=== PATIENT | male | born 1995 | race Caucasian/White ===

== ENCOUNTER 2024-04-19 20:59 | Emergency (ER) | payer MEDICAID, SELFPAY ==
--- NOTE | ~2024-04-19 | CT_ITS ---
CT abdomen pelvis wo con Ordering provider: Marcio Purvis MD History: 28 years Male with . right flank pain blood in urine . Comparison: None. Technique: CT abdomen and pelvis without IV and without oral contrast. Automated exposure control and iterative reconstruction technique were employed. The dose-length product was 508.40 mGy-cm. Findings: VISUALIZED LOWER CHEST: Normal. UPPER ABDOMINAL ORGANS: Liver: Slight hepatomegaly. Gallbladder: Not demonstrated suggestive of surgical removed. Spleen: Normal. Stomach/duodenum: Normal. Pancreas: Normal. Adrenals: Normal. Kidneys: Normal. PELVIC ORGANS: The bladder is normal. BOWEL AND MESENTERY: Colon: No evidence of diverticulitis. Fecal material is seen in the right side of the colon. The desc ending colon is seen medially with small bowel is seen lateral to the colon. The appendix is not demo nstrated. Small Bowel: Normal. No obstruction. Peritoneum/mesentery: No free air or free fluid. No mesenteric lymphadenopathy. RETROPERITONEUM: Normal aorta. No retroperitoneal lymphadenopathy. MUSCULOSKELETAL: Superficial soft tissues: The superficial soft tissues are normal. Bones: Normal spine. IMPRESSION: 1. No evidence of appendicitis, diverticulitis or intestinal obstruction. 2. Hepatomegaly. 3. Constipation. Reviewed, dictated and finalized at location A.
[2024-04-19 20:59] VITALS: BP 130/87; PULSE 98; RESP 20; TEMP 36.8; O2SAT 98
--- NOTE | 2024-04-19 21:24 | PC.NURSE ---
DR SANCHEZ AT THE BEDSIDE. BLOOD WORK AND URINE TAKEN DOWN TO LAB
--- NOTE | 2024-04-19 21:33 | PC.NURSE ---
PATIENT TRANSPORTED TO CT
[2024-04-19 21:34] LABS: Basophils Absolute Auto 0.04 K/mm3 (0.00-0.10); Basophils Percent Auto 0.6 % (0.0-1.0); Eosinophils Absolute Auto 0.12 K/mm3 (0.02-0.50); Eosinophils Percent Auto 1.7 % (1.0-6.0); Hematocrit 43.7 % (40.0-54.0); Hemoglobin 14.6 g/dL (14.0-18.0); Immature Granulocyte Absolute 0.03 K/mm3 (0.00-0.00); Immature Granulocyte Percent A 0.4 % (0.0-0.0); Lymphocytes Percent Auto 33.4 % (18.0-42.0); Mean Corpuscular HGB Conc 33.4 g/dL (32-36); Mean Corpuscular Hemoglobin 28.5 pg (27.0-31.0); Mean Corpuscular Volume 85.4 fL (78.0-102.0); Mean Platelet Volume 9.6 fl (8.7-11.0); Monocytes Absolute Auto 0.51 K/mm3 (0.10-0.90); Monocytes Percent Auto 7.4 % (2.0-11.0); Neutrophils Absolute Auto 3.88 K/mm3 (1.70-7.20); Neutrophils Percent Auto 56.5 % (50.0-70.0); Platelet Count Result 268 K/mm3 (150-420); Red Blood Count 5.12 M/mm3 (4.70-6.10); Red Cell Distribution Width 13.9 % (11.6-14.4); White Blood Count 6.9 K/mm3 (4.8-10.8)
[2024-04-19] MEDS: SODIUM CHLORIDE 0.9% IV 1,000 ML 999 ML IV CONT (21:36)
[2024-04-19] MEDS: MORPHINE SULFATE (*CRX) 4 MG/ML INJ IV PUSH (21:36)
[2024-04-19] MEDS: ONDANSETRON INJ 4 MG/2 ML VIAL IV PUSH (21:36)
--- OUTSIDE RECORDS SUMMARY | 2024-04-19 21:41 | XMS_ITS | Encounter Summary ---
Author Organization [facility] Address [address] [place] [address] Care Team Providers Care Professor Of Languages Name Role Phone Unavailable Primary Care Provider Unavailabl e Prior Encounters Date Type Department Care Team Description 02/26/2019 Converted CPS Chart Documents [facility] [id number], [facility] [address] [place] [address] <No scans attached> 02/26/2019 Converted 13x Documents [facility] [id number], [facility] [address] [place] [address] <No scans attached> Plan of Treatment Not on file Procedures Procedure Name Priority Date/Time Associated Diagnosis Comments MISSED APPOINTMENT Routine 05/12/2020 1: 00 AM MDT CANCELLED APPOINTMENT Routine 04/28/2020 1:00 AM MDT COMPREHENSIVE ORAL EVALUATION - NEW OR ESTABLISHED PATIENT Routine 04/16/2020 1:00 AM MST PANORAMIC RADIOGRAPHIC IMAGE Routine 04/16/2020 1:00 AM MST INTRAORAL - COMPREHENSIVE SERIES OF RADIOGRAPHIC IMAGES Routine 04/16/2020 1:00 AM MST INTRAORAL PHOTO Routine 04/16/2020 1:00 AM MST INTRAORAL PHOTO Routine 04/16/2020 1:00 AM MST INTRAORAL PHOTO Routine 04/16/2020 1:00 AM MST INTRAORAL PHOTO Routine 04/16/2020 1:00 AM MST 13 MOD COMPOSITE FILLING Routine 021 1:00 AM MST 4 MOD COMPOSITE FILLING Routine 04/17/19 21 1:00 AM MST Visit Diagnoses Not on file
--- OUTSIDE RECORDS SUMMARY | 2024-04-19 21:41 | XMS_ITS | Encounter Summary ---
Author Organization [facility] Address [address] [place] [address] Phone Care Team Providers Care Owner Manager Name Role Phone No Pcp Per Patient Primary Care Provider Unavail able Encounter Details Date Type Department Care Team (Late st Contact Info) Description 11/12/2018 Procedure Pass [facility] at [address] [address] Social History Tobacco Use Types Packs/Day Years Used Date Smoking Tobacco: Never Smokeless Tobacco: Never Alcohol Use Standard Drinks/Week Comments Yes 0 (1 standard drink = 0.6 oz pure alcohol) 1-2 drinks (mix cocktail) every two weeks Sex and Gender Information Value Date Recorded Sex Assigned at Not on file Legal Sex Male 9:55 AM PST Gender Identity Male 09/26/2022 8:29 PM PDT Sexual Orientation Not on file documented as of this encounter Functional Status * Because of a physical, mental, or emotional condition, do you have serious difficulty doing errandsalone such as visiting the doctor? Answer Date of Assessment Author Status No 11/22/2016 9:52 AM PDT Activ e documented as of this encounter Mental Status * Because of a physical, mental, or emotional condition, do you have serious difficulty concentrating, remembering, or making decisions? (5 years old or older) Answer Entry Date Author Status No 11/22/2016 9:52 AM PDT Activ e documented in this encounter Plan of Treatment Not on file documented as of this encounter Visit Diagnoses Not on filedocumented in this encounter Care Teams Owner Manager Relationship Specialty Start Date End Date No Pcp Per Patient NO PCP PER PATIENT PCP - General 04/14/19 documented as of this encounter
--- OUTSIDE RECORDS SUMMARY | 2024-04-19 21:41 | XMS_ITS | Data Portability ---
Author Organization [place] - [facility] , Main Office Address [address] [place] [address] Care Team Providers Care Broadcast Maintenance Technician Name Role Phone SHERIF MEHTA Primary Care Provider [phone] Assessment Encounter Date Assessment Date Assessment LastModified by Organization Details LastModified Time 04/05/2022 04/05/2022 Cedric is a very pleasant 26-year-old male here today to establish urologic care. He has a complex past medical history significant for hypospadias that was repaired at 6 months, urethroplasty repaired with buccal graft [place] [address] Munoz, myocardial infarction status post CABG, inherent clotting disorder, and urinary retention last year. He also has a history of hypogonadism for which he is on testosterone replacement therapy with IM testosterone and anastrozole for gynecomastia/breas t tenderness. He was living in [place] last year when he went into urinary retention. Their attempts at placing Benavides catheter were unsuccessful and he ultimately required urologic intervention. He was seen at the [facility] that time and it was recommended that he undergo surgery for a recurrent stricture. He was then evaluated by Dr. Calle at [facility]. There he underwent cystoscopy and a retrograde urethrogram was also performed. He reports that they were able to maneuver the cystoscope into his bladder but that he had what sounds like a functional obstruction proximally. Was unclear whether or not this was a stricture versus a functional dysfunction from a tortuous ureter or pelvic floor dysfunction. At that time he was referred for pelvic floor physical therapy but due to insurance reasons this was not performed. His retrograde urethrogram demonstrated dilated proximal urethra that was tortuous but I do not have access to the actual images. 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 He is taking IM testosterone and anastrozole for his hypogonadism. He is interested in switching to Testopel. We did discuss the increased risk of bleeding and clotting should we attempt to perform Testopel. Ultimately I think that something like Jatenzo may be safer for him. He will consider his options and let us know. We full PAR-Q was held regarding the different options for TRT. At this time, I would like for him to see pelvic floor physical therapy as I do agree some component of this may surely be functional. I would also recommend that he follow-up with Dr. Calle at for further management of his urethral stricture history so as to avoid any unnecessary repetitive procedures. Should this not be possible then I would recommend repeat cystoscopy as well as a voiding cystourethrogram. Currently however he is emptying well with no recurrent episodes of retention since last year. For now would like for him to get new testosterone labs in 2 to 3 months and we will proceed from there. He most recently had testosterone and hematocrit checked in February and these were within normal limits. [id number] Not available 04/05/2022 17:28:33 06/17/2022 06/17/2022 06/17/22: Cedric returns today for follow-up regarding his history of urethral stricture, hypogonadism, and nephrolithiasis. Since I last saw him he was able to schedule a visit with his previous urologist at the [facility] for further review regarding his lower urinary tract symptoms. In the meantime he has yet to see pelvic floor physical therapy due to some insurance difficulties and I did resend a referral today. He has undergone testosterone evaluation and I was able to review these results which demonstrated testosterone in the 600s and estradiol within normal limits. He is scheduled to see the reconstructive urologist at [facility] in July. Otherwise he does also report some small stones that he passed recently. He has a known history of small 2 to 3 mm kidney stones that are nonobstructing. At this time I would recommend a 24-hour urinalysis to further evaluate the etiology of his stone disease. He is amenable to this and will follow-up with me in August with a Litholink after he is seen the reconstructive urologist. In the meantime he will continue with testosterone. 04/05/22: Cedric is a very pleasant 26-year-old male here today to establish urologic care. He has a complex past medical history significant for hypospadias that was repaired at 6 months, urethroplasty repaired with buccal graft in [address] Munoz, myocardial infarction status post CABG, inherent clotting disorder, and urinary retention last year. He also has a history of hypogonadism for which he is on testosterone replacement therapy with IM testosterone and anastrozole for gynecomastia/breas t tenderness. He was living in [place] last year when he went into urinary retention. Their attempts at placing Benavides catheter were unsuccessful and he ultimately required urologic intervention. He was seen at the [facility] that time and it was recommended that he undergo surgery for a recurrent stricture. He was then evaluated by Dr. Calle at [facility]. There he underwent cystoscopy and a retrograde urethrogram was also performed. He reports that they were able to maneuver the cystoscope into his bladder but that he had what sounds like a functional obstruction proximally. Was unclear whether or not this was a stricture versus a functional dysfunction from a tortuous ureter or pelvic floor dysfunction. At that time he was referred for pelvic floor physical therapy but due to insurance reasons this was not performed. His retrograde urethrogram demonstrated dilated proximal urethra that was tortuous but I do not have access to the actual images. 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 He is taking IM testosterone and anastrozole for his hypogonadism. He is interested in switching to Testopel. We did discuss the increased risk of bleeding and clotting should we attempt to perform Testopel. Ultimately I think that something like Jatenzo may be safer for him. He will consider his options and let us know. We full PAR-Q was held regarding the different options for TRT. At this time, I would like for him to see pelvic floor physical therapy as I do agree some component of this may surely be functional. I would also recommend that he follow-up with Dr. Calle at for further management of his urethral stricture history so as to avoid any unnecessary repetitive procedures. Should this not be possible then I would recommend repeat cystoscopy as well as a voiding cystourethrogram. Currently however he is emptying well with no recurrent episodes of retention since last year. For now would like for him to get new testosterone labs in 2 to 3 months and we will proceed from there. He most recently had testosterone and hematocrit checked in February and these were within normal limits. [email or web address] Not available 07/08/2022 15:59:45 11/30/2022 11/30/2022 11/30/22: He returns today for follow-up evaluation. He reports he has had difficulty getting into [facility] for follow-up with his urologist there regarding his urethral stricture disease and is interested in transitioning care here. As such we will plan for cystoscopy in the coming weeks to evaluate for recurrence of his stricture disease. Otherwise he has been doing well with his current dose of testosterone and is not having any polycythemia. We will plan to continue him on his current dose. He has however been to the ED several times since I last saw him with flank pain and concern for kidney stones. Was able to review an old 24-hour urinalysis from 2019 that demonstrated low levels of urine and elevated uric acid levels in his urine. His last stone analysis showed a 100% uric acid calculi. He has not had any recent imaging in the last few months despite several trips to the ED due to concerns about radiation exposure. I would recommend a renal ultrasound at this point. I would also like for him to complete a new 24-hour urinalysis and we will plan to start him on potassium citrate. Full PAR-Q was held regarding this. He is amenable to this and will follow-up with me in the coming weeks for cystoscopy. 06/17/22: Cedric returns today for follow-up regarding his history of urethral stricture, hypogonadism, and nephrolithiasis. Since I last saw him he was able to schedule a visit with his previous urologist at the [facility] for further review regarding his lower urinary tract symptoms. In the meantime he has yet to see pelvic floor physical therapy due to some insurance difficulties and I did resend a referral today. He has undergone testosterone evaluation and I was able to review these results which demonstrated testosterone in the 600s and estradiol within normal limits. He is scheduled to see the reconstructive urologist at [facility] in July. Otherwise he does also report some small stones that he passed recently. He has a known history of small 2 to 3 mm kidney stones that are nonobstructing. At this time I would recommend a 24-hour urinalysis to further evaluate the etiology of his stone disease. He is amenable to this and will follow-up with me in August with a Litholink after he is seen the reconstructive urologist. In the meantime he will continue with testosterone. 04/05/22: Cedric is a very pleasant 26-year-old male here today to establish urologic care. He has a complex past medical history significant for hypospadias that was repaired at 6 months, urethroplasty repaired with buccal graft [place] [address] Munoz, myocardial infarction status post CABG, inherent clotting disorder, and urinary retention last year. He also has a history of hypogonadism for which he is on testosterone replacement therapy with IM testosterone and anastrozole for gynecomastia/breas t tenderness. He was living in [place] last year when he went into urinary retention. Their attempts at placing Benavides catheter were unsuccessful and he ultimately required urologic intervention. He was seen at the [facility] that time and it was recommended that he undergo surgery for a recurrent stricture. He was then evaluated by Dr. Calle at [facility]. There he underwent cystoscopy and a retrograde urethrogram was also performed. He reports that they were able to maneuver the cystoscope into his bladder but that he had what sounds like a functional obstruction proximally. Was unclear whether or not this was a stricture versus a functional dysfunction from a tortuous ureter or pelvic floor dysfunction. At that time he was referred for pelvic floor physical therapy but due to insurance reasons this was not performed. His retrograde urethrogram demonstrated dilated proximal urethra that was tortuous but I do not have access to the actual images. 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 He is taking IM testosterone and anastrozole for his hypogonadism. He is interested in switching to Testopel. We did discuss the increased risk of bleeding and clotting should we attempt to perform Testopel. Ultimately I think that something like Jatenzo may be safer for him. He will consider his options and let us know. We full PAR-Q was held regarding the different options for TRT. At this time, I would like for him to see pelvic floor physical therapy as I do agree some component of this may surely be functional. I would also recommend that he follow-up with Dr. Calle at for further management of his urethral stricture history so as to avoid any unnecessary repetitive procedures. Should this not be possible then I would recommend repeat cystoscopy as well as a voiding cystourethrogram. Currently however he is emptying well with no recurrent episodes of retention since last year. For now would like for him to get new testosterone labs in 2 to 3 months and we will proceed from there. He most recently had testosterone and hematocrit checked in February and these were within normal limits. [email or web address] Not available 11/30/2022 14:31:20 12/09/2022 12/09/2022 12/09/22: He returns today for follow-up evaluation. Cystoscopy demonstrated an area of significant tortuosity in the bulbar urethra which made it very difficult to advance the cystoscope. Eventually I was able to navigate past this and the more proximal urethra appeared widely patent. Overall the area of tortuosity is short, less than 1 cm. However he does feel like he is having to strain more more to void. Cystoscopy did not demonstrate significant trabeculations but he did have trace trabeculation. Ultimately I suspect that he would be best served by a urethroplasty. Given how short the segment is a nontransecting urethroplasty would likely suffice. He would like to proceed with urethroplasty. However he is overall fairly content with his symptoms and it does empty his bladder well. As such he will monitor his symptoms for now and let us know when they become bothersome enough. In the meantime I would recommend a UroCuff evaluation in the coming weeks to ensure that he is not voiding with high pressures. In the meantime a full PAR-Q was held regarding urethroplasty including the need for postoperative catheter for 14 days. 11/30/22: He returns today for follow-up evaluation. He reports he has had difficulty getting into [facility] for follow-up with his urologist there regarding his urethral stricture disease and is interested in transitioning care here. As such we will plan for cystoscopy in the coming weeks to evaluate for recurrence of his stricture disease. Otherwise he has been doing well with his current dose of testosterone and is not having any polycythemia. We will plan to continue him on his current dose. He has however been to the ED several times since I last saw him with flank pain and concern for kidney stones. Was able to review an old 24-hour urinalysis from 2019 that demonstrated low levels of urine and elevated uric acid levels in his urine. His last stone analysis showed a 100% uric acid calculi. He has not had any recent imaging in the last few months despite several trips to the ED due to concerns about radiation exposure. I would recommend a renal ultrasound at this point. I would also like for him to complete a new 24-hour urinalysis and we will plan to start him on potassium citrate. Full PAR-Q was held regarding this. He is amenable to this and will follow-up with me in the coming weeks for cystoscopy. 06/17/22: Cedric returns today for follow-up regarding his history of urethral stricture, hypogonadism, and nephrolithiasis. Since I last saw him he was able to schedule a visit with his previous urologist at the [facility] for further review regarding his lower urinary tract symptoms. In the meantime he has yet to see pelvic floor physical therapy due to some insurance difficulties and I did resend a referral today. He has undergone testosterone evaluation and I was able to review these results which demonstrated testosterone in the 600s and estradiol within normal limits. He is scheduled to see the reconstructive urologist at [facility] in July. Otherwise he does also report some small stones that he passed recently. He has a known history of small 2 to 3 mm kidney stones that are nonobstructing. At this time I would recommend a 24-hour urinalysis to further evaluate the etiology of his stone disease. He is amenable to this and will follow-up with me in August with a Litholink after he is seen the reconstructive urologist. In the meantime he will continue with testosterone. 04/05/22: Cedric is a very pleasant 26-year-old male here today to establish urologic care. He has a complex past medical history significant for hypospadias that was repaired at 6 months, urethroplasty repaired with buccal graft [place] [address] Munoz, myocardial infarction status post CABG, inherent clotting disorder, and urinary retention last year. He also has a history of hypogonadism for which he is on testosterone replacement therapy with IM testosterone and anastrozole for gynecomastia/breas t tenderness. He was living in [place] last year when he went into urinary retention. Their attempts at placing Benavides catheter were unsuccessful and he ultimately required urologic intervention. He was seen at the [facility] that time and it was recommended that he undergo surgery for a recurrent stricture. He was then evaluated by Dr. Calle at [facility]. There he underwent cystoscopy and a retrograde urethrogram was also performed. He reports that they were able to maneuver the cystoscope into his bladder but that he had what sounds like a functional obstruction proximally. Was unclear whether or not this was a stricture versus a functional dysfunction from a tortuous ureter or pelvic floor dysfunction. At that time he was referred for pelvic floor physical therapy but due to insurance reasons this was not performed. His retrograde urethrogram demonstrated dilated proximal urethra that was tortuous but I do not have access to the actual images. 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 He is taking IM testosterone and anastrozole for his hypogonadism. He is interested in switching to Testopel. We did discuss the increased risk of bleeding and clotting should we attempt to perform Testopel. Ultimately I think that something like Jatenzo may be safer for him. He will consider his options and let us know. We full PAR-Q was held regarding the different options for TRT. At this time, I would like for him to see pelvic floor physical therapy as I do agree some component of this may surely be functional. I would also recommend that he follow-up with Dr. Calle at for further management of his urethral stricture history so as to avoid any unnecessary repetitive procedures. Should this not be possible then I would recommend repeat cystoscopy as well as a voiding cystourethrogram. Currently however he is emptying well with no recurrent episodes of retention since last year. For now would like for him to get new testosterone labs in 2 to 3 months and we will proceed from there. He most recently had testosterone and hematocrit checked in February and these were within normal limits. [email or web address] Not available 12/09/2022 19:27:22 04/19/2023 04/19/2023 04/19/23: He returns today for follow up. He reports post operative pain for which he did visit the emergency department. Currently he is doing well. He does have a very superficial dehiscence of his wound without signs of infection. His catheter was removed today. He has resumed anticoagulation and not had any significant bleeding or bruising. He otherwise continues to do well from a hypogonadism standpoint and we will plan for him to continue with his current dose with repeat labs later this year. He has not yet completed a 24 hour urinalysis for further management of his recurrent stones and this was ordered again today. Otherwise I would like for him to follow up with us in 3 months with urocuff. Should his stream slow down prior to that or should he feel he needs to strain to void then he will let us know. 12/09/22: He returns today for follow-up evaluation. Cystoscopy demonstrated an area of significant tortuosity in the bulbar urethra which made it very difficult to advance the cystoscope. Eventually I was able to navigate past this and the more proximal urethra appeared widely patent. Overall the area of tortuosity is short, less than 1 cm. However he does feel like he is having to strain more more to void. Cystoscopy did not demonstrate significant trabeculations but he did have trace trabeculation. Ultimately I suspect that he would be best served by a urethroplasty. Given how short the segment is a nontransecting urethroplasty would likely suffice. He would like to proceed with urethroplasty. However he is overall fairly content with his symptoms and it does empty his bladder well. As such he will monitor his symptoms for now and let us know when they become bothersome enough. In the meantime I would recommend a UroCuff evaluation in the coming weeks to ensure that he is not voiding with high pressures. In the meantime a full PAR-Q was held regarding urethroplasty including the need for postoperative catheter for 14 days. 11/30/22: He returns today for follow-up evaluation. He reports he has had difficulty getting into [facility] for follow-up with his urologist there regarding his urethral stricture disease and is interested in transitioning care here. As such we will plan for cystoscopy in the coming weeks to evaluate for recurrence of his stricture disease. Otherwise he has been doing well with his current dose of testosterone and is not having any polycythemia. We will plan to continue him on his current dose. He has however been to the ED several times since I last saw him with flank pain and concern for kidney stones. Was able to review an old 24-hour urinalysis from 2019 that demonstrated low levels of urine and elevated uric acid levels in his urine. His last stone analysis showed a 100% uric acid calculi. He has not had any recent imaging in the last few months despite several trips to the ED due to concerns about radiation exposure. I would recommend a renal ultrasound at this point. I would also like for him to complete a new 24-hour urinalysis and we will plan to start him on potassium citrate. Full PAR-Q was held regarding this. He is amenable to this and will follow-up with me in the coming weeks for cystoscopy. 06/17/22: Cedric returns today for follow-up regarding his history of urethral stricture, hypogonadism, and nephrolithiasis. Since I last saw him he was able to schedule a visit with his previous urologist at the [facility] for further review regarding his lower urinary tract symptoms. In the meantime he has yet to see pelvic floor physical therapy due to some insurance difficulties and I did resend a referral today. He has undergone testosterone evaluation and I was able to review these results which demonstrated testosterone in the 600s and estradiol within normal limits. He is scheduled to see the reconstructive urologist at [facility] in July. Otherwise he does also report some small stones that he passed recently. He has a known history of small 2 to 3 mm kidney stones that are nonobstructing. At this time I would recommend a 24-hour urinalysis to further evaluate the etiology of his stone disease. He is amenable to this and will follow-up with me in August with a Litholink after he is seen the reconstructive urologist. In the meantime he will continue with testosterone. 04/05/22: Cedric is a very pleasant 26-year-old male here today to establish urologic care. He has a complex past medical history significant for hypospadias that was repaired at 6 months, urethroplasty repaired with buccal graft [place] [address] Munoz, myocardial infarction status post CABG, inherent clotting disorder, and urinary retention last year. He also has a history of hypogonadism for which he is on testosterone replacement therapy with IM testosterone and anastrozole for gynecomastia/breas t tenderness. He was living in [place] last year when he went into urinary retention. Their attempts at placing Benavides catheter were unsuccessful and he ultimately required urologic intervention. He was seen at the [facility] that time and it was recommended that he undergo surgery for a recurrent stricture. He was then evaluated by Dr. Calle at [facility]. There he underwent cystoscopy and a retrograde urethrogram was also performed. He reports that they were able to maneuver the cystoscope into his bladder but that he had what sounds like a functional obstruction proximally. Was unclear whether or not this was a stricture versus a functional dysfunction from a tortuous ureter or pelvic floor dysfunction. At that time he was referred for pelvic floor physical therapy but due to insurance reasons this was not performed. His retrograde urethrogram demonstrated dilated proximal urethra that was tortuous but I do not have access to the actual images. 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 He is taking IM testosterone and anastrozole for his hypogonadism. He is interested in switching to Testopel. We did discuss the increased risk of bleeding and clotting should we attempt to perform Testopel. Ultimately I think that something like Jatenzo may be safer for him. He will consider his options and let us know. We full PAR-Q was held regarding the different options for TRT. At this time, I would like for him to see pelvic floor physical therapy as I do agree some component of this may surely be functional. I would also recommend that he follow-up with Dr. Calle at for further management of his urethral stricture history so as to avoid any unnecessary repetitive procedures. Should this not be possible then I would recommend repeat cystoscopy as well as a voiding cystourethrogram. Currently however he is emptying well with no recurrent episodes of retention since last year. For now would like for him to get new testosterone labs in 2 to 3 months and we will proceed from there. He most recently had testosterone and hematocrit checked in February and these were within normal limits. [email or web address] Not available 04/20/2023 19:00:06 Plan of Treatment Reminders Order Date Submit Date Provider Last Modified By Organization Details Last Modified Time Details Appointments None recorded. Lab unlisted lab - litholink 24HR urine panel 2023 024 MARICHUY [facility], [address], [place], [address], 4 05:01:11 kidney stone, 24-hour urine panel 2022 023 MARICHUY [facility], [address] , [facility] [address], [address], 4 05:01:34 testosteron e, total, serum 2022 023 [email or web address] [facility], [address], [place], [address], 3 12:33:53 estradiol, serum 2022 023 [email or web address] [facility], [address] [facility], [place], [address], 3 12:33:54 hematocrit, blood 2022 023 [email or web address] [facility], [address] [facility], [place], [address], 3 12:33:54 urinalysis, dipstick, auto 2022 023 [email or web address] [facility], [facility], [address], [address], [place], [address], 3 17:28:36 Referral pelvic floor therapy referral - history of pelvic pain, voiding dysfunction 2022 023 [email or web address] [facility], [address] [facility], [address], [place], [address], 4 13:11:27 pelvic floor therapy referral - eval voiding dysfunction /pelvic discomfort 2022 023 [email or web address] [facility], [address], [address], [place], [address], 4 12:26:40 urologist referral - hx buccal repair, seen by Dr. Calle in 2021 023 [email or web address] Alexandria Calle MD, [address], [place], [address], 3 18:00:16 Procedures None recorded. Surgeries None recorded. Imaging US, kidney - eval kidney stone. Please contact patient to schedule. 2022 023 [email or web address] [facility], [address] [place], [address], 4 18:19:49 US, bladder [address] [employer] [facility], [address] [facility] [address], [address], [place], [address], 3 14:29:11 US, bladder [address] [employer] [facility], [address], [address], [place], [address], 3 17:28:36 Medication Orders None recorded. Patient TargetsNo targets recorded. Patient InstructionsNo instructions recorded. Reason for Referral Urologist Referral for Ureth ral stricture hx buccal repair, seen by Dr. Calle in 2021 Referring Physician: [facility], Encounter Date: 04/05/2022 Pelvic Floor Therapy Referra l for Chronic prostatitis - chronic pelvic pain syndrome evaluate and treat pelvic pain history of pelvic pain, voiding dysfunction Referring Physician: [facility], Encounter Date: 06/17/2022 Pelvic Floor Therapy Referra l for Chronic prostatitis - chronic pelvic pain syndrome eval voiding dysfunction/pelvic discomfort eval voiding dysfunction/pelvic discomfort Referring Physician: [facility], Encounter Date: 06/17/2022 Results Created Date Observation Date Name Description Value Unit Range Abnormal Flag Note LastModifiedBy Organization Detail LastModifiedTime 04/05/1904/05/2022 urina lysis , dipst ick, auto leukocytes- final neg negati ve Not Available [facility] [employer] [facility] [address], [place], [address], 04/05/2022 16:34:57 04/05/19 23 04/05/2022 urina lysis , dipst ick, auto nitrite- final neg negati ve Not Available [facility] [employer] [facility] [address], [place], [address], 04/05/2022 16:34:57 04/05/19 23 04/05/2022 urina lysis , dipst ick, auto urobilinogen - final 3.5 mg/dL <0.2 to 1.0 Not Available [address], [address], 04/05/2022 16:34:57 04/05/19 23 04/05/2022 urina lysis , dipst ick, auto protein- final neg negati ve Not Available [address], [address], 04/05/2022 16:34:57 04/05/19 23 04/05/2022 urina lysis , dipst ick, auto pH- final 6.0 6.0 to 7.0 Not Available [address], [address], 04/05/2022 16:34:57 04/05/19 23 04/05/2022 urina lysis , dipst ick, auto blood- final neg negati ve Not Available [address], [address], 04/05/2022 16:34:57 04/05/19 23 04/05/2022 urina lysis , dipst ick, auto specific gravity- final 1.025 1.001 to 1.035 Not Available [address], [address], 04/05/2022 16:34:57 04/05/19 23 04/05/2022 urina lysis , dipst ick, auto ketones- final neg negati ve Not Available [address], [address], 04/05/2022 16:34:57 04/05/19 23 04/05/2022 urina lysis , dipst ick, auto bilirubin- final neg negati ve Not Available [facility] [address] [place] [address], [address], 04/05/2022 16:34:57 04/05/19 23 04/05/2022 urina lysis , dipst ick, auto glucose- final 5 negati ve Not Available [facility] [address] [facility] [address] [place] [address], [address], 04/05/2022 16:34:57 04/05/19 23 04/05/2022 urina lysis , dipst ick, auto appearance- final clear clear Not Available [facility] [address] [place] [address], [address], 04/05/2022 16:34:57 04/05/19 23 04/05/2022 urina lysis , dipst ick, auto color- final yellow yellow to baljeet Not Available [facility] [address], [address], 04/05/2022 16:34:57 11/26/1911/25/2022 LIPID PANEL REFLE X DIREC T LDL cholesterol 155 mg/dL <=199 normal Not Available [facility] - (Lab) [address] [place], [address], 11/25/2022 16:53:52 11/26/1911/25/2022 LIPID PANEL REFLE X DIREC T LDL HDL cholesterol 35 mg/dL >=40 low Not Available [facility] - (Lab) [address] [place], [address], 11/25/2022 16:53:52 11/26/1911/25/2022 LIPID PANEL REFLE X DIREC T LDL triglyceride s 343 mg/dL <=149 high Not Available [facility] - (Lab) [address] [place], [address], 11/25/2022 16:53:52 11/26/19 23 11/25/2022 LIPID PANEL REFLE X DIREC T LDL LDL calc 51 mg/dL <=99 normal Natio nal Onelia stero l Educa tion Panel Class ifica tions : Onelia stero l (mg/d L): Moder ate Risk: 200-2 39; High Risk: >/=24 0 HDL Onelia stero l (mg/d L): Low: <40; High: >/=60 Trigl yceri de (mg/d L; fasti ng): Borde rline High: 150-1 99; High: 200-4 99; Very High: >/=50 0 LDL Onelia stero l (mg/d L): Near or above optim al: 100-1 29; Borde rline High: 130-1 59; High: 160-1 89; Very High: >/=19 0 Not Available [facility] - (Lab) [address] [place], [address], 11/25/2022 16:53:52 11/26/1911/25/2022 LIPID PANEL REFLE X DIREC T LDL chol HDL ratio 4.4 Not Available [facility] - (Lab) [address] [place], [address], 11/25/2022 16:53:52 11/26/1911/25/2022 LIPID PANEL REFLE X DIREC T LDL lipid rflx fasting NON-FA STING Not Available [facility] - (Lab) [address] [place], [address], 11/25/2022 16:53:52 11/26/1911/25/2022 VITAM IN D 25 HYDRO XY vit D 25OH 44.9 NG/mL 30.0-1 00.0 normal Not Available [facility] - (Lab) [address] [place], [address], 11/25/2022 16:57:50 11/26/1911/25/2022 ESTRA DIOL estradiol 25 pg/mL 0-40 normal FEMAL E: Folli cular 20-14 4 pg/mL Midcy hank 64-35 7 pg/mL Lutea l 56-21 4 pg/mL Postm enopa usal( Untre ated) 0-32 pg/mL If estra diol value s are less than the detec table , when clini dania relev ant, consi aliyah using HPLC/ MS-MS testi ng (LAB2 092). Not Available [facility] - (Lab) [address] [place], [address], 11/25/2022 16:59:41 11/26/1911/25/2022 CBC WITH AUTO DIFF AND PLT WBC 6.4 10^9/ L 3.9-10 .6 normal Not Available [facility] - (Lab) [address] [place], [address], 11/25/2022 17:47:08 11/26/1911/25/2022 CBC WITH AUTO DIFF AND PLT RBC 5.61 10^12 /L 4.50-6 .00 normal Not Available [facility] - (Lab) [address] [place], [address], 11/25/2022 17:47:08 11/26/1911/25/2022 CBC WITH AUTO DIFF AND PLT HGB 16.8 g/dL 13.5-1 7.5 normal Not Available [facility] - (Lab) [address] [place], [address], 11/25/2022 17:47:08 11/26/1911/25/2022 CBC WITH AUTO DIFF AND PLT HCT 49.7 % 41.0-5 3.0 normal Not Available [facility] - (Lab) [address] [place], [address], 11/25/2022 17:47:08 11/26/1911/25/2022 CBC WITH AUTO DIFF AND PLT MCV 88.6 fL 80.0-1 00.0 normal Not Available [facility] - (Lab) [address] [place], [address], 11/25/2022 17:47:08 11/26/19 23 11/25/2022 CBC WITH AUTO DIFF AND PLT MCH 29.9 pg 25.0-3 5.0 normal Not Available [facility] - (Lab) [address] [place], [address], 11/25/2022 17:47:08 11/26/1911/25/2022 CBC WITH AUTO DIFF AND PLT MCHC 33.8 g/dL 31.0-3 7.0 normal Not Available [facility] - (Lab) [address] [place], [address], 11/25/2022 17:47:08 11/26/1911/25/2022 CBC WITH AUTO DIFF AND PLT RDW SD 43.8 fL 35.1-4 6.3 normal Not Available [facility] - (Lab) [address] [place], [address], 11/25/2022 17:47:08 11/26/1911/25/2022 CBC WITH AUTO DIFF AND PLT RDW CV 13.8 % 11.5-1 4.5 normal Not Available [facility] - (Lab) [address] [place], [address], 11/25/2022 17:47:08 11/26/1911/25/2022 CBC WITH AUTO DIFF AND PLT plt 305 10^9/ L 140-44 4 normal Not Available [facility] - (Lab) [address] [place], [address], 11/25/2022 17:47:08 11/26/19 23 11/25/2022 CBC WITH AUTO DIFF AND PLT MPV 10.6 fL 6.5-12 .3 normal Not Available [facility] - (Lab) [address] [place], [address], 11/25/2022 17:47:08 11/26/19 23 11/25/2022 CBC WITH AUTO DIFF AND PLT neutrophils 57.6 % 40.0-8 1.0 normal Not Available [facility] - (Lab) [address] [place], [address], 11/25/2022 17:47:08 11/26/19 23 11/25/2022 CBC WITH AUTO DIFF AND PLT lymphocytes 31.2 % 18.0-4 2.0 normal Not Available [facility] - (Lab) [address] [place], [address], 11/25/2022 17:47:08 11/26/19 23 11/25/2022 CBC WITH AUTO DIFF AND PLT monocytes 7.4 % 1.0-12 .5 normal Not Available [facility] - (Lab) [address] [place], [address], 11/25/2022 17:47:08 11/26/19 23 11/25/2022 CBC WITH AUTO DIFF AND PLT eosinophils 2.5 % 0.0-7. 0 normal Not Available [facility] - (Lab) [address] [place], [address], 11/25/2022 17:47:08 11/26/19 23 11/25/2022 CBC WITH AUTO DIFF AND PLT basophils 0.8 % 0.0-2. 0 normal Not Available [facility] - (Lab) [address] [place], [address], 11/25/2022 17:47:08 11/26/19 23 11/25/2022 CBC WITH AUTO DIFF AND PLT immature grans, auto 0.5 % 0.0-1. 0 normal Not Available [facility] - (Lab) [address] [place], [address], 11/25/2022 17:47:08 11/26/19 23 11/25/2022 CBC WITH AUTO DIFF AND PLT neutrophils abs 3.7 10^9/ L 1.8-8. 0 normal Not Available [facility] - (Lab) [address] [place], [address], 11/25/2022 17:47:08 11/26/19 23 11/25/2022 CBC WITH AUTO DIFF AND PLT lymphocytes abs 2.0 10^9/ L 1.0-4. 8 normal Not Available [facility] - (Lab) [address] [place], [address], 11/25/2022 17:47:08 11/26/19 23 11/25/2022 CBC WITH AUTO DIFF AND PLT monocytes abs 0.5 10^9/ L 0.0-0. 9 normal Not Available [facility] - (Lab) [address] [place], [address], 11/25/2022 17:47:08 11/26/19 23 11/25/2022 CBC WITH AUTO DIFF AND PLT eosinophils abs 0.2 10^9/ L 0.0-0. 5 normal Not Available [facility] - (Lab) [address] [place], [address], 11/25/2022 17:47:08 11/26/19 23 11/25/2022 CBC WITH AUTO DIFF AND PLT basophils abs 0.0 10^9/ L 0.0-0. 2 normal Not Available [facility] - (Lab) [address] [place], [address], 11/25/2022 17:47:08 11/26/19 23 11/25/2022 CBC WITH AUTO DIFF AND PLT immature grans, abs 0.03 10^9/ L 0.00-0 .03 normal Not Available [facility] - (Lab) [address] [place], [address], 11/25/2022 17:47:08 11/26/1911/25/2022 TESTO STERO NE, TOTAL AND FREE, LC/MS sex hormone binding globulin 15 nmol/ L 15-95 normal Not Available [facility] - (Lab) [address] [place], [address], 11/27/2022 15:47:41 11/26/19 23 11/27/2022 TESTO STERO NE, TOTAL AND FREE, LC/MS testosterone , lc-MS/MS 998 NG/dL 300-10 80 normal Testo stero ne LC-MS /MS INTER PRETA TIVE INFOR MATIO N-Tot al Testo stero ne, Tanne r Stage Stage Male Femal e Tanne r Stage l 2-15 ng/dL 2-17 ng/dL Tanne r Stage ll 3-303 ng/dL 5-40 ng/dL Tanne r Stage lll 10-85 1 ng/dL 10-63 ng/dL Tanne r Stage IV-V 162-8 47 ng/dL 11-62 ng/dL REFER ENCE INTER ALCIRA, Testo stero ne, LC-MS /MS Age/g kenia speci fic refer ence inter alcira appea rs on repor t. Test devel opariela and verito cteri stics deter mined by [facility]. The [place] Food and Drug Admin istra tion (FDA) has not appro [place] or clear ed this test. The resul ts are not inten ded to be used as the sole means for clini emeli diagn osis or patie nt manag ement decis ions. Not Available [facility] - (Lab) [address] [place], [address], 11/27/2022 15:47:41 11/26/19 23 11/27/2022 TESTO STERO NE, TOTAL AND FREE, LC/MS testosterone , free lc MS 328.1 pg/mL 47.0-2 44.0 high Testo stero ne, Free LC-MS /MS Tanne r Stage Refer ence Inter vals Tanne r Stage Male Femal e Tanne r Stage l Less than 3.8 pg/mL Less than 2.2 pg/mL Tanne r Stage ll 0.3-2 1 pg/mL 0.4-4 .5 pg/ml Tanne r Stage III 1-98 pg/mL 1.3-7 .5 pg/mL Tanne r Stage IV 35-16 9 pg/mL 1.1-1 5.5 pg/mL Tanne r Stage V 41-23 9 pg/mL 0.8-9 .2 pg/mL To conve rt to pmol/ L, multi ply pg/mL by 3.47. The guy ntrat ion of Free Testo stero ne is deriv ed from a jessy hill al expre ssion based on the const ant for the cuong ng of testo stero ne to sex hormo ne cuong ng globu karel. REFER ENCE INTER ALCIRA-T estos kaya e, Free LC MS/MS age/g kenia speci fic refer ence inter vals appea r on the repor t. Test mj bishop and verito bocanegra stics deter mined by [facility] [place] [facility]. The [place] Food and Drug Admin istra tion (FDA) has not appro [place] or clear ed this test. The resul ts are not inten ded to be used as the sole means for clini emeli diagn osis or patie nt manag ement decis ions. Not Available [facility] - (Lab) [address] [place], [address], 11/27/2022 15:47:41 11/26/1911/27/2022 TESTO STERO NE, TOTAL AND FREE, LC/MS testosterone , % free lc MS 3.3 % 0.9-3. 3 normal Not Available [facility] - (Lab) [address] [place], [address], 11/27/2022 15:47:41 11/26/19 23 11/25/2022 HEMOG LOBIN A1C Hb A1C, % 5.3 % <=6.4 normal Paz l: < 5.7% Incre ased risk: 5.7 % - 6.4 % Diabe [facility] Melli tus: >= 6.5 % Not Available [facility] - (Lab) [address] [place], [address], 11/25/2022 21:22:51 11/26/19 23 11/25/2022 HEMOG LOBIN A1C ega 105 mg/dL eGA calcu latio ns from Diabe [facility] 31:14 73-14 78,20 08 Not Available [facility] - (Lab) [address] [place], [address], 11/25/2022 21:22:51 04/05/19 23 04/05/2022 US, bladd er No observ ation record ed. [email or web address] [facility] [address] [place] [address], [address], 04/05/2022 17:38:03 12/01/19 23 11/30/2022 US, bladd er No observ ation record ed. [email or web address] [facility] [address], [address], 11/30/2022 19:54:38 Result Notes None recorded. Problems Name Problem SNOMED Code Status Onset Date Resolution Date Notes Provider Name and Address Organization Details Recorded Time History of pulmonary embolus 939982169 Completed 201903/04/2019 Ad[facility] bark[facility] 4 19:04:07 Heartburn 03748139 Active Maritza Perez-Meet ingucurtis null, [facility] 3 16:16:17 Depressiv e disorder 93875201 Completed 201903/04/2019 Adelaidalucian barker, [facility] 4 19:04:07 Attention deficit hyperacti vity disorder 444883438 Completed 201903/04/2019 Adelaidalucian barker, [facility] 4 19:04:07 Inappropr iate sinus tachycard ia 338258712 [facility] 3 16:16:17 Blood coagulati on disorder 32748857 Active [facility], [facility] 3 16:16:17 Prediabet es 857859630 Completed 201903/04/2019 Adelaida Christensen null, [place] - [facility] 4 19:04:07 Epigastri c pain 51238759 Active [facility] inguez null, [facility] 3 16:16:17 Hematemes is 0466879 Active 2019 [facility] inguez null, [facility] 3 16:16:17 Male hypogonad ism 24826613 Active 2022 Parish Quiroz PA-C [address], [address], [place] [facility] 3 18:16:38 Kidney stone 85627824 Active 2022 Parish Quiroz PA-C [address], [address], [place] - [facility] 3 18:16:44 Disorder of hemostati c system 020467708 Completed 201903/04/2019 Adelaida Christensen null, [place] [facility] 4 19:04:07 History of coronary artery bypass grafting 410824389 Completed 202004/23/2020 Adelaida Christensen null, [facility] 4 19:04:07 Body mass index 40+ - severely obese 076033107 Completed 202004/23/2020 Adelaida Christensen null, [facility] 4 19:04:07 Mild mixed bipolar I disorder 74819649 Completed 202004/23/2020 [facility] Amparo barker, [facility] 4 19:04:07 Hyperlipi demia 82461624 Completed 202004/23/2020 [facility] Amparo null, [facility] 4 19:04:07 Essential hypertens ion 33033558 Completed 202004/23/2020 [facility] Amparo [facility], [facility] 4 19:04:07 Obstructi ve sleep apnea syndrome 54370174 Completed 202004/23/2020 [facility] Amparo barker, [facility] 4 19:04:07 Heart disease 12505918 Active [address] [facility] 16:16:17 Problem Notes None recorded. Procedures Surgical History Date Name Laterality Status Provider Name and Address Organization Details Recorded Time 07/12/19 24 SD-UroCuff cancelled Khushi Lo Located within [facility] 07/11/2023 13:24:04 04/19/19 24 Benavides Catheter Removal completed Vonnie Monreal MD [address] [facility] [address], [address], [facility] 04/19/2023 17:53:35 12/10/19 23 SS cystoscopy M completed Vonnie Monreal MD [address] [facility] [address], [place], [address], [facility] 12/09/2022 19:27:06 12/01/19 23 Bladder Scan/PVR completed Khushi Lo [facility] 11/30/2022 14:24:58 04/05/19 23 Bladder Scan/PVR completed Maritza [facility] 04/05/2022 16:21:39 06/10/19 17 Bladder Scan[facility]PVR [facility] 06/09/2016 19:19:05 Cabg vein four completed [facility] 06/09/2016 19:17:44 Imaging Results Imaging Date Name Status LastModified by Organiz ation Details LastModified Time 04/05/2022 US, bladder completed [email or web address] [facility] [address], [place], [address], 04/05/2022 17:38:03 11/30/2022 US, bladder completed [email or web address] [facility], [facility] [address], [place], [address], 11/30/2022 19:54:38 Procedure Notes None recorded. Medical Equipment None Reported. Allergies Allergen ID Allergen Name Allergen Category Reaction Reaction Severity Criticality Documentation Date Start Date Code Code System Note Provider Name and Address Organization Details Recorded Time Product containin g penicilli n (product) medicatio n hives Not available Not available 06/09/2016 84021 8001 SNOMED Not Available Not Available Not Available mirtazapi ne medicatio n Not available Not available Not available 06/09/20162015 25776 RxNorm Other react ions and sever ities : 'Othe r (See Comme nts)' . Not Available Not Available Not Available 24787 diltiazem Not available anaphylax is severe Not available 04/05/20222018 3443 RxNorm Not Available Not Available Not Available 21236 wasp venoms environme nt anaphylax is severe Not available 04/05/20222018 03226 RxNorm Not Available Not Available Not Available Medications Name Sig Start Date Stop Date Status Note LastModified by Organization Details LastModified Time losartan 50 mg tablet 50 mg by oral route. 06/11 completed Not Available Not Available Not Available amoxicillin 500 mg capsule TAKE 1 CAPSULE BY MOUTH THREE TIMES A DAY FOR 7 DAYS active Not Available Not Available No t Available Mapap Extra Strength 500 mg tablet 03/30 completed Not Available Not Available Not Available lamotrigine 150 mg tablet 150 mg by oral route. 06/11 completed Not Available Not Available Not Available anastrozole 1 mg tablet TAKE 1 TABLET BY MOUTH ONCE A WEEK active Not Available Not Available No t Available promethazin e-DM 6.25 mg-15 mg/5 mL oral syrup 5 mL by oral route. 04/19 completed Not Available Not Available Not Available atorvastati n 80 mg tablet 03/30 completed Not Available Not Available Not Available doxycycline hyclate 100 mg capsule 100 mg by oral route. 04/21 completed Not Available Not Available Not Available cefpodoxime 200 mg tablet TAKE 1 TABLET BY MOUTH EVERY 12 HOURS FOR 7 DAYS active Not Available Not Available No t Available azithromyci n 250 mg tablet 06/09 completed Not Available Not Available Not Available ibuprofen 800 mg tablet 03/30 completed Not Available Not Available Not Available hydrocodone 5 mg-acetamin ophen 325 mg tablet take 1 tablet by mouth every 4 hours for 3 days if needed for PAIN/DISC OMFORT active Not Available Not Available No t Available dextroamphe tamine-amph etamine 10 mg tablet 06/11 completed Not Available Not Available Not Available metoprolol succinate ER 100 mg tablet,exte nded release 24 hr 03/30 completed Not Available Not Available Not Available dextroamphe tamine-amph etamine 12.5 mg tablet TAKE 1 TABLET BY MOUTH TWICE DAILY ONE IN THE MORNING ONE IN THE AFTERNOON , BOOSTER TO VYVANSE active Not Available Not Available No t Available clonazepam 1 mg tablet TAKE 1 TABLET BY MOUTH ONCE DAILY NEEDED BREAKTHRO UGH ANXIETY active Not Available Not Available No t Available clindamycin HCl 150 mg capsule 03/30 completed Not Available Not Available Not Available Advair Diskus 100 mcg-50 mcg/dose powder for inhalation 03/30 completed Not Available Not Available Not Available amlodipine 2.5 mg tablet 03/30 completed Not Available Not Available Not Available amlodipine 5 mg tablet TAKE 1 TABLET BY MOUTH ONCE DAILY active Not Available Not Available No t Available sulfamethox azole 800 mg-trimetho prim 160 mg tablet 1 {tbl} twice a day by oral route. 04/09 completed Not Available Not Available Not Available triamcinolo ne acetonide 0.1 % topical cream apply to affected area ON THE BACK OF HANDS 1 TO 2 TIMES A DAY 03/30 completed Not Available Not Available Not Available Sudogest 30 mg tablet 03/30 completed Not Available Not Available Not Available ketorolac 10 mg tablet TAKE 1 TABLET BY MOUTH EVERY 6 HOURS FOR 65 DAYS 11/16 completed Not Available Not Available Not Available pantoprazol e 20 mg tablet,derrek yed release 20 mg twice a day by oral route. active Not Available Not Available No t Available oxycodone-a cetaminophe n 5 mg-325 mg tablet TAKE 1 TO 2 TABLETS BY MOUTH EVERY 6 HOURS NEEDED FOR PAIN FOR UP TO 3 DAYS active Not Available Not Available No t Available hydromorpho ne 2 mg tablet 06/11 completed Not Available Not Available Not Available tamsulosin 0.4 mg capsule TAKE 1 CAPSULE BY MOUTH ONCE DAILY active Not Available Not Available No t Available dextroamphe tamine-amph etamine ER 20 mg 24hr capsule,ext end release 20 mg by oral route. 06/11 completed Not Available Not Available Not Available dicyclomine 20 mg tablet take 1 tablet by mouth four times a day 03/30 completed Not Available Not Available Not Available potassium citrate ER 10 mEq (1,080 mg) tablet,exte nded release Take 1 tablet twice a day by oral route. active Not Available Not Available No t Available benzonatate 100 mg capsule take 1 capsule by mouth three times a day if needed for cough 03/30 completed Not Available Not Available Not Available morphine 30 mg immediate release tablet 03/30 completed Not Available Not Available Not Available cephalexin 500 mg capsule active Not Available Not Available Not Available pantoprazol e 40 mg tablet,derrek yed release 03/30 completed Not Available Not Available Not Available hyoscyamine sulfate 0.125 mg tablet 03/30 completed Not Available Not Available Not Available dextroamphe tamine-amph etamine 20 mg tablet 06/11 completed Not Available Not Available Not Available promethazin e 25 mg tablet TAKE 1 TABLET BY MOUTH EVERY 8 HOURS NEEDED active Not Available Not Available No t Available valsartan 320 mg tablet active Not Available Not Available Not Available oxycodone 5 mg capsule TAKE ONE CAPSULE BY MOUTH EVERY 6 HOURS NEEDED FOR PAIN active Not Available Not Available No t Available ibuprofen 400 mg tablet TAKE 1 TABLET BY MOUTH 4 TIMES DAILY NEEDED active Not Available Not Available No t Available dextroamphe tamine-amph etamine 15 mg tablet 7.5 mg by oral route. 06/11 completed Not Available Not Available Not Available nitroglycer in 0.4 mg sublingual tablet 06/11 completed Not Available Not Available Not Available montelukast 10 mg tablet active Not Available Not Available Not Available hydrochloro thiazide 25 mg tablet 03/30 completed Not Available Not Available Not Available mupirocin 2 % topical ointment 03/30 completed Not Available Not Available Not Available Transderm-S microscopist 1 mg over 3 days transdermal patch apply 1 patch topically every 72 hours 03/30 completed Not Available Not Available Not Available Cheratussin AC 10 mg-100 mg/5 mL oral liquid 0 mL by oral route. 06/11 completed Not Available Not Available Not Available epinephrine 0.3 mg/0.3 mL injection, auto-inject or INJECT 1 DOSE IN THE MUSCLE NEEDED FOR ANAPHYLAX IS - THEN SEEK MEDICAL ATTENTION active Not Available Not Available No t Available testosteron e cypionate 200 mg/mL intramuscul ar oil INJECT 1/2 (ONE-HALF ) ML INTRAMUSC ULARLY ONCE A WEEK active Not Available Not Available No t Available ibuprofen 600 mg tablet 600 mg every 8 hours by oral route. 2023 active Not Available Not Available Not Avai lable levofloxaci n 750 mg tablet TAKE 1 TABLET BY MOUTH EVERY DAY active Not Available Not Available No t Available methylpredn isolone 4 mg tablets in a dose pack active Not Available Not Available Not Available albuterol sulfate HFA 90 mcg/actuati on aerosol inhaler INHALE 2 PUFFS BY MOUTH EVERY 4 HOURS NEEDED FOR SHORTNESS OF BREATH active Not Available Not Available No t Available oxybutynin chloride 5 mg tablet 5 mg 3 times a day by oral route. active Not Available Not Available No t Available ondansetron 4 mg disintegrat ing tablet DISSOLVE 1 TABLET IN MOUTH EVERY 6 [address] FOR NAUSEA PLACE ON TOUNGE active Not Available Not Available No t Available cefdinir 300 mg capsule take 1 capsule by mouth every 12 hours for 10 days 06/09 completed Not Available Not Available Not Available fluoxetine 20 mg capsule 03/30 completed Not Available Not Available Not Available fluticasone propionate 50 mcg/actuati on nasal spray,suspe nsion 1 {spray} twice a day by nasal route. 06/11 completed Not Available Not Available Not Available metformin ER 500 mg tablet,exte nded release 24 hr TAKE 1 TABLET BY MOUTH ONCE DAILY 11/16 completed Not Available Not Available Not Available colestipol 1 gram tablet 03/30 completed Not Available Not Available Not Available cholecalcif inocente (vitamin D3) 125 mcg (5,000 unit) capsule 5000 units by oral route. active Not Available Not Available No t Available lamotrigine 100 mg tablet 100 mg twice a day by oral route. active Not Available Not Available No t Available glycopyrrol ate 2 mg tablet 4 mg twice a day by oral route. active Not Available Not Available No t Available metoclopram rohan 10 mg tablet take 1 tablet by mouth every 6 hours if needed for nausea 03/30 completed Not Available Not Available Not Available amoxicillin 875 mg-potassiu m clavulanate 125 mg tablet TAKE 1 TABLET BY MOUTH TWICE DAILY FOR 10 DAYS 11/16 completed Not Available Not Available Not Available oxycodone 5 mg tablet Take 1 tablet every 4-6 hours by oral route. active Not Available Not Available No t Available valsartan 160 mg tablet 320 mg by oral route. active Not Available Not Available No t Available enoxaparin 40 mg/0.4 mL subcutaneou s syringe 40 mg by sub-q route. active Not Available Not Available No t Available aripiprazol e 10 mg tablet 03/30 completed Not Available Not Available Not Available rosuvastati n 5 mg tablet 5 mg by oral route. active Not Available Not Available No t Available rosuvastati n 10 mg tablet 10 mg by oral route. 2018 active Not Available Not Available Not Avai lable bupropion HCl XL 150 mg 24 hr tablet, extended release take 1 tablet by mouth once daily 03/30 completed Not Available Not Available Not Available metoprolol tartrate 25 mg tablet 03/30 completed Not Available Not Available Not Available nitrofurant oin monohydrate /macrocryst als 100 mg capsule take 1 capsule by mouth twice a day for 7 days 03/30 completed Not Available Not Available Not Available levalbutero l HFA 45 mcg/actuati on aerosol inhaler 03/30 completed Not Available Not Available Not Available cholecalcif inocente (vitamin D3) 250 mcg (10,000 unit) capsule 06/11 completed Not Available Not Available Not Available pregabalin 100 mg capsule 100 mg twice a day by oral route. active Not Available Not Available No t Available chlorhexidi ne gluconate 0.12 % mouthwash 03/30 completed Not Available Not Available Not Available Symbicort 160 mcg-4.5 mcg/actuati on HFA aerosol inhaler 06/11 completed Not Available Not Available Not Available lisdexamfet amine 70 mg capsule TAKE 1 CAPSULE BY MOUTH ONCE DAILY IN THE MORNING active Not Available Not Available No t Available Vyvanse 60 mg capsule take 1 capsule by mouth every morning active Not Available Not Available No t Available Vyvanse 40 mg capsule 70 mg by oral route. active Not Available Not Available No t Available tramadol ER 100 mg tablet,exte nded release 24hr mphase 03/30 completed Not Available Not Available Not Available Dexilant 60 mg capsule, delayed release 03/30 completed Not Available Not Available Not Available testosteron e 20.25 mg/1.25 gram per pump act.(1.62 %) transdermal gel 2 {act}s by transderm . route. 06/11 completed Not Available Not Available Not Available oxycodone 5 mg tablet,oral ONLY (not feeding tubes) 5 mg every 4 hours by oral route. 2023 active Not Available Not Available Not Avai lable Eliquis 5 mg tablet 5 mg twice a day by oral route. active Not Available Not Available No t Available Breo Ellipta 100 mcg-25 mcg/dose powder for inhalation 06/11 completed Not Available Not Available Not Available Latuda 60 mg tablet 100 mg by oral route. 06/11 completed Not Available Not Available Not Available Corlanor 5 mg tablet 5 mg twice a day by oral route. 06/11 completed Not Available Not Available Not Available Viberzi 75 mg tablet 03/30 completed Not Available Not Available Not Available naloxone 4 mg/actuatio n nasal spray ADMINISTE R A SINGLE SPRAY IN ONE NOSTRIL UPON SIGNS OF OPIOID OVERDOSE. CALL 911. REPEAT AFTER 3 MINUTES IF NO RESPONSE. active Not Available Not Available No t Available Vitals Date Recorded Body height Body mass index (BMI) Body weight Provider Name and Address Organization Details Last Updated DateTime 04/05/2022 172.72 cm 38.9 kg/m2 424794.65 g Maritza lehman [facility] 04/05/2022 16:19:08 Date Recorded Body height Body mass index (BMI) Body weight Provider Name and Address Organization Details Last Updated DateTime 06/17/2022 172.72 cm 37.3 kg/m2 281847.13 g [facility] 06/17/2022 18:26:50 Date Recorded Body height Body mass index (BMI) Body weight Provider Name and Address Organization Details Last Updated DateTime 11/30/2022 172.72 cm 37.3 kg/m2 282239.13 g Khushi Patricioer [facility] 11/30/2022 14:19:52 Date Recorded Body height Body mass index (BMI) Body weight Provider Name and Address Organization Details Last Updated DateTime 12/09/2022 172.72 cm 37.3 kg/m2 634084.13 g Khushi Lo [facility] 12/09/2022 14:47:31 Date Recorded Body height Body mass index (BMI) Body weight Provider Name and Address Organization Details Last Updated DateTime 04/19/2023 172.72 cm 37.3 kg/m2 942736.13 g Hermelinda Mills [facility] 04/19/2023 17:10:44 Social History Question Answer Notes LastModified by Organizat ion Details LastModified Time Tobacco Smoking Status Never Smoker [facility] 06/09/2016 19:17:26 Do You Have An Advance Directive? No Information not available 06/09/2016 What Is Your Level Of Alcohol Consumption? Occasional Information not available 04/05/2022 How Many Years Have You Consumed Alcohol? 4 Information not available 04/05/2022 Are You Blind Or Do You Have Difficulty Seeing? No Information not available 11/30/2022 What Is Your Level Of Caffeine Consumption? Moderate Information not available 04/05/2022 How Much Tobacco Do You Chew? None Information not available 06/09/2016 Are You Deaf Or Do You Have Serious Difficulty Hearing? No [email or web address] Information not available 11/30/2022 Do You Or Have You Ever Used E-cigarettes Or Vape? 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 No Information not available 04/05/2022 What Was The Date Of Your Most Recent Tobacco Screening? 12/09/2022 [email or web address] Information not available 12/09/2022 What Is Your Parents' Marital Status? Information not available 04/05/2022 Have You Ever Been Counseled For Unhealthy Alcohol Use? No Information not available 04/05/2022 What Is Your Relationship Status? Single Information not available 04/05/2022 Do You Or Have You Ever Used Smokeless Tobacco? Never Used Smokeless Tobacco Information not available 04/05/2022 How Much Tobacco Do You Smoke? No Information not available 06/09/2016 Do You Use Any Illicit Or Recreational Drugs? No Information not available 04/05/2022 Has Tobacco Cessation Counseling Been Provided? No Information not available 04/05/2022 Do You Or Have You Ever Used Any Other Forms Of Tobacco Or Nicotine? No Information not available 04/05/2022 How Many Days In The Past Year Have You Consumed 4 Or More Drinks? 2 Information not available 04/05/2022 How Many Days In The Past Year Have You Consumed 5 Or More Drinks? 0 Information not available 04/05/2022 Sex: Unknown Functional Status Question Answer Note LastModified by Organizat ion Details LastModified Time Do you have difficulty walking or climbing stairs? No Information not available 06/09/2016 Are you able to walk? YESWOREST Information not available 04/05/2022 Do you have difficulty doing errands alone? No Information not available 06/09/2016 Do you have difficulty dressing or bathing? No Information not available 06/09/2016 Mental Status Question Answer Note LastModified by Organization D etails LastModified Time Do you have difficulty concentrating, remembering or making decisions? No [email or web address] Information no t available 11/30/2022 Family History Relationship Description Onset Age of this Age Resolved Age Notes LastModified by Organization Details LastModified Time Mother Family history of diabetes mellitus Not available 06/09 19:17:05 Medical History Condition Response Pediatric N High Blood Pressure Y Asthma/Wheezing N GE Reflux N Claustrophobia N Enlarged Prostate N Are you an adult N Crohn's/UC N Metal in your body N Pediatric High Blood Pressure N Weight N Congenital Heart Disease N Glaucoma N Pneumonia N Pediatric Diabetes N Have you fallen in the last year N Previous Influenza Vaccination Y Neurologic (Parkinsons, [place]) N Chemo/Radiation N Are Immunizations Up To Date N Drugs or Medications Taken During Pregna ncy N Diabetes N Syndromes/Chromosomal/Other N Bleeding Disorder Y Tuberculosis (TB) N Lung Problems N ADD/Hyperactivity N Cancer N Stroke N Baby Born at How Many Weeks N Seizures N Previous Pneumonia Vaccination Y Hepatitis N 2+ falls or any fall with injury N Did Mother Have Problems During Pregnanc y N Heart Disease N No falls or 1 fall w/o injury N Problems at N Adrenal Disease N Immunizations Vaccine Type Date Status Note Provider Nam e and Address Organization Details Recorded Time Influenza, split virus, quadrivalent, preservative 6 completed Maritza Perez-Kiera gucurtis null, [place] [facility] 04/05/2022 16:16:25 meningococcal B, OMV 7 completed Maritza Perez-Kiera gucurtis null, [facility] 04/05/2022 16:16:25 meningococcal B, OMV 7 completed Maritza mckeon null, [facility] 04/05/2022 16:16:25 IPV 3 completed Maritza Perez-Domin guez [place], [place] [facility] 04/05/2022 16:16:25 IPV 8 completed Maritza Perez-Domin guez [place], [place] [facility] 04/05/2022 16:16:25 IPV 8 completed Maritza Perez-Domin guez [place], [place] - [facility] 04/05/2022 16:16:25 IPV 8 completed Maritza Perez-Domin guez [place], [place] [facility] 04/05/2022 16:16:25 Influenza, live, trivalent, intranasal 3 completed Adelaida Ethell-Jin [place], [place] - [facility] 04/13/2023 19:04:19 Influenza, live, trivalent, intranasal 2 completed Adelaida Ethell-Jin [place], [place] - [facility] 04/13/2023 19:04:19 MMR 8 completed Maritza Perez-Domin guez null, [place] - [facility] 04/05/2022 16:16:25 MMR 3 completed Maritza Perez-Domin guez null, [place] - [facility] 04/05/2022 16:16:25 MMR 8 completed Maritza Perez-Domin guez null, [place] - [facility] 04/05/2022 16:16:25 MMR 4 completed Maritza Perez-Domin guez null, [place] - [facility] 04/05/2022 16:16:25 MMR 9 completed Adelaida Ethell-Jin null, [place] - [facility] 04/13/2023 19:04:19 MMR 8 completed Adelaida Ethell-Jin null, [place] - [facility] 04/13/2023 19:04:19 pneumococcal polysaccharide PPV23 6 completed Maritza Perez-Domin guez null, [place] - [facility] 04/05/2022 16:16:26 influenza, unspecified formulation 5 completed Maritza Perez-Domin guez null, [place] - [facility] 04/05/2022 16:16:26 influenza, unspecified formulation 5 completed Maritza Perez-Domin guez null, [place] - [facility] 04/05/2022 16:16:26 influenza, unspecified formulation 3 completed Maritza Perez-Domin guez null, [place] - [facility] 04/05/2022 16:16:26 Tdap 5 completed Adelaida Ethell-Jin null, [place] [facility] 04/13/2023 19:04:19 Tdap 6 completed Adelaida Ethell-Jin null, [place] [facility] 04/13/2023 19:04:19 Tdap 2 completed Maritza Perez-Domin guez null, [facility] 04/05/2022 16:16:26 Tdap 9 completed Maritza Perez-Domin guez null, [place] [facility] 04/05/2022 16:16:26 Novel [id number], all formulations 9 completed Adelaida Ethell-Jin null, [place] [facility] 04/13/2023 19:04:19 Pneumococcal conjugate PCV 13 6 completed Maritza Perez-Domin guez null, [facility] 04/05/2022 16:16:26 Pneumococcal conjugate PCV 13 6 completed Adelaida Ethell-Jin null, [facility] 04/13/2023 19:04:19 varicella 3 completed Adelaida Ethell-Jin null, [facility] 04/13/2023 19:04:20 varicella 8 completed Adelaida Ethell-Jin null, [place] [facility] 04/13/2023 19:04:20 TST-PPD intradermal 7 completed Adelaida Ethell-Jin null, [facility] 04/13/2023 19:04:20 HPV, quadrivalent 4 completed Adelaida Ethell-Jin null, [facility] 04/13/2023 19:04:20 HPV, quadrivalent 4 completed Maritza Perez-Domin guez null, [place] - [facility] 04/05/2022 16:16:26 HPV, quadrivalent 3 completed Adelaida Ethell-Jin null, [place] - [facility] 04/13/2023 19:04:20 HPV, quadrivalent 3 completed Maritza Perez-Domin guez null, [place] - [facility] 04/05/2022 16:16:26 HPV, quadrivalent 3 completed Adelaida Ethell-Jin null, [place] - [facility] 04/13/2023 19:04:20 HPV, quadrivalent 3 completed Maritza Perez-Domin guez null, [place] - [facility] 04/05/2022 16:16:26 Hep B, adolescent or pediatric 8 completed Maritza Perez-Domin guez null, [place] - [facility] 04/05/2022 16:16:26 Hep B, adolescent or pediatric 3 completed Adelaida Ethell-Jin null, [place] - [facility] 04/13/2023 19:04:20 Hep B, adolescent or pediatric 8 completed Maritza Perez-Domin guez null, [place] - [facility] 04/05/2022 16:16:26 Hep B, adolescent or pediatric 7 completed Maritza Perez-Domin guez null, [place] - [facility] 04/05/2022 16:16:26 Hep B, adult 8 completed Maritza Perez-Domin guez null, [place] - [facility] 04/05/2022 16:16:26 Hep B, adult 8 completed Maritza Perez-Domin guez null, [place] - [facility] 04/05/2022 16:16:26 Hep A, ped/adol, 2 dose 3 completed Maritza Perez-Domin guez null, [place] - [facility] 04/05/2022 16:16:26 Hep A, ped/adol, 2 dose 3 completed Maritza Perez-Domin guez null, [place] - [facility] 04/05/2022 16:16:26 Hib (PRP-T) 8 completed Adelaida Ethell-Jin null, [place] - [facility] 04/13/2023 19:04:20 Hib (PRP-T) 8 completed Adelaida Ethell-Jin null, [place] - [facility] 04/13/2023 19:04:20 Hib (PRP-T) 8 completed Adelaida Ethell-Jin null, [place] - [facility] 04/13/2023 19:04:20 meningococcal MCV4P 5 completed Adelaida Ethell-Jin null, [place] - [facility] 04/13/2023 19:04:20 meningococcal MCV4P 6 completed Maritza Perez-Domin guez null, [place] - [facility] 04/05/2022 16:16:26 DTaP, 5 pertussis antigens 3 completed Maritza Perez-Domin guez [place], [place] - [facility] 04/05/2022 16:16:26 DTaP, 5 pertussis antigens 8 completed Maritza Perez-Domin guez [place], [place] - [facility] 04/05/2022 16:16:26 DTaP, 5 pertussis antigens 8 completed Mairtza Perez-Domin guez null, [place] - [facility] 04/05/2022 16:16:26 DTaP, 5 pertussis antigens 8 completed Maritza Perez-Domin guez null, [place] - [facility] 04/05/2022 16:16:26 DTaP, 5 pertussis antigens 8 completed Maritza Perez-Domin guez null, [place] - [facility] 04/05/2022 16:16:26 DTaP-Hep B-IPV 8 completed Maritza Perez-Domin guez null, [place] - [facility] 04/05/2022 16:16:26 DTaP-Hep B-IPV 3 completed Maritza Perez-Domin guez null, [place] - [facility] 04/05/2022 16:16:26 DTaP-Hep B-IPV 8 completed Maritza Perez-Domin guez null, [place] - [facility] 04/05/2022 16:16:26 DTaP-Hep B-IPV 7 completed Maritza Perez-Domin guez null, [place] - [facility] 04/05/2022 16:16:26 Influenza, live, quadrivalent, intranasal 4 completed Adelaida Ethell-Jin null, [place] - [facility] 04/13/2023 19:04:20 Influenza, split virus, quadrivalent, PF 9 completed Adelaida Ethell-Jin null, [place] - [facility] 04/13/2023 19:04:20 Influenza, split virus, quadrivalent, PF 6 completed Maritza Perez-Domin guez null, [place] [facility] 04/05/2022 16:16:26 Influenza, split virus, quadrivalent, PF 7 completed Adelaida Ethell-Jin null, [place] [facility] 04/13/2023 19:04:20 Influenza, split virus, quadrivalent, PF 6 completed Adelaida Ethell-Jin null, [place] - [facility] 04/13/2023 19:04:20 Influenza, split virus, quadrivalent, PF 7 completed Maritza Perez-Domin guez null, [place] [facility] 04/05/2022 16:16:26 Hep A-Hep B 3 completed Maritza Perez-Domin guez null, [place] - [facility] 04/05/2022 16:16:27 Hep A-Hep B 3 completed Maritza Perez-Domin guez null, [place] - [facility] 04/05/2022 16:16:27 Influenza, split virus, quadrivalent, preservative 5 completed Adelaida Ethell-Jin null, [place] - [facility] 04/13/2023 19:04:19 Influenza, split virus, quadrivalent, preservative 9 completed Adelaida Ethell-Jin null, [place] - [facility] 04/13/2023 19:04:19 Influenza, MDCK, quadrivalent, PF 0 completed Adelaida Ethell-Jin null, [facility] 04/13/2023 19:04:19 meningococcal MPSV4 6 completed Adelaida Ethell-Jin null, [facility] 04/13/2023 19:04:19 pneumococcal polysaccharide PPV23 7 completed Adelaida Ethell-Jin null, [facility] 04/13/2023 19:04:19 influenza, unspecified formulation 7 completed Adelaida Ethell-Jin null, [facility] 04/13/2023 19:04:19 Tdap 8 completed Adelaida Ethell-Jin null, [facility] 04/13/2023 19:04:19 Influenza, split virus, trivalent, preservative 0 completed Adelaida Ethell-Jin null, [facility] 04/13/2023 19:04:20 Influenza, split virus, trivalent, PF 5 completed Adelaida Ethell-Jin null, [facility] 04/13/2023 19:04:20 Influenza, split virus, trivalent, PF 3 completed Adelaida Ethell-Jin null, [facility] 04/13/2023 19:04:20 Past Encounters Encounter ID Performer Location Encounter Start Date Encounter Closed Date Diagnosis/Indication Diagnosis SNOMED-CT Code Diagnosis ICD10 Code Diagnosis Note [id number] Bernie Shook MD [facility], [facility] [address] [facility] [address] [place] [address] 06/09/2016 12:15:50 06/16/2016 14:22:49 Urethral stricture 42625710 N35.9 I discussed options with patient and reviewed the pluses and minuses of different approaches for urethral stricture. Given young age I believe it is certainly reasonable to attempt a repeat urethropla sty however I recommende d patient see a specialist in this area.After discussion patient would like to schedule with Dr. Gabriel. I personally called [facility] and will help arrange consultati on. [id number] Vonnie Monreal MD [address] [employer] [facility] [address] [place] [address] 9 04/05/2022 16:10:54 04/09/2022 17:59:10 Urethral stricture 59758533 N35.919 Male hypogonadism 932877 06 E29.1 [id number] MD Emanuel Elena [address] [place] [address] [place] [address] 9 06/17/2022 18:14:04 07/09/2022 17:46:39 Chronic prostatitis - chronic pelvic pain syndrome [id number] R10.2 Urethral stricture 16067 [id number] N35.919 Male hypogonadism 171142 06 E29.1 [id number] MD Emanuel Elena [place] [address] 9 11/30/2022 13:53:29 12/03/2022 13:55:07 Chronic prostatitis - chronic pelvic pain syndrome 809882998 R10.2 Urethral stricture 62265 002 N35.919 Male hypogonadism 551238 06 E29.1 Kidney stone 40594095 N2 0.0 [id number] MD Emanuel Elena [address] [place] [address] [address] [place] [address] 9 12/09/2022 14:02:33 12/10/2022 12:33:07 Kidney stone 63651782 N20.0 Chronic pr ostatitis - chronic pelvic pain syndrome 833113688 R10.2 Urethral stricture 21253 002 N35.919 Male hypogonadism 369511 06 E29.1 [id number] MD Emanuel Elena [address] [place], [place] [address] [address] [place] [address] 9 04/19/2023 16:56:08 04/25/2023 19:59:18 Kidney stone 65896053 N20.0 Chronic pr ostatitis - chronic pelvic pain syndrome 371340025 R10.2 Urethral stricture 59856 002 N35.919 Male hypogonadism 452707 06 E29.1 Health Concerns Section Related Observation LastModified by Organization Detai ls LastModified Time None Recorded Concern Status LastModified by Organization Details LastModified Time None Recorded Advance Directives Directive N: Payers Encounter Date Sequence Insurance Name Policy Number Policy Delaney Covered Member ID Delaney Member ID Guarantor Name 04/05/2022 1 [facility] Cedric Buenrostroissel [id number] Cedric Geissel 04/05/2022 1 [facility] [id number] Cedric Geissel [id number] Cedric Geissel 06/17/2022 1 [facility] PL[facility] (O) [id number] Cedric Geissel [id number] Cedric Geissel 11/30/2022 1 [facility] (O) [id number] Cedric Geissel [id number] Cedric Geissel 12/09/2022 1 [facility] (O) [id number] Cedric Geissel [id number] Cedric Geissel 04/19/2023 1 [facility] PL[facility] (O) [id number] Cedric Geissel [id number] Cedric Geissel Notes Date Note Type Note Provider Name and Address Organization Details Recorded Time 04/05/2022 text/html Please see the assessment and plan section of this note for a full history of the present illness. Greater than 45 minutes of face to face time was spent on this encounter with more than half the encounter spent in direct contact with the patient. Vonnie Monreal MD [address] [facility] [id number], [place], [address], [facility] - [facility] 04/05/2022 17:29:22
--- OUTSIDE RECORDS SUMMARY | 2024-04-19 21:41 | XMS_ITS | Encounter Summary ---
Author Organization [facility] Address [address] [place] [address] Phone Care Team Providers Care Onsite Case Manager Name Role Phone No Pcp Per Patient Primary Care Provider Unavail able Encounter Details Date Type Department Care Team (Late st Contact Info) Description 11/02/2018 Procedure Pass [facility] Diagnostic Imaging Services at [address] [address] Social History Tobacco Use Types [...] on filedocumented in this encounter Care Teams Onsite Case Manager Relationship Specialty Start Date End Date No Pcp Per Patient NO PCP PER PATIENT PCP - General 04/14/19 documented as of this encounter
--- OUTSIDE RECORDS SUMMARY | 2024-04-19 21:41 | XMS_ITS | Data Portability ---
Author Organization [place] - [facility] Address [address] [place] [address] Care Team Providers Care Engine Room Helper Name Role Phone JAYANT HERNANDEZ Urologist NIA CRUZ Polysomnographic Tech ANETA BEAL Sleep Medicine HENOK REDDY Carpentry Teacher Assessment Encounter Date Assessment Date Assessment LastModified by Organization Details LastModified Time 04/07/2017 04/07/2017 Upper and lower endoscopy is ordered today. The procedure was described in detail. We carefully reviewed alternatives and risks, including the risks associated with sedation, bleeding, perforation and infection. The patient's questions were answered and the patient consented to proceed. The patient was given tramadol due to his side effects on the hydrocodone and Phenergan suppositories since he is unable to keep anything down at this time. [email or web address] Not available 04/07/2017 18:24:21 Plan of Treatment Reminders Order Date Submit Date Provider Last Modified By Organization Details Last Modified Time Details Appointments None recorded. Lab lactoferri n, qualitativ e, stool 2017 [facility]18 [facility]), [address] [place] [address], 8 18:29:27 giardia + cryptospor idium Ag, stool 2017 018 [facility] (In-House Lab), [address] [place], [address], 8 18:01:31 culture, stool 2017 018 [facility] (In-House Lab), [address] [place], [address], 8 16:42:30 O&P (ova & parasites) , stool 2017 018 [facility] (In-House Lab), [address] [place], [address], 8 19:13:45 C diff toxin DNA, stool 2017 018 [facility] (In-House Lab), [address] [place], [address], 8 20:23:35 influenza (A+B) RNA, qualitativ e, PCR [address] (In-House Lab), [address] [place], [address], 8 21:17:26 CBC w/ diff [address] (In-House Lab), [address] [place], [address], 8 21:17:26 mononucleo sis, heterophil e Ab, blood 2017 018 [facility] (In-House Lab), [address] [place], [address], 8 21:17:40 rapid strep group A, throat 2017 [facility] [address] [place], [address], 8 21:21:00 urinalysis complete, reflex culture 2017 018 [facility] (In-House Lab), [address] [place], [address], 8 21:21:11 CMP, serum or plasma [email or web address] [place] [address] (In-House Lab), [address] [place], [address], 8 11:21:45 Referral None recorded. Procedures None recorded. Surgeries None recorded. Imaging XR, chest, 2 [facility] [address] [place], [address], 8 12:35:48 Medication Orders Ventolin HFA 90 mcg/actuat ion aerosol inhaler 2017 018 [facility], [address] [place], [address], 8 14:56:01 aripiprazo le 10 mg tablet 2017 018 [facility], [address] [place], [address], 8 14:56:05 fluticason e propionate 50 mcg/actuat ion nasal spray,susp ension 2017 018 [facility], [facility] [place], [address], 8 18:52:20 aripiprazo le 10 mg tablet 2017 018 [email or web address] [facility], [address] [place] [address], [address], 8 14:22:17 Adderall 5 mg tablet 2017 018 INTERFACE [facility], [address] [place] [address], [address], 8 18:52:27 citalopram 10 mg tablet 2017 018 [email or web address] [facility], [address] [place] [address], [address], 8 17:53:25 prednisone 20 mg tablet 2017 018 [facility] [id number], [address] [place], [address], 8 17:11:00 Guaifenesi n AC 10 mg-100 mg/5 mL oral liquid 2017 018 [facility] Not available 8 17:09:29 doxycyclin e monohydrat e 100 mg capsule 2017 Jos [id number], [address], [id number], 8 17:09:02 Patient TargetsNo targets recorded. Patient Instructions Encounter Date Encounter Id Patient Instructions Last Modified By Organization Details Last Modified Time 02/13/2017 [id number] CAP: Prescribed abx. Side effects and use reviewed. Instructed it may take 2-3 days to see significant improvement of symptoms. Patient encouraged to eat yogurt or take probiotics while on abx. Instructed to increase hydration and humidification. Indications for RTC discussed, otherwise FU as needed. For severe breathing issues, he was instructed to go to ED/UC. Patient verbalizes understanding and agrees with plan of care. [email or web address] Not available 02/13/2017 11:09:49 03/02/2017 [id number] He will f/u with me in a few weeks, sooner PRN Not available 03/02/2017 18:59:51 Patient has been contacteed by one of our clinically certified employees within 2 working days of discharge from the hospital to help arrange this visit. This is less than 14 days post-hospital transitional care visit. Not available 03/02/2017 19:01:00 Reason for Referral None Reported. Results Created Date Observation Date Name Description Value Unit Range Abnormal Flag Note LastModifiedBy Organization Detail LastModifiedTime 02/15/19 18 02/15/2017 influ patricio (A+B) RNA, quali tativ e, PCR influenza A DNA Not Detect ed not detect ed Not Available [facility] (In-House Lab) [address] [place], [address], 02/15/2017 20:49:12 02/15/19 18 02/15/2017 influ patricio (A+B) RNA, quali tativ e, PCR influenza B DNA Not Detect ed not detect ed Not Available [facility] (In-House Lab) [address] [place], [address], 02/15/2017 20:49:12 02/15/19 18 02/15/2017 CBC w/ diff WBC count 8.9 K/uL 3.8-11 .1 Not Available [facility] (In-House Lab) [address] [place], [address], 02/15/2017 21:13:39 02/15/19 18 02/15/2017 CBC w/ diff RBC count 5.44 M/uL 4.30-5 .60 Not Available [facility] (In-House Lab) [address] [place], [address], 02/15/2017 21:13:39 02/15/19 18 02/15/2017 CBC w/ diff hemoglobin 15.7 g/dL 13.0-1 8.0 Not Available [facility] (In-House Lab) [address] [place] [address], 02/15/2017 21:13:39 02/15/19 18 02/15/2017 CBC w/ diff hematocrit 47 % 38-48 Not Available [facility] (In-House Lab) [facility] [place] [address], 02/15/2017 21:13:39 02/15/19 18 02/15/2017 CBC w/ diff MCV 87 fL 80-99 Not Available [facility] (In-House Lab) [facility] [place] [address], 02/15/2017 21:13:39 02/15/19 18 02/15/2017 CBC w/ diff MCHC 33 g/dL 32-36 Not Available [facility] (In-House Lab) [facility] [place] [address], 02/15/2017 21:13:39 02/15/19 18 02/15/2017 CBC w/ diff RDW 12.8 % 11.5-1 4.5 Not Available [facility] (In-House Lab) [facility] [place] [address], 02/15/2017 21:13:39 02/15/19 18 02/15/2017 CBC w/ diff platelet count 373 K/uL 150-44 0 Testi ng perfo rmed on Sysme x XN-10 00 instr ument Not Available [facility] (In-House Lab) [facility] [place] [address], 02/15/2017 21:13:39 02/15/19 18 02/15/2017 CBC w/ diff neutrophil absolute # 6.5 K/uL 1.6-8. 5 Not Available [facility] (In-House Lab) [facility] [place], [address], 02/15/2017 21:13:39 02/15/19 18 02/15/2017 CBC w/ diff lymphocyte absolute # 1.4 K/uL 0.8-5. 0 Not Available [facility] (In-House Lab) [facility] [place] [address], 02/15/2017 21:13:39 02/15/19 18 02/15/2017 CBC w/ diff monocyte absolute # 0.9 K/uL 0.0-1. 0 Not Available [facility] (In-House Lab) [facility] [place], [address], 02/15/2017 21:13:39 02/15/19 18 02/15/2017 CBC w/ diff eosinophil absolute # 0.0 K/uL 0.0-0. 9 Not Available [facility] (In-House Lab) [facility] [place], [address], 02/15/2017 21:13:39 02/15/19 18 02/15/2017 CBC w/ diff basophil absolute # 0.0 K/uL 0.0-0. 6 Not Available [facility] (In-House Lab) [facility] [place] [address], 02/15/2017 21:13:39 02/15/19 18 02/15/2017 CBC w/ diff imm granulocytes absolute # 0.0 K/uL <0.1 Not Available [facility] (In-House Lab) [address] [address], 02/15/2017 21:13:39 02/15/19 18 02/15/2017 CBC w/ diff neutrophils 73 % Not Available [facility] [place], [address], 02/15/2017 21:13:39 02/15/19 18 02/15/2017 CBC w/ diff lymphocytes 16 % Not Available [facility]) [facility] [place], [address], 02/15/2017 21:13:39 02/15/19 18 02/15/2017 CBC w/ diff monocytes 10 % Not Available [facility] ([facility]) [facility] [place], [address], 02/15/2017 21:13:39 02/15/19 18 02/15/2017 CBC w/ diff eosinophils 0 % Not Available [facility] [place], [address], 02/15/2017 21:13:39 02/15/19 18 02/15/2017 CBC w/ diff basophils 0 % Not Available [facility]) [facility] [place], [address], 02/15/2017 21:13:39 02/15/19 18 02/15/2017 CBC w/ diff imm granulocytes 0.4 % Testi ng perfo rmed on Sysme x XN-10 00 instr ument Not Available [facility] (In-House Lab) [place], [address], 02/15/2017 21:13:39 02/15/19 18 02/15/2017 monon ucleo sis, heter ophil e Ab, blood monospot Negati ve negati ve Not Available [facility] (In-House Lab) [address] [place], [place] [address] [place], [address], 02/15/2017 21:17:39 02/15/19 18 02/15/2017 rapid strep group A, throa t rapid strep screen Negati ve negati ve Confi rmati on by DNA detec tion to eliseo bedollaMera Not Available [facility] (In-House Lab) [address] [place], [place] [address] [place], [address], 02/15/2017 21:21:00 02/15/19 18 02/15/2017 urina lysis compl ete, refle x cultu re urine source clean catch midstr eam Not Available [facility] (In-House Lab) [address] [place], [place] [address] [place], [address], 02/15/2017 21:21:11 02/15/19 18 02/15/2017 urina lysis compl ete, refle x cultu re urine color Yellow Not Available [facility]) [address] [place], [place] [address] [place] [place], [address], 02/15/2017 21:21:11 02/15/19 18 02/15/2017 urina lysis compl ete, refle x cultu re urine clarity Clear Not Available [facility] ([facility] Lab) [address] [place], [place] [address] [place], [address], 02/15/2017 21:21:11 02/15/19 18 02/15/2017 urina lysis compl ete, refle x cultu re urine specific gravity 1.028 1.005- 1.030 Not Available [facility] (In-House Lab) [address] [facility] [place], [address], 02/15/2017 21:21:11 02/15/19 18 02/15/2017 urina lysis compl ete, refle x cultu re urine pH 5.5 5.0-9. 0 Not Available [facility] (In-House Lab) [facility] [place], [address], 02/15/2017 21:21:11 02/15/19 18 02/15/2017 urina lysis compl ete, refle x cultu re urine leukocyte esterase Negati ve negati ve Not Available [facility] (In-House Lab) [facility] [place] [address], 02/15/2017 21:21:11 02/15/19 18 02/15/2017 urina lysis compl ete, refle x cultu re urine nitrite Negati ve negati ve Not Available [facility] (In-House Lab) [facility] [place], [address], 02/15/2017 21:21:11 02/15/19 18 02/15/2017 urina lysis compl ete, refle x cultu re urine protein Negati ve negati ve Not Available [facility] (In-House Lab) [facility] [place], [address], 02/15/2017 21:21:11 02/15/19 18 02/15/2017 urina lysis compl ete, refle x cultu re urine glucose 150 mg/dL normal (rule overri de) high Not Available [facility] (In-House Lab) [facility] [place], [address], 02/15/2017 21:21:11 02/15/19 18 02/15/2017 urina lysis compl ete, refle x cultu re urine ketones Negati ve mg/dL negati ve Not Available [facility] (In-House Lab) [facility] [place], [address], 02/15/2017 21:21:11 02/15/19 18 02/15/2017 urina lysis compl ete, refle x cultu re urobilinogen Normal mg/dL normal Not Available [facility] (In-House Lab) [facility] [place], [address], 02/15/2017 21:21:11 02/15/19 18 02/15/2017 urina lysis compl ete, refle x cultu re urine bilirubin Negati ve negati ve Not Available [facility] (In-House Lab) [address] [place] [address] [place], [address], 02/15/2017 21:21:11 02/15/19 18 02/15/2017 urina lysis compl ete, refle x cultu re urine hemoglobin Negati ve negati ve Not Available [facility] (In-House Lab) [facility] [place], [address], 02/15/2017 21:21:11 02/15/19 18 02/15/2017 urina lysis compl ete, refle x cultu re epithelial cells 0-10 /lpf 0-10 Not Available [facility] ([facility]) [address] [place], [address], 02/15/2017 21:21:11 02/15/19 18 02/15/2017 urina lysis compl ete, refle x cultu re urine RBC 0-1 /hpf 0-1 Not Available [facility] ([facility]) [facility] [place] [address], 02/15/2017 21:21:11 02/15/19 18 02/15/2017 urina lysis compl ete, refle x cultu re urine WBC 0-1 /hpf 0-1 Not Available The [facility] (In-House Lab) [address] [place] [address] [place] [address], 02/15/2017 21:21:11 02/15/19 18 02/15/2017 urina lysis compl ete, refle x cultu re bacteria None Seen /hpf none seen Not Available [facility] (In-House Lab) [address] [place] [address] [place] [address], 02/15/2017 21:21:11 02/15/19 18 02/15/2017 urina lysis compl ete, refle x cultu re culture indicated Not Indica claudia not indica claudia Not Available [facility] (In-House Lab) [address] [place] [address] [place] [address], 02/15/2017 21:21:11 02/15/19 18 02/15/2017 CMP, serum or plasm a sodium 141 mmol/ L 137-14 5 Testi ng perfo rmed using Ortho Diagn ostic s [address] Not Available [facility] (In-House Lab) [address] [place] [address] [place] [address], 02/15/2017 21:54:38 02/15/19 18 02/15/2017 CMP, serum or plasm a potassium 4.6 mmol/ L 3.6-5. 2 Not Available [facility] (In-House Lab) [address] [place] [address] [place] [address], 02/15/2017 21:54:38 02/15/19 18 02/15/2017 CMP, serum or plasm a chloride 103 mmol/ L 96-109 Not Available [facility] (In-House Lab) [facility] [place], [address], 02/15/2017 21:54:38 02/15/19 18 02/15/2017 CMP, serum or plasm a carbon dioxide 25 mmol/ L 22-34 Not Available [facility] (In-House Lab) [facility] [place] [address], 02/15/2017 21:54:38 02/15/19 18 02/15/2017 CMP, serum or plasm a glucose 105 mg/dL 70-99 high Not Available [facility] (In-House Lab) [facility] [place] [address], 02/15/2017 21:54:38 02/15/19 18 02/15/2017 CMP, serum or plasm a urea nitrogen (BUN) 18 mg/dL 9-29 Not Available [facility] (In-House Lab) [facility] [place], [address], 02/15/2017 21:54:38 02/15/1902/15/2017 CMP, serum or plasm a creatinine (idms traceable) 1.00 mg/dL 0.70-1 .30 Not Available [facility] (In-House Lab) [facility] [place] [address], 02/15/2017 21:54:38 02/15/19 18 02/15/2017 CMP, serum or plasm a calcium 9.9 mg/dL 8.4-10 .2 Not Available [facility] (In-House Lab) [facility] [place] [address], 02/15/2017 21:54:38 02/15/19 18 02/15/2017 CMP, serum or plasm a total protein 7.0 g/dL 6.3-8. 2 Not Available [facility] (In-House Lab) [facility] [place] [address], 02/15/2017 21:54:38 02/15/19 18 02/15/2017 CMP, serum or plasm a albumin 4.6 g/dL 3.5-5. 0 Testi ng perfo rmed on Ortho Diagn ostic s Vitro s [address] Not Available [facility] (In-House Lab) [facility] [place] [address], 02/15/2017 21:54:38 02/15/19 18 02/15/2017 CMP, serum or plasm a globulin 2.4 g/dL 2.4-3. 5 Not Available [facility] (In-House Lab) [facility] [place] [address], 02/15/2017 21:54:38 02/15/19 18 02/15/2017 CMP, serum or plasm a A/G ratio 1.9 1.1-2. 2 Not Available [facility] (In-House Lab) [facility] [place] [address], 02/15/2017 21:54:38 02/15/19 18 02/15/2017 CMP, serum or plasm a total bilirubin 0.6 mg/dL 0.2-1. 3 Not Available [facility] (In-House Lab) [facility] [place] [address], 02/15/2017 21:54:38 02/15/19 18 02/15/2017 CMP, serum or plasm a AST (SGOT) 64 U/L 17-59 high Not Available [facility] (In-House Lab) [facility] [place] [address], 02/15/2017 21:54:38 02/15/19 18 02/15/2017 CMP, serum or plasm a ALT (SGPT) 121 U/L 21-72 high Not Available [facility] (In-House Lab) [address] [place], [address], 02/15/2017 21:54:38 02/15/19 18 02/15/2017 CMP, serum or plasm a alk phosphatase 81 U/L 38-126 Not Available [facility] (In-House Lab) [address] [place] [address], 02/15/2017 21:54:38 02/15/19 18 02/15/2017 CMP, serum or plasm a glomerular filtration rate >60 >60 * GFR IDMS- trace able CKD-E PI calcu latio n (mL/m in/1. 73 sq m) If patie nt is Afric an Ameri can, multi ply resul ts by 1.159 Not Available [facility] (In-House Lab) [address] [place], [address], 02/15/2017 21:54:38 02/15/19 18 02/15/2017 CMP, serum or plasm a hours fasting nonfas ting Not Available [facility] (In-House Lab) [address] [place] [address], 02/15/2017 21:54:38 02/15/19 18 02/15/2017 strep tococ cus group A DNA group A streptococcu s DNA Negati ve negati ve Not Available [facility] (In-House Lab) [address] [place] [address], 02/15/2017 22:27:10 04/10/19 18 04/09/2017 C diff toxin DNA, stool toxigenic C difficile DNA Formed Stool - Test not perfor med. negati ve abnormal Not Available [facility] (In-House Lab) [facility] [place], [address], 04/09/2017 20:23:35 04/10/19 18 04/09/2017 C diff toxin DNA, stool C. diff stool description: brn formed Not Available [facility] (In-House Lab) [facility] [place], [address], 04/09/2017 20:23:35 04/10/19 18 04/09/2017 giard ia + crypt ospor idium Ag, stool giardia Negati ve negati ve Not Available [facility] (In-House Lab) [address] [place] [address] [place], [address], 04/10/2017 18:01:31 04/10/19 18 04/09/2017 giard ia + crypt ospor idium Ag, stool cryptosporid ium Negati ve negati ve Not Available [facility] (In-House Lab) [address] [place], [place] [address] [place], [address], 04/10/2017 18:01:31 04/10/19 18 04/09/2017 lacto tianna n, quali tativ e, stool fecal lactoferrin Negati ve negati ve The Fecal Lacto tianna n test detec ts eleva claudia level s of lacto tianna n relea sed from fecal leuko cytes as a marke r of intes tinal infla mmati on. Not Available [facility] (In-House Lab) [address] [place], [place] [address] [place], [address], 04/10/2017 18:29:27 04/10/19 18 04/09/2017 cultu re, stool final report Microb iology result s SOURC E Media PRELI MINAR Y RESUL T No Salmo maximo , Shige lla, Campy lobac ter, or E.col i 0157 in 48 hours . RESUL T No Salmo maximo , Shige lla, Campy lobac ter, or E.col i 0157 in 72 hours . RESUL T Negat irais for Shiga toxin 1 and Shiga toxin 2 Not Available [facility] (In-House Lab) [address] [place], [address], 04/12/2017 15:35:38 04/10/19 18 04/09/2017 O&P (ova & tabby ites) , stool ova + parasite exam Commen t No ova, cysts , or tabby ites seen. These resul ts were obtai vonnie using wet prepa ratio n(s) and trich carlee stain ed smear . This test does not inclu de testi ng for Crypt ospor idium parvu m, Cyclo spora , or Micro spori marcia. Not Available [facility] (In-House Lab) [address] [place], [address], 04/13/2017 19:13:45 04/10/19 18 04/09/2017 cultu re, stool prelim report Microb iology result s SOURC [employer] PRELI MINAR Y RESUL T No Salmo maximo , Shige lla, Campy lobac ter, or E.col i 0157 in 48 hours . RESUL T Negat irais for Shiga toxin 1 and Shiga toxin 2 Not Available [facility] (In-House Lab) [address] [place], [address], 04/11/2017 12:25:12 04/10/19 18 04/09/2017 cultu re, stool prelim report Microb iology result s SOURC [employer] Media RESUL T Negat irais for Shiga toxin 1 and Shiga toxin 2 Not Available [facility] (In-House Lab) [address] [place], [address], 04/10/2017 16:42:30 04/13/19 18 04/12/2017 patho logy study final diagnosis A. Duoden al biopsi es: - Very small , focal lymph devora ctasi a B. Gastr ic biops ies: - Chron ic gastr itis, nonsp ecifi c cristina rn (see comme nt) CMera flannery colon biops ies: - Colon ic mucos a witho ut defin ite histo logic abnor malit y Elect ronic cindy peter d by Ra Brown MD on 018 at 10:14 AM Not Available [facility] (In-House Lab) [address] [place], [address], 04/14/2017 13:16:00 04/13/19 18 04/12/2017 patho logy study diagnosis comment I doubt the small duode nal lymph devora ctasi a would have been sympt omati c by tierra Morrison ased plasm a cells are ident ified in the gastr ic antra l mater ial, but I see no evide nce of acute infla mmati on and I do not ident nuno helic obact er in the routi ne stain s. I will not proce ed to immun ostai ns, but they can be done if clini dania ketty able. Not Available [facility] (In-House Lab) [address] [place], [address], 04/14/2017 13:16:00 04/13/19 18 04/12/2017 patho logy study case report GSR Surg Path Case: [id number] Not Available [facility] (In-House Lab) [address] [place], [address], 04/14/2017 13:16:00 04/13/19 18 04/12/2017 patho logy study report SEE NOTE CASE REPOR T - Autho carlos g Provi aliyah: Geronimo Khan MD Colle cted: 04/12 1730 Patho logis t: Ra Brown as Tim alcala, Recei fransisco: 04/13 0844 Speci mens: A) - Duode num B) - Stoma ch (Rosey allison) C) - Colon Biops y, Rando m Not Available [facility] (In-House Lab) [address] [place], [address], 04/14/2017 13:16:00 04/13/19 18 04/12/2017 patho logy study clinical information Nausea , vomiti ng, diarrh ea. Three speci mens recei fransisco label ed Nora an Porteriss el. A) Recei fransisco in forma karel label ed duod enal biops y are multi ple friab le fragm ents of mucos al soft tissu e rangi ng from 0.2 to 0.5 cm. Entir olivia submi tted in A1. B) Recei fransisco in forma karel label ed rosey allison biops y are three fragm ents of mucos al soft tissu e rangi ng from 0.2 to 0.5 cm. Entir olivia submi tted in B1. C) Recei fransisco in forma karel label ed rand om colon biops y are multi ple friab le fragm ents of mucos al soft tissu e rangi ng from 0.2 to 0.5 cm. Entir olivia submi tted in C1. (RL) Not Available [facility] (In-House Lab) [address] [place], [address], 04/14/2017 13:16:00 04/13/19 18 04/12/2017 patho logy study professional services provided by [facility], [address] [facility], Former[place] [facility] [place] [address] Not Available [facility] (In-House Lab) [address] [place], [address], 04/14/2017 13:16:00 02/15/19 18 02/15/2017 chest x-ray 2 view FINAL RESULT [facility] , [address] [place] [address], [facility] , [address] [address]DA XRAY: [phone] WATE DO DEXTER ADAM : 1995, Patien t Phone: C PROCED URE: X-RAY CHEST, TWO VIEWS INDICA TION: Produc tive cough for two weeks. COMPAR SOFIYA: No compar isons. FINDIN GS Multip le sterna l wires and surgic al densit ies are presen t. The lowest sterna l wire is fractu re. The osseou s and soft tissue struct ures are within normal limits . The cardio medias tinal silhou ette is normal . The lungs are clear. No pneumo thorax is seen. No effusi ons are eviden t. CONCLU JOSEPH No acute cardio pulmon jeramy proces s. Dictat ed by: Rudi thrasher MD on 018 at 17:20 Transc ribed by: TRUONG on 018 at 17:23 Approv ed by: Rudi thrasher MD on 018 at 17:28 [email or web address] [id number], [place], [id number], 02/15/2017 21:49:37 04/16/19 18 04/12/2017 upper endos copy (EGD) with colon oscop y (PROC ) No observ ation record ed. whitney [place] [facility] [address] [place], [address], 04/15/2017 12:47:17 Result Notes None recorded. Problems Name Problem SNOMED Code Status Onset Date Resolution Date Notes Provider Name and Address Organization Details Recorded Time Hyperlip idemia 86023273 Active Marely Fiore - RE RECORDING MIXER null, [place] - [place] [facility] 8 14:22:19 Hypogona dism 37923707 Active Sharise Fiore - RE RECORDING MIXER null, [place] - [place] [facility] 8 14:22:18 Acid reflux 187270269 Active Sharise Fiore - RE RECORDING MIXER null, [place] - [place] [facility] 8 14:22:19 Hyperten sive disorder 92837486 Active Sharise Fiore - RE RECORDING MIXER null, [place] - [place] [facility] 8 14:22:18 Bipolar disorder 79611499 Active Sharise Fiore - RE RECORDING MIXER null, [place] - [place] [facility] 8 14:22:18 Asthma 156894629 Completed 12/23/2016 Removal Reason: Asthma testing came back negative ( per patient ) Maria Eugenia Damico DO [address], [place], [address], [place] - [place] [facility] 8 14:53:57 Undiffer entiated attentio n deficit disorder 21829014 Active Sharise Fiore - RE RECORDING MIXER null, [place] - [place] [facility] 8 14:22:19 Vitamin deficien cy 83280670 Active Sharise Fiore - RE RECORDING MIXER null, [place] - [place] [facility] 8 14:22:19 Irritabl e bowel syndrome 75264604 Active Sharise Fiore - RE RECORDING MIXER null, [place] - [place] [facility] 8 14:22:19 Coronary arterios clerosis 75841897 Active 2016 Sharise Fiore - RE RECORDING MIXER null, [place] - [place] [facility] 8 14:22:18 Recurren t urinary tract infectio n 164136526 Active 2016 Sharise Fiore - RE RECORDING MIXER null, [place] - [place] [facility] 8 14:22:19 Acute prostati tis 30459983 Completed 201608/23/2016 Removal Reason: resolved Carolina olsen RN [address], [place], [address], [place] [facility] 7 13:30:08 Hypospad ias 615102244 Active 2016 Sharise Fiore - RE RECORDING MIXER null, [place] - [place] [facility] 8 14:22:19 Obstruct irais sleep apnea of adult 28237238049 03 Active 2016 Sharise Fiore - RE RECORDING MIXER null, [place] - [place] [facility] 8 14:22:19 Small bowel obstruct ion 483819405 Completed 201611/04/2016 Removal Reason: resolved Carolina olsen, RN [address], [place], [address], [place] [facility] 7 13:42:54 Nausea and vomiting 23493062 Completed 201603/02/2017 [facility], 11/04/16, Dr. 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 709615525 Active 201702/23/17 [facility] Melina Ellis DO Sharise Fiore - RE RECORDING MIXER null, [place] - [place] [facility] 8 14:22:19 Asthma 198518652 Active 2017 Maria Eugenia Damico DO [address], [place], [address], [place] [facility] 8 14:53:57 Problem Notes Documentation Provider Name and Address Organization Details Recorded Time Upper Endoscopy (egd) With C olonoscopy (proc) : [facility] [address] [place] [address]QQSFIHY, NATHAN (id #[id number], : 1995) Documents sent via fax will include the following message: This fax may contain sensitive and confidential personal health information that is being sent for the sole use of the intended recipient. Unintended recipients are directed to securely destroy any materials received. You are hereby notified that the unauthorized disclosure or other unlawful use of this fax or any personal health information is prohibited. If you received this fax in error, please visit [email or web address] to notify the sender and confirm that the information will be destroyed. If you do not have internet access, please call to notify the sender and confirm that the information will be destroyed. Thank you for your attention and cooperation. [ID:[id number]][facility] [address] [place] [address] , date: 04/12/2017RE: Colleen Aida, : 1995, PT ID #[id number] Chun MD, I would like to thank you for referring Colleen Parra to our practice for consultation and evaluation of nausea/vomiting, diarrhea , on 04/12/2017. I have enclosed a copy of the office evaluation for your records. Once again, thank you for allowing me to participate in the care of this patient. Sincerely, Electronically Signed by: ESTER KHAN MD Encounter Reason/Date nausea/vomiting, diarrhea 04/12/2017 - 11:30AM - [facility] History of Present IllnessNone recordedReview of SystemsNone recordedPhysical ExamNone recordedProcedure DocumentationEsophagogastroduodenoscopy and Colonoscopy:EGD with biopsy and Colonoscopy with biopsy Indication:This is a 21-year-old patient with a history of diarrhea, nausea, vomiting for EGD and colonoscopy. Consent:The patient was explained the risks benefits and alternatives to the procedure. Medication:Propofol 400mg IV given in small and slow increments throughout the procedure. Monitoring:The patient's blood pressure, heart rate, and pulse oximetry were stable throughout the procedure. Postop diagnosis:1. Normal esophagus2.Gastric erythema, bile in stomach, biopsies done3. Normal duodenum Details of procedure: The patient was turned on their left lateral decubitus position and the Olympus GIF scope was passed into the second portion of the duodenum without any difficulties. The esophagus was normal in appearance. The Z-line was at 39cm. The stomach showed antral erythema, bile in stomach and biopsies done. The cardia and fundus appeared normal. The duodenum was normal in appearance. Duodenal biopsies were done. Then the patient was turned around and Olympus PCF scope was advanced into the terminal ileum without any difficulties with water immersion technique. The prep was excellent. The terminal ileum was normal in appearance. The cecum, ascending colon, transverse colon and descending colon were normal in appearance. The sigmoid colon was normal in appearance. In the retroflexion in the rectum, normal appearance was found. Random colon biopsies were done. A/P: This is 21 year old man with nausea, vomiting, diarrhea s/p cholecystectomy with bile found. Will consider cholestyramine and await biopsies in meantime.Assessment/Plan1. XtnhwdveC24.7: Diarrhea, unspecified Return to Office None recorded Martine Hanna [place] [facility] [place] [facility] 04/12/2017 15:53:25 Procedures Surgical History Date Name Laterality Status Provider Name and Address Organization Details Recorded Time 02/07/19 17 CABG completed Marcio Walls [facility] [place] [facility] 08/04/2016 17:09:16 02/07/19 16 Cholecystectomy completed Marcio Walls [facility] [place] [facility] 08/04/2016 17:08:37 02/07/19 13 [facility] [place] [facility] [place] [facility] 08/04/2016 17:07:58 02/07/18 98 Other completed [facility] [place] [facility] 08/09/2016 21:15:03 Imaging Results Imaging Date Name Status LastModified by Lori roman Details LastModified Time 02/15/2017 chest x-ray 2 view completed [email or web address] [id number] [place] [address], [place], [phone], 02/15/2017 21:49:37 04/12/2017 upper endoscopy (EGD) with colonoscopy (PROC) completed [facility] [address] [facility] [place], [address], 04/15/2017 12:47:17 Procedure Notes None recorded. Medical Equipment None Reported. Allergies Allergen ID Allergen Name Allergen Category Reaction Reaction Severity Criticality Documentation Date Start Date Code Code System Note Provider Name and Address Organization Details Recorded Time 675332 mirtazapi ne medicatio n Not available Not available Not available 08/09/20162016 50414 RxNorm Other react ions and sever ities : 'Palp itati ons - Moder ate'. [facility] 8 14:22:17 [id number] Product containin g penicilli n (product) medicatio n hives Not available Not available 08/09/2016 51649 8001 SNOMED Marcio Kavita - RE RECORDING MIXER null, [facility] 7 21:12:03 678952 penicilli n G Not available other Not available Not available 04/11/20172015 7980 RxNorm Marely Fiore - RE RECORDING MIXER null, [facility] 8 14:22:17 Medications Name Sig Start Date Stop Date Status Note LastModified by Organization Details LastModified Time cholestyr amine (bulk) powder Take 4 g every day by miscell. route for 30 days. 2017 active Not Available Not Available Not Avai lable atorvasta tin 80 mg tablet Take 1 tablet every day by oral route. 2016 active Not Available Not Available Not Avai lable Protonix 40 mg tablet,de layed release Take 1 tablet every day by oral route. 02/24 completed Not Available Not Available Not Available Adderall 15 mg tablet Take 1 tablet twice a day by oral route. 11/25 completed dose increase d Not Available Not Available Not Available citalopra m 10 mg tablet Take 1 tablet every day by oral route. 04/07 completed Not Available Not Available Not Available Adderall 5 mg tablet take 1 tablet daily in afternoo n as needed 2017 active Not Available Not Available Not Avai lable prednison e 20 mg tablet Take 3 tablets every day by oral route for 5 days. 02/24 completed Not Available Not Available Not Available metoprolo l succinate ER 100 mg tablet,ex tended release 24 hr Take 1 tablet every day by oral route in the morning. 2016 active Not Available Not Available Not Avai lable Advair Diskus 100 mcg-50 mcg/dose powder for inhalatio n Inhale 1 puff twice a day by inhalati on route. 11/25 completed dose increase d Not Available Not Available Not Available amlodipin e 2.5 mg tablet Take 1 tablet every day by oral route in the evening. 11/25 completed dose increase d Not Available Not Available Not Available amlodipin e 5 mg tablet TAKE 1 TABLET (5 MG TOTAL) BY ORAL ROUTE ONCE DAILY 04/07 completed Sig not changed per patient0 02/23/17 per [facility] for 10 mg qd Not Available Not Available Not Available tramadol 50 mg tablet Take 1 tablet every 6 hours by oral route as needed. 2017 active Not Available Not Available Not Avai lable Cholestyr amine Light 4 gram powder for susp in a packet Take 1 packet every day by oral route for 30 days. 2017 active Not Available Not Available Not Avai lable ondansetr on 8 mg disintegr ating tablet Place 1 tablet every 8 hours by translin gual route as needed. 11/25 completed [facility], 11/04/16, Dr. Sandhu Not Available Not Available Not Available Adderall XR 20 mg capsule,e xtended release Take 1 capsule every day by oral route in the morning. 2017 active Not Available Not Available Not Avai lable Zofran ODT 4 mg disintegr ating tablet Take 2 tablets every 8 hours by oral route. active Not Available Not Available No t Available doxycycli ne monohydra te 100 mg capsule Take 1 capsule twice a day by oral route for 7 days. 02/24 completed Not Available Not Available Not Available Phenergan 25 mg rectal supposito ry Insert 1 supposit ory every 8 hours by rectal route. 2017 active Not Available Not Available Not Avai lable Guaifenes in AC 10 mg-100 mg/5 mL oral liquid take 10 ml by mouth every 6 hours as needed for cough 02/24 completed Not Available Not Available Not Available Advair Diskus 250 mcg-50 mcg/dose powder for inhalatio n Inhale 1 puff twice a day by inhalati on route. 12/23 completed Asthma testing came back negative ( per patient ) Not Available Not Available Not Available nitroglyc [place] 0.4 mg sublingua l tablet PLACE 1 TABLET (0.4 MG) BY SUBLINGU AL ROUTE EVERY 5 MINUTES NEEDEDFO R CHEST PAIN. DO NOT EXCEED 3 DOSES IN 15 MINUTES. active Not Available Not Available No t Available aspirin 81 mg chewable tablet Chew 1 tablet every day by oral route in the morning. active 02/23/17 per [facility] Not Available Not Available Not Available monteluka st 10 mg tablet Take 1 tablet every day by oral route in the evening. 11/25 completed Not Available Not Available Not Available aspirin 81 mg tablet Take 1 tablet every day by oral route. 02/24 completed Not Available Not Available Not Available Vitamin D2 1,250 mcg (50,000 unit) capsule Take 1 capsule every week by oral route as directed . 11/25 completed Not Available Not Available Not Available [place] 5 mg-325 mg tablet Take 1 tablet every 4-6 hours by oral route. 04/11 completed Not Available Not Available Not Available fluticaso ne propionat e 50 mcg/actua tion nasal spray,joe pension [place] 1 spray every day by intranas al route. 2017 active Not Available Not Available Not Avai lable Adderall 10 mg tablet Take 1 tablet twice a day by oral route. 08/24 completed Not Available Not Available Not Available Ventolin HFA 90 mcg/actua tion aerosol inhaler Inhale 2 puffs every 4 hours by inhalati on route as needed. 2017 active Not Available Not Available Not Avai lable Reglan 5 mg tablet Take 1 tablet every 6 hours by oral route. active Not Available Not Available No t Available aripipraz ole 10 mg tablet Take 1 tablet every day by oral route. 2017 active 20 mg daily Not Available Not Available Not Available aripipraz ole 20 mg tablet Take 1 tablet every day by oral route in the evening. 03/02 completed Not Available Not Available Not Available rosuvasta tin 40 mg tablet Take 1 tablet every day by oral route. 12/23 completed Started by cardiolo gist. Not Available Not Available Not Available testoster one cypionate Inject 140mg IM once weekly, or as directed . 08/04 completed Not Available Not Available Not Available testoster one 50 mg/5 gram (1 %) transderm al gel Apply one packet daily as Instruct ed to theUpper Arm, Shoulder or Belly For:Defi cient Activity of Testis or Ovary 04/11 completed 02/23/17 per [facility] Not Available Not Available Not Available Dexilant 60 mg capsule, delayed release Take 60 mg by mouth daily 2017 active 02/23/17 [facility] Not Available Not Available Not Available Vitamin D3 125 mcg (5,000 unit) tablet Take 1 tablet every day by oral route. active Not Available Not Available No t Available AndroGel 20.25 mg/1.25 gram per pump act. (1.62 %) transderm al gel Apply 4 pumps every day by transder mal route. active Not Available Not Available No t Available Viberzi 75 mg tablet Take 1 tablet twice a day by oral route. 08/24 completed (takes for irritabl e bowel) Not Available Not Available Not Available Vitals Date Recorded Body height Body mass index (BMI) Body weight Body temperature Heart rate Oxygen saturation Oxygen saturation in Arterial blood by Pulse oximetry Systolic blood pressure Diastolic blood pressure Provider Name and Address Organization Details Last Updated DateTime 8 170.18 cm 37.4 kg/m2 637957. 58 g 98.4 [degF] 85 /min 99 % 99 % 120 mm[Hg] 78 mm[Hg] Chris Gardner [facility] [place] [facility] 8 10:32:45 Date Recorded Respiratory rate Provider Name a nd Address Organization Details Last Updated DateTime 02/13/2017 20 /min Nia Rodriguez, SOFTWARE TESTER [address] [facility], [place], [address], [facility] [place] [facility] 02/13/2017 10:54:06 Date Recorded Body height Heart rate Oxygen saturation Oxygen saturation in Arterial blood by Pulse oximetry Body temperature Systolic blood pressure Diastolic blood pressure Provider Name and Address Organization Details Last Updated DateTime 8 170.18 cm 101 /min 98 % 98 % 98 [degF] 110 mm[Hg] 78 mm[Hg] Aicha Reena [facility] [place] [facility] 8 19:34:30 Date Recorded Body height Body mass index (BMI) Body weight Heart rate Oxygen saturation Oxygen saturation in Arterial blood by Pulse oximetry Systolic blood pressure Diastolic blood pressure Provider Name and Address Organization Details Last Updated DateTime 8 170.18 cm 37 kg/m2 873764. 8 g 83 /min 98 % 98 % 110 mm[Hg] 72 mm[Hg] Marcio Walls [facility] 8 17:59:27 Date Recorded Body height Body mass index (BMI) Body weight Heart rate Body temperature Systolic blood pressure Diastolic blood pressure Provider Name and Address Organization Details Last Updated DateTime 8 170.18 cm 37.6 kg/m2 316280. 17 g 79 /min 98.2 [degF] 134 mm[Hg] 93 mm[Hg] [facility] 8 17:51:38 Date Recorded Body height Heart rate Oxygen saturation Oxygen saturation in Arterial blood by Pulse oximetry Systolic blood pressure Diastolic blood pressure Provider Name and Address Organization Details Last Updated DateTime 8 170.18 cm 98 /min 98 % 98 % 136 mm[Hg] 70 mm[Hg] [facility] 8 14:25:39 Social History Question Answer Notes LastModified by Organizat ion Details LastModified Time Tobacco Smoking Status Never Smoker [facility] [place] [facility] 08/09/2016 21:10:19 What Was The Date Of Your Most Recent Tobacco Screening? 04/11/2017 Information n ot available 08/31/2018 How Much Tobacco Do You Smoke? No lratto Information not available 11/24/2016 Sex: Male Functional Status None recorded. Mental Status None recorded. Family History Relationship Description Onset Age of this Age Resolved Age Notes LastModified by Organization Details LastModified Time Mother Diabetes mellitus mwalder Not available 2016 21:03:28 Mother Depressive disorder mwalder Not available 2016 21:03:38 Unspecified Relation Cerebrovascu lar accident Grandf ather mwalder Not available 08/09/2016 21:04:05 Unspecified Relation Family history of malignant neoplasm Multip le mwalder Not available 08/09/2016 21:04:25 Medical History Condition Response Chest Pain Immunizations Vaccine Type Date Status Note Provider Nam e and Address Organization Details Recorded Time Influenza, split virus, quadrivalent, preservative 6 completed Sharise Fiore - RE RECORDING MIXER null, [place] - [place] [facility] 04/11/2017 14:22:20 pneumococcal polysaccharide PPV23 6 completed Sharise Fiore - RE RECORDING MIXER null, [place] - [place] [facility] 04/11/2017 14:22:20 Tdap 6 completed Not Available [facility] 03/10/2019 02:18:11 HPV, quadrivalent 3 completed Not Available [facility] 03/10/2019 02:18:11 DTaP 8 completed Sharise Fiore - RE RECORDING MIXER null, [place] - [place] [facility] 04/11/2017 14:22:19 IPV 3 completed Sharise Fiore - RE RECORDING MIXER null, [place] - [place] [facility] 04/11/2017 14:22:19 Hib (PRP-T) 8 completed Sharise Fiore - RE RECORDING MIXER null, [place] - [place] [facility] 04/11/2017 14:22:19 IPV 8 completed Sharise Fiore - RE RECORDING MIXER null, [place] - [place] [facility] 04/11/2017 14:22:19 DTaP 8 completed Sharise Fiore - RE RECORDING MIXER null, [place] - [place] [facility] 04/11/2017 14:22:19 Hep B, adolescent or pediatric 8 completed Sharise Fiore - RE RECORDING MIXER null, [place] - [place] [facility] 04/11/2017 14:22:19 DTaP 3 completed Sharise Fiore - RE RECORDING MIXER null, [place] - [place] [facility] 04/11/2017 14:22:19 Novel [id number] 9 completed Sharise Fiore - RE RECORDING MIXER null, [place] - [place] [facility] 04/11/2017 14:22:19 Hib (PRP-T) 8 completed Sharise Fiore - RE RECORDING MIXER null, [place] - [place] [facility] 04/11/2017 14:22:19 MMR 3 completed Sharise Fiore - RE RECORDING MIXER null, [place] - [place] [facility] 04/11/2017 14:22:19 meningococcal MCV4P 5 completed Sharise Fiore - RE RECORDING MIXER null, [place] - [place] [facility] 04/11/2017 14:22:19 MMR 8 completed Sharise Fiore - RE RECORDING MIXER null, [place] - [place] [facility] 04/11/2017 14:22:19 Tdap 2 completed Not Available [facility] 03/10/2019 02:18:11 varicella 8 completed Sharise Fiore - RE RECORDING MIXER null, [place] - [place] [facility] 04/11/2017 14:22:20 IPV 8 completed Sharise Fiore - RE RECORDING MIXER null, [place] - [place] [facility] 04/11/2017 14:22:20 Hep B, adolescent or pediatric 3 completed Not Available [facility] 03/10/2019 02:18:11 IPV 8 completed Sharise Fiore - RE RECORDING MIXER null, [place] - [place] [facility] 04/11/2017 14:22:20 Influenza, split virus, trivalent, PF 3 completed Sharise Fiore - RE RECORDING MIXER null, [place] - [place] [facility] 04/11/2017 14:22:20 Influenza, live, trivalent, intranasal 3 completed Not Available [facility] 03/10/2019 02:18:11 Influenza, live, quadrivalent, intranasal 4 completed Sharise Fiore - RE RECORDING MIXER null, [place] - [place] [facility] 04/11/2017 14:22:20 Tdap 5 completed Not Available [facility] 03/10/2019 02:18:42 HPV, quadrivalent 4 completed Not Available [facility] 03/10/2019 02:18:11 Influenza, live, trivalent, intranasal 2 completed Not Available [facility] 03/10/2019 02:18:11 DTaP 8 completed Sharise Fiore - RE RECORDING MIXER null, [place] - [place] [facility] 04/11/2017 14:22:20 Hep A, ped/adol, 2 dose 3 completed Not Available [facility] 03/10/2019 02:18:11 Hep A, ped/adol, 2 dose 3 completed Not Available [facility] 03/10/2019 02:18:42 Hep B, adolescent or pediatric 8 completed Not Available [facility] 03/10/2019 02:18:11 HPV, quadrivalent 3 completed Not Available [facility] 03/10/2019 02:18:11 Hib (PRP-T) 8 completed Sharise Fioer - RE RECORDING MIXER null, [place] - [place] [facility] 04/11/2017 14:22:20 DTaP 8 completed Sharise Fiore - RE RECORDING MIXER null, [place] - [place] [facility] 04/11/2017 14:22:20 Hep B, adolescent or pediatric 7 completed Not Available [facility] 03/10/2019 02:18:42 Influenza, split virus, quadrivalent, preservative 5 completed Not Available [facility] 03/10/2019 02:18:11 Pneumococcal conjugate PCV 13 6 completed Not Available [facility] 03/10/2019 02:18:11 Influenza, split virus, trivalent, PF 5 completed Not Available [facility] 03/10/2019 02:18:42 Influenza, split virus, quadrivalent, PF 6 completed [facility] 02:18:42 MMR 4 completed Not Available [facility] 03/10/2019 02:18:44 HPV, quadrivalent 4 completed Not Available [facility] 03/10/2019 02:18:42 HPV, quadrivalent 4 completed Not Available [facility] 03/10/2019 02:18:42 Novel [id number], all formulations 9 completed Marely Fiore - [facility] null, [place] - [facility] 04/11/2017 14:22:20 varicella 3 completed Not Available [facility] 03/10/2019 02:18:44 Influenza, split virus, quadrivalent, PF 7 completed Not Available [facility] 02/24/2019 02:30:56 Past Encounters Encounter ID Performer Location Encounter Start Date Encounter Closed Date Diagnosis/Indication Diagnosis SNOMED-CT Code Diagnosis ICD10 Code Diagnosis Note [id number] Maria Eugenia Damico DO [facility] [address] [place] [address] 08/04/2016 16:08:01 08/05/2016 11:18:50 Coronary arteriosclerosis 58559417 I25.10 h/o CABG earlier this year. I am interested to review his records from [facility], but according to patient there was no specific underlying cause for early CAD. He is a non-smoker . He is on appropriat e medication s including aspirin, atorvastat in, metoprolol . BP at goal. He has graduated from cardiac rehab and will continue to gradually build on his exercise routine. He will f/u with cardiologi later this summer as planned. Hypogonadism [id number] E2 9.1 Reported low testostero ne level of around 150 when initially diagnosed. He has been on testostero ne replacemen t for about a year now. He noted improvemen t in some sexual dysfunctio n but no other obvious benefit clinically . Unclear if he needs further workup for underlying cause but I suspect he does given his age. Still need to get outside records. At this point I will have him go off the testostero ne as it is not clear that benefits of ongoing replacemen t outweight the risks, and I will refer him to see endocrinol ogist locally for further evaluation and treatment recommenda tions. Recurrent urinary tract infection [id number] N39.0 He has somewhat complicate d urologic history with 2 prior surgeries. He has had recurrent infections , every couple of months, in recent years. He is not having symptoms currently. He was recommende d to have a trial of long-term antibiotic prophylaxi s but he is hesitant to do that without a clear understand ing of why he is getting the UTIs. He would like to see a new urologist locally and that referral has also been sent. Bipolar disorder 4803202 4 F31.9 Doing well on Abilify. Undifferen tiated attention deficit disorder 97517801 F90.8 He has noted improvemen t with Adderall recently. However, I would be hesitant to use stimulant in patient with recent MO and CABG. May be reasonable given low dose, but I would like for cardiologi st at [facility] to weigh in on this before I would be willing to prescribe. We could also consider non-stimul ant alternativ e. [id number] Maria Eugenia Damico, [facility] [address] [place] [id number] 08/24/2016 11:58:21 08/24/2016 16:39:05 Coronary arteriosclerosis 77601737 I25.10 Early CAD with CABG at age 20. He was thought to have a thrombotic occlusion at bifurcatio n of left main and LAD and underwent single vessel IRBY to LAD bypass. He has been doing well since then and is on appropriat e medical therapy including aspirin, statin, BB. He was having some symptoms thought to be due to coronary spasm and amlodipine has been helpful. He takes NTG as needed. He saw Dr. Cruz in cardiology yesterday who had no additional recommenda tions. Hypogonadism 54702899 E2 9.1 Reported low testostero ne level of around 150 when initially diagnosed. He has been on testostero ne replacemen t for about a year now. Tried going off of it and had significan t hot flashes as well as general fatigue and sexual dysfunctio n. He has been followed by endocrinol ogist in [place] and plans to establish with Dr. Ayon locally in November. Will check again on outside records. Prostatitis 0345777 N41. 9 Will be starting cipro x 2 weeks. Saw [facility] yesterday. Undifferen tiated attention deficit disorder 73137260 F90.8 He has noted improvemen t with Adderall recently. However, I would be hesitant to use stimulant in patient with recent MO and CABG. May be reasonable given low dose. Currently he is being treated by perla p[facility]rez in [place] but plans to transfer care here within the next few months. Irritable bowel syndrome 07590672 K58.9 Doing well on cholestid now. Recently saw GI Dr. Brantley in [place]. [id number] Maria Eugenia Damico, DO [facility] [address] [place] [address] 11/09/2016 20:54:04 11/10/2016 12:29:44 Epigastric pain 70378853 R10.13 Epigastric pain with nausea and vomiting and increased diarrhea from baseline. He had unremarkab le evaluation in ER including imaging with CT scan, normal lipase, normal CMP (except mildly elevated ALT), normal CBC. He has complicate d history including previous UGIB with known PUD and GERD. He may have gastritis or ulcer, although he has been consistent with dexilant which has worked well for him overall. He could also just have a viral gastroente ritis. I did instruct him to stop the naproxen (although he has only taken that past 2-3 days). He should probably have a local GI physician so I will go ahead and refer him to Dr. Khan. In the case that these symptoms do not improve over the next few days or if they worsen, would try to have him seen relatively soon. Also reviewed precaution s for him to return to ER if needed. Acid reflux 446038169 K2 1.9 Has been well-contr olled on Dexilant. Per patient, last EGD was in 04/2014. Irritable bowel syndrome 28816184 K58.9 Had been doing well on cholestid until most recent symptoms started last week. [id number] Ester Khan MD [facility] [address] [place] [address] 11/11/2016 17:15:41 11/11/2016 19:11:36 Nausea and vomiting 50612470 R11.2 will check for celiac (elevated ALT) and is s/p cholecyste ctomy and set up for EGD. PARQ for EGD and he agrees to proceed. He is doing pre-PA program. Dexilant will be continued. He states prilosec did not work, of note. With cardiac history, healthy eating advised. Liver enzy mes level above reference range 690128768 R74.8 [id number] Ester Khan MD [facility] [address] [place] [id number] 11/12/2016 13:15:40 11/12/2016 16:08:00 [id number] Maria Eugenia Damico DO [facility] [address] [facility] [place] [address] 11/25/2016 14:22:12 11/25/2016 16:37:14 Chest pain 05492975 R07.9 He has ongoing chest pain, now down to 210. Stress echo showed ischemia but cath did not show any significan t obstructio n. There was question of possible vasospasm vs small vessel disease. He has had some improvemen t since increasing the amlodipine . He may tolerate higher dose but will defer to cardiologi st for this. I still have some reservatio n about him taking a stimulant half-way. Apparently this was not a concern to the treating cardiology team. I also wonder how his hormonal issues and testostero ne replacemen t may be playing into this. For now, I will have him establish with new local cardiologi st and also f/u at [facility] as planned. Continue current medication s. Hypogonadism 99988652 E2 9.1 He will f/u with Dr. Ayon in endocrinol ogy as planned. Encouraged him to continue working with her on testostero ne taper. Undifferen tiated attention deficit disorder 09841121 F90.8 He has done well with Adderall for ADHD symptoms but I would consider a longer trial off the medication to see if it has any impact on his chest pain symptoms. [id number] Maria Eugenia Damico DO [facility] [address] [facility] [place] [address] 12/23/2016 14:54:14 12/23/2016 15:37:15 Coronary arteriosclerosis 83946925 I25.810 I21.4 R07.9 Fortunatel y he has been doing much better in recent weeks with improvemen t in angina symptoms. He will f/u with cardiologi st as planned. Bipolar disorder 7814855 4 F31.9 Doing well on Abilify. Acid reflux 225984790 K2 1.9 Has been well-contr olled on Dexilant. Will change to Protonix per insurance coverage. F/U with GI as planned. Venereal d isease screening 441741577 Z11.3 Encouraged consistent use of condoms. He would like to have a clean baseline as [facility] Administra tion of influenza vaccine 15423226 Z23 [id number] LAZARO WILSON LCSW [facility] [address] [place] [id number] 01/13/2017 16:23:50 01/17/2017 14:13:02 [id number] Nia Rodriguez NP [facility] [address] [place] [address] 02/13/2017 10:26:49 02/13/2017 10:58:46 Community acquired pneumonia 840882188 J18.9 [id number] Nicholas Lorenzana, DO [facility] [address] [place] [address] 02/15/2017 19:07:27 02/16/2017 12:35:47 Fever 330805955 R50.9 21-year-ol d fever despite being treated for doxycyclin e for community- acquired pneumonia. Was negative, mono was negative and CBC with normal white count. Rapid strep would be negative as with the DNA confirmati on. The urine had a small amount of sugar but no evidence of infection and he has not had any urinary symptoms. No evidence of a pneumonia on his chest x-ray. At this time I suspect a viral illness but he will continue his doxycyclin e as prescribed . It is possible the flu was a false negative. Regardless he has reassuring history and normal vital signs in clinic today with no evidence SIRS or sepsis. He will follow up should symptoms worsen or persist. Acute asthma 690672190 J 45.901 Given his cough will treat with prednisone burst, especially given the increased use of his albuterol. Also prescribed Robitussin with codeine to help him sleep tonight. Liver enzy mes level above reference range 647041440 R74.8 ALT/AST and mildly elevate but in the presence of his statin this is likely from that. With no GI symptoms I do not think that this is related to his fever at all. No further workup indicated this time. Glycosuria 69175019 R81 With a small amount of glucose in the urine a BMP was collected but not consistent with diabetes. This is likely due to his illness and no further workup indicated. [id number] Maria Eugeina Damico, [facility] [address] [place] [address] 03/02/2017 17:40:56 03/02/2017 19:08:56 Anxiety 18260432 F41.9 He has a h/o anxiety and bipolar depression , and had been doing relatively well over the past year or so, but now having some increased stress related to school and family issues as well as his own health issues, and he is not handling it as well. I agree that his ongoing chest pain could certainly be related to anxiety. I think it would be helpful to have him see psychiatry again, and we will look into local options vs having him return to previous provider in [facility]. In the meantime, we discussed some medication options. It is possible the Abilify is causing some anxiety for him, as he is taking a higher dose of this. Will try decreasing that to 10mg daily. Will also start citalopram , which he previously found helpful at least for a period of time. Of note he has been on multiple SSRIs, SNRIs, Wellbutrin , buspar in the past, most without much obvious benefit. Bipolar disorder 6436560 4 F31.9 Chest pain 73948666 R07. 9 Likely related to anxiety as above. He does have significan t cardiac history, but has had multiple recent evaluation s that do not suggest any acute cardiac issues. Chronic angina is also a considerat ion. Cardiology recommende d increasing amlodipine to 10mg daily. Previously he felt very tired with this higher dose so he is hesitant to do that. I think we can focus on treating the anxiety first, then potentiall y increase to 7.5mg daily if he has persistent symptoms. Undifferen tiated attention deficit disorder 66562962 F90.8 He has done well with Adderall XR but feels like it wears off too soon on some of his longer school days. I think it would be worth trying a short-acti ng pill in addition on those days in particular . Under-sukh claudia ADD could be exacerbati ng his anxiety as he is in a very demanding period of school currently, but we also discussed using a lot of caution with stimulant medication s given his medical history. Allergic rhinitis 411672 04 J30.9 [id number] CARMENCITA Hammond-Inocente [facility] [address] [place] [address] 04/07/2017 17:38:16 04/08/2017 13:17:59 Diarrhea 71073221 R19.7 Occult blo od detected in feces 23047068 R19.5 Hematemesis 2755328 K92. 0 [id number] Maria Eugenia Damico, [facility] [address] [facility] [address] 04/11/2017 14:09:50 04/11/2017 16:36:22 Nausea and vomiting 09656308 R11.2 Fortunatel y his symptoms have improved somewhat since ER visit last week. He will f/u with GI as planned tomorrow for EGD/colono scopy. Anxiety 47438352 F41.9 He is doing a little better now on lower dose of abilify and also taking OTC lithium as recommende d by his psychiatri st in [place]. He plans to f/u there but I did refill the abilify for him today. Fortunatel y his chest pain symptoms have been better recently. Bipolar disorder 6971138 4 F31.9 F41.9 Asthma 547244227 J45.90 9 Mild intermitte nt asthma, well-contr olled. [id number] Ester Khan MD [facility] [address] [place] [address] 04/12/2017 13:18:11 04/12/2017 15:47:25 Health Concerns Section Related Observation LastModified by Organization Detai ls LastModified Time None Recorded Concern Status LastModified by Organization Details LastModified Time None Recorded Advance Directives Directive None Recorded Payers Encounter Date Sequence Insurance Name Policy Number Policy Delaney Covered Member ID Delaney Member ID Guarantor Name 02/13/2017 2 [facility] [employer] - [facility] OF DMAP (MEDICAID HMO) Colleen Parra [id number] Colleen Parra 02/15/2017 2 [facility] [employer] - [employer] OF DMAP (MEDICAID HMO) Colleen Parra [id number] Colleen Buenrostroissashwin 02/15/2017 1 [facility] [employer] - OPEN OPTION (EPO) [id number] Colleen Buenrostroissel [id number] Colleen Buenrostroissel 03/02/2017 2 [facility] [employer] - [employer] OF DMAP (MEDICAID HMO) Colleen Parra [id number] Colleen Buenrostroissel 03/02/2017 1 [employer] - OPEN OPTION (EPO) [id number] Colleen S Geissel [id number] Colleen Buenrostroissel 04/07/2017 1 [employer] (EPO) [id number] Colleen S Geissel [id number] Colleen Buenrostroissel 04/11/2017 1 [employer] (EPO) [id number] Colleen S Geissel [id number] Colleen Buenrostroissel Notes Date Note Type Note Provider Name and Address Organization Details Recorded Time 02/13/2017 text/html Colleen is a 21 y o {{female male*}} who presents for a {{worsening cough and fever# non-worsening cough worsening cough}} for {{4# }} days. Developed a respiratory infection 2 weeks ago and thought he was improving. {{He * She}} has tried {{Tylenol 650 mg# }} to treat the fever, which {{has * has not}} helped. States his temperature has been 101.5 the last 2 days. No abx in last 3 months. Penicillin causes hives. Has tolerated taking doxycycline in the past. Color of sputum: yellow Recent fever: {{yes * no}} Malaise: {{yes * no}} History of asthma: {{yes no*}} History of smoking: {{yes no*}} Exposure to secondhand smoke: {{yes no*}} History of COPD: {{yes no*}} Immunizations: UTD including annual flu shot. Hx of heart disease: {{yes * no}} States he had open heart surgery 11 months ago. Hx of heart attack. Nia Rodriguez, SOFTWARE [employer] [address] [place], [address], [facility] 02/13/2017 11:10:36 02/15/2017 text/html A 21-year-old yossi boykin presents for evaluation treatment of fever and cough. Symptoms started on 02/12. He has had some dyspnea night and reports needing his albuterol at least 4 times a day. He has some mild anorexia but is tolerating p.o.. Six weeks ago he was prescribed Septra for a bladder infection. He was evaluated by care on 02/13 and given doxycycline for a community-acquired pneumonia, no labs or imaging done at that time. He reports he still had a fever today and barely slept last night due to his cough. He denies any urinary symptoms at all. Nicholas Lorenzana, DO [address] [place], [address], [facility] 02/15/2017 22:45:08 03/02/2017 text/html 21 y/o M here to day for f/u from recent hospitalization for chest pain. He has a h/o CAD with previous CABG. He has been struggling with persistent chest pain symptoms on and off for that past 6 months or so and has had extensive evaluation for this, thought to have some chronic angina. During recent admission, workup revealed no acute cardiac issues. Cardiology was consulted and recommended increasing amlodipine to 10mg daily. He has not yet done that, as he felt that when he was on this higher dose previously, it caused excessive tiredness. He believes that his symptoms may be due to anxiety. He has long h/o anxiety and bipolar depression and seemed to be doing pretty well over the past year despite multiple medical issues, but recently he has been under even more stress due to school and some family issues, and he is feeling more overwhelmed. He feels like he may be building up physical symptoms and making them worse in his head. He has been on Abilify for about a year now and it seemed to work well for him. Previously he has been on citalopram, escitalopram, wellbutrin, fluoxetine, sertraline, venlafaxine, buspar. Nothing ever seemed that effective. He remembers responding well to citalopram for a period of time then it stopped working. 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 He has not seen anyone locally. Also feels like his ADD is not as well-controlled. On some of his longer days, he is up by 6 and takes his medication and it has worn off by late afternoon. Can't focus on classes and even gets distracted with driving that time of day. Maria Eugenia Damico, DO [address] [facility], [place], [address], [facility] 03/02/2017 19:07:19 04/07/2017 text/html Patient comes in urgently for a 1 week history of nausea vomiting hematemesis and diarrhea. The patient reported to the emergency department on April 01, 2017 and was found to have normal CBC, CMP, lipase and troponin. He responded to a GI cocktail he was sent home with anti nausea medication but ended up returning to the emergency department in [place] as he has had been unable to keep anything down for the last 24 hours And noted coffee ground emesis then streaks of bright red blood following. He denies heavy retching. 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 He has not noticed any black stools or blood in the stools but Hemoccult was positive at the ER visit last night. NG tube suction and did not produce any blood and he was sent home with hydrocodone and anti nausea medication.The patient had an upper endoscopy in November of 2016 showing a small hiatal hernia and mild gastric erythema with normal biopsies. He has remained on Dexilant and the patient reports that his acid reflux has been well controlled until this last week of abdominal pain and vomiting.The patient does not drink alcohol or use marijuana. The patient reports that Zofran and Reglan have not been adequate to control the vomiting and the [place] does not sit well on his stomach. CARMENCITA Hammond-C [address], [address], [facility] 04/07/2017 18:36:26 04/11/2017 text/html 21 y/o M here to day for f/u from recent ER visits for nausea, vomiting, hematemesis. He was able to see GI late last week and he is scheduled for EGD/colonoscopy tomorrow with Dr. Khan. He is feeling a little better today. Epigastric pain has improved. Last vomited yesterday morning. He is doing ok otherwise. He thinks reducing the abilify dose did help some with anxiety. He was able to f/u with his psychiatrist in [place] who agreed with that dosing change and also recommended he start OTC lithium. Colleen thinks that has helped also. He has not had as many recent issues with chest pain. 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 Maria Eugenia Damico DO [address] [place], [address], [facility] 04/11/2017 14:59:34
--- OUTSIDE RECORDS SUMMARY | 2024-04-19 21:41 | XMS_ITS | Encounter Summary ---
Author Organization [facility] Address [address] [place] [address] Phone Care Team Providers Care Railroad Car Letterer Name Role Phone No Pcp Per Patient Primary Care Provider Unavail able Encounter Details Date Type Department Care Team (Late st Contact Info) Description 11/11/2018 Procedure Pass [facility] Diagnostic Imaging at [facility] [address] [place] [address], [address] [place] [phone] Social History Tobacco Use Types Packs/Day Years [...] on filedocumented in this encounter Care Teams Railroad Car Letterer Relationship Specialty Start Date End Date No Pcp Per Patient NO PCP PER PATIENT PCP - General 04/14/19 documented as of this encounter
--- OUTSIDE RECORDS SUMMARY | 2024-04-19 21:41 | XMS_ITS | Encounter Summary ---
Author Organization [facility] Address [address] [place] [address] Phone Care Team Providers Care Stave Block Roller Name Role Phone No Pcp Per Patient Primary Care Provider Unavail able Encounter Details Date Type Department Care Team (Late st Contact Info) Description 11/12/2018 Procedure Pass [facility] Diagnostic Imaging Services at [address] [address] Social History Tobacco Use Types [...] on filedocumented in this encounter Care Teams Stave Block Roller Relationship Specialty Start Date End Date No Pcp Per Patient NO PCP PER PATIENT PCP - General 04/14/19 documented as of this encounter
--- OUTSIDE RECORDS SUMMARY | 2024-04-19 21:41 | XMS_ITS | Continuity of Care Document ---
Author Name [facility] Organization [facility] Care Team Providers Care Wreath And Garland Maker Hand Name Role Phone [facility] Unavailable Unavailable Problems Problem Status Onset Date Classification Date Reported Comments Source Flank pain 02/05/2019 02/06/2019 [facility] Hematuria 02/05/2019 02/06/2019 05 [facility] tist [facility] Depression(Confi rmed) 02/06/[address] [facility] Depression Active 10/03/2023 70 [facility] Medications Medication Details Route Status Patient Instructions Ordering Provider Order Date Source oxyCODONE 5 mg oral tablet = 1 Tab, ORAL, Q6H, PRN PRN for pain, Temporary Technological Failure, X 2 Day(s), # 10 Tab, 0 Refill(s), Acute Active 70 [facility] Flomax 0.4 mg oral capsule = 1 Cap, ORAL, DAILY, # 10 Cap, 0 Refill(s), Maintenance Active 70 [facility] ondansetron 4 mg oral tablet, disintegrating = 1 DT_Tab, ORAL, QID, # 12 Tab, 0 Refill(s), Maintenance [facility] mg oral tablet 0 Refill(s), Maintenance Active [facility] losartan 0 Refill(s), Maintenance Active [facility] Crestor 5 mg oral tablet = 1 Tab, ORAL, DAILY, 0 Refill(s), Maintenance Active 70 [facility] Vyvanse 60 mg oral capsule = 1 Cap, ORAL, QMorning, 0 Refill(s), Maintenance Active 70 [facility] [place] Allergies, Adverse Reactions, Alerts Substance Category Reaction Severity Reaction type Status Date Reported Comments Source penicillins Assertion Drug allergy Active [facility] calcium channel blockers Assertion Drug allergy Active [address] [facility] penicillins Assertion Drug allergy Active 70 [facility] calcium channel blockers Assertion Drug allergy Active 70 [facility] Results Order Name Results Value Reference Range Date Interpretation Comments Source UADwMCSIf UA - Source/Collec t Type Urine Clean Cat 10/02 NA [facility] UADwMCSIf UA - Appearance CLEAR Clear 10/02 NA [facility] UADwMCSIf UA - Color YELLOW 10/02 [facility] UADwMCSIf UA - pH 6.0 10/02 NA [facility] UADwMCSIf UA - Specific [place] 1.020 1.010 - 1.025 10/02 [facility] UADwMCSIf UA - Protein NEGATIVE Negative 10/02 [facility] UADwMCSIf UA - Glucose NEGATIVE Negative 10/02 [facility] UADwMCSIf UA - Ketones NEGATIVE Negative 10/02 [facility] UADwMCSIf UA - Bilirubin NEGATIVE Negative 10/02 [facility] UADwMCSIf UA - Blood LARGE Negative 10/02 * [facility] UADwMCSIf UA - Urobilinogen 0.2 mg/dL 0.1 - 1.0 10/02 [facility] UADwMCSIf UA - Nitrites NEGATIVE Negative 10/02 [facility] UADwMCSIf UA - Leukocyte Esterase NEGATIVE Negative 10/02 [facility] UADwMCSIf UA Micro Y/N Yes 10/02 NA [facility] UADwMCSIf Urine Culture Y/N No 10/02 [facility] UADwMCSIf Sex assigned at Male 10/02 NA [facility] UAMicro* UA - WBC <1 /HPF 0 - 5 10/02 NA Unless otherwise indicated, microscopic evaluation performed at [facility], [address] [place] [address], [place] [address]. [facility] UAMicro* UA - RBC 31-50 /HPF 0 - 2 10/02 * [facility] UAMicro* UA - Bacteria Negative /HPF Negative 10/02 NA [facility] UAMicro* UA - Epithelials, Squamous Few /HPF 10/02 NA [facility] UAMicro* Sex assigned at Male 10/02 NA [facility] AutoDiff* Auto Neutrophil Percent 52.0 % 02/05 [facility] AutoDiff* Auto Neutrophil Absolute 4.4 K/MM3 2.0 - 7.3 02/05 [facility] AutoDiff* Auto Lymphocyte Percent 37.5 % 02/05 [facility] AutoDiff* Auto Lymphocyte Absolute 3.1 K/MM3 0.9 - 4.8 02/05 [facility] AutoDiff* Auto Monocyte Percent 8.3 % 02/05 [facility] AutoDiff* Auto Monocyte Absolute 0.7 K/MM3 0.2 - 1.0 02/05 [facility] AutoDiff* Auto Eosinophil Percent 1.4 % 02/05 [facility] AutoDiff* Auto Eosinophil Absolute 0.1 K/MM3 0.0 - 0.4 02/05 [facility] AutoDiff* Auto Basophil Percent 0.8 % 02/05 [facility] AutoDiff* Auto Basophil Absolute 0.1 K/MM3 0.0 - 0.1 02/05 [facility] CBC WBC 8.4 K/MM3 4.5 - 10.0 02/05 [facility] CBC RBC 4.78 M/MM3 4.40 - 6.00 02/05 [facility] CBC HGB 14.0 G/DL 13.4 - 17.4 02/05 [facility] CBC HCT 41.2 % 38.9 - 51.5 02/05 [facility] CBC MCV 86 uM^3 80 - 100 02/05 [facility] CBC MCH 29.3 pg 26.0 - 34.0 02/05 [facility] CBC MCHC 34.0 ZZ 31.0 - 36.0 02/05 [facility] CBC RDW 14.1 % 11.6 - 14.6 02/05 [facility] CBC PLT 376 K/MM3 150 - 400 02/05 [facility] CBC MPV 7.6 uM^3 7.2 - 11.1 02/05 [facility] CMP Sodium Level 137 mmol/L 136 - 144 02/05 [facility] CMP Potassium Level 3.9 mmol/L 3.6 - 5.1 02/05 [facility] CMP Chloride Level 105 mmol/L 101 - 111 02/05 [facility] CMP CO2/Carbon Dioxide 23 mmol/L 22 - 32 02/05 [facility] CMP Anion Gap 9 mmol/L 5 - 17 02/05 [facility] CMP Glucose, Random 110 MG/DL 74 - 118 02/05 [facility] CMP BUN 15 MG/DL 7 - 25 02/05 [facility] CMP Creatinine 1.0 MG/DL 0.9 - 1.3 02/05 [facility] CMP BUN/Creat Ratio 15.0 02/05 [facility] CMP Osmolality, Calculated 285 mOsm/L 02/05 [facility] CMP Calcium Level 9.4 MG/DL 8.6 - 10.3 02/05 [facility] CMP Total Protein 6.7 G/DL 6.0 - 8.0 02/05 [facility] CMP Albumin Level 4.3 G/DL 3.5 - 5.0 02/05 [facility] CMP Globulin Level 2.4 G/DL 02/05 [facility] CMP A/G Ratio 1.79 1.00 - 2.50 02/05 [facility] CMP ALP 105 Units/L 38 - 126 02/[address] [facility] CMP ALT 52 Units/L 8 - 40 02/[address] [facility] CMP AST 29 Units/L 15 - 41 02/05 [facility] CMP Bilirubin, Total 0.5 MG/DL 0.3 - 1.2 02/05 [facility] CMP GFR - Non 99 mL/min/1. 73m2 >=60 02/05 NA Impaired kidney function is indicated by a GFR of <60 mL/min/1.73m 2. The equation used has not been validated for use with persons over 70 years of age, women, patients with serious co-morbid conditions, or persons with extremes of body size, muscle mass or nutritional status.This equation is not applicable to persons under 18 years of age. [facility] CMP GFR - 120 mL/min/1. 73m2 >=60 02/05 [facility] Lactic Lactic Acid Level 1.3 mmol/L 0.5 - 2.2 02/05 [facility] UACSIf UA - Source/Collec t Type Urine Voided 02/05 [facility] UACSIf UA - Appearance CLEAR Clear 02/05 [facility] UACSIf UA - Color Yellow 02/05 [facility] UAIf UA - pH 5.0 5.0 - 8.0 02/05 [facility] UAIf UA - Specific [place] 1.025 1.005 - 1.035 02/05 [facility] UAIf UA - Protein NEG MG/DL 0 - 10 02/05 [facility] UAIf UA - Glucose NEG Negative 02/05 [facility] UACSIf UA - Ketones NEG Negative 02/05 [facility] UAIf UA - Bilirubin NEG Negative [facility] LG Negative 02/05 * [facility] UAIf UA - Urobilinogen <2.0 MG/DL - <=2.0 02/05 [facility] UACSIf UA - Nitrites NEG Negative 02/05 [facility] UAIf UA - Leukocyte Esterase NEG Negative 02/05 [facility] UAIf Urine Culture Y/N No 02/05 [facility] UAIf UA - WBC <1 /HPF 0 - 4 02/05 [facility] UAIf UA - RBC >200 /HPF 0 - 1 02/[address] [facility] UAIf UA - Bacteria 0 None 02/05 [facility] UAIf UA - Epithelials, Squamous <1 /LPF 02/05 [facility] UAIf UA - Mucus RARE None 02/05 [facility] Consultation Notes Results Value Date Source ED Physician Notes Patient: CASSI KAPLAN Age: 27 years Legal Sex: MALE : 1995 Chief Complaint pt states that he has hx of kidney stones. Had a scan done on the that showed multiple small kidney stones. 800 Ibuprofen and 1000mg tylenol was taken around 1700. Mode of Arrival Walk-In History (History of Present Illness) pt with L flank pain with hx multiple stones, thinks he may have passed one recently, took ibuprofen/tylenol this evening _ Documentation Reviewed: CT report from care everywhere, multiple L stones 1.7 to 2.7 mm, 2.8mm L UPJ stone (thinks he passed this as pain had improved) _ no fever Physical Exam Triage Vital Signs 10/02/23 19:29 T: 98.1 F HR: 83 RR: 16 BP: 133/78 SPO2: 100% O2 Delivery: Room air HT: 175.26 cm WT: 125 kg GEN: wd/wn male in nad EYES: normal conjunctiva NECK: supple ABD: soft, nontender BACK: normal ROM EXT: full ROM NEURO: aox3 no focal deficit ED Course, Data, and Interventions Differential Diagnosis considered ureteral colic, pyelo, muscular. Most c/w recurrent ureteral colic, improving with serial doses of dilaudid, CT from earlier this month reviewed, don't feel indication to repeat. Orders Dilaudid, 0.5 mg, 0.5 mL, IV PUSH, ONCE Dilaudid, 0.5 mg, 0.5 mL, IV PUSH, ONCE Flomax, 0.4 mg, 1 Cap, ORAL, ONCE Zofran, 4 mg, 2 mL, IV PUSH, ONCE Zofran, 4 mg, 2 mL, IV PUSH, ONCE Medical Decision Making Chronic Medical Conditions Impacting Care: BMI 30+ clotting disorder, anticoagulated nephrolithiasis Social Determinants of Health: [facility] with limited specialty coverage _ Labs, Imaging and Medications Considered but not performed/prescribed: CT renal stone, US renal, don't feel clinically indicated, has known disease from recent CT Diagnosis acute L ureteral colic Condition Stable Disposition Discharge to Home Prescriptions Current medications were reviewed and updated. Prescribed Medications 10/02/2023 20:26 PDT oxyCODONE 5 mg oral tablet, = 1 Tab, ORAL, Q6H, PRN PRN for pain, Temporary Technological Failure, X 2 Day(s), # 10 Tab, 0 Refill(s), Acute 10/02/2023 20:25 PDT Flomax 0.4 mg oral capsule, = 1 Cap, ORAL, DAILY, # 10 Cap, 0 Refill(s), Maintenance ondansetron 4 mg oral tablet, disintegrating, = 1 DT_Tab, ORAL, QID, # 12 Tab, 0 Refill(s), Maintenance Patient Education Renal Colic, [id number] Follow-Up Provider: NOT ON FILE DOCTOR Date: Within 1 week MSEI Information MSEI MD/WOOD GANG SAWYER/PA Time Patient Seen face to face: Date and time 10/02/2023 19:31:22 Past Medical History Active Problems Depression Social History *Alcohol Screen How often do you have a drink containing alcohol? 2-3 times a week (3). *Substance Abuse Screen Do you have concerns about substance abuse for yourself or in your household? No. Current or past use? Never. *Tobacco Use Screen Is there a smoker in the household? No. Do you have concerns about tobacco use in household? No. Over the past 30 days, what and how much have you smoked? Never (less than 100 in lifetime). Allergies calcium channel blockers penicillins Home Medications No active home medications Lab Results Last 3 Lab Results Lab UA - Source/Collect Type Urine Clean Cat (10/02/23 19:25 PDT) UA - Color Yellow (10/02/23 19:25 PDT) UA - Appearance Clear (10/02/23 19:25 PDT) UA - Specific [place] 1.020 (10/02/23 19:25 PDT) UA - pH 6.0 (10/02/23 19:25 PDT) UA - Protein Negative (10/02/23 19:25 PDT) UA - Glucose Negative (10/02/23 19:25 PDT) UA - Ketones Negative (10/02/23 19:25 PDT) UA - Bilirubin Negative (10/02/23 19:25 PDT) UA - Blood H Large (10/02/23 19:25 PDT) UA - Urobilinogen 0.2 (10/02/23 19:25 PDT) UA - Nitrites Negative (10/02/23 19:25 PDT) UA - Leukocyte Esterase Negative (10/02/23 19:25 PDT) UA - WBC <1 (10/02/23 19:25 PDT) UA - RBC H 31-50 (10/02/23 19:25 PDT) UA - Epithelials, Squamous Few (10/02/23 19:25 PDT) UA - Bacteria Negative (10/02/23 19:25 PDT) Urine Culture Y/N No (10/02/23 19:25 PDT) independently interpreted by me, hematuria, no UTI [id number] Male 10/03/2023 [facility] ED Physician Notes Patient: CASSI KAPLAN Age: 23 years Sex: MALE : 1995 Chief Complaint Pt presents with left side flank pain that started at 1999 last night. Pt with history of 3 kidney stones 1 month ago and states this feels similar. Pt took 2 aleve and 2 tylenol last evening. No problems urinating. Pt endorses nausea. Mode of Arrival Walk-In History of Present Illness 23-year-old male with history of previous kidney stones who presents with sudden onset left flank pain since approximately 8 PM, which was 5.5 hours ago. Patient endorses hematuria. She denies any dysuria, urgency, or frequency. Pain is constant, moderate to severe in intensity, nonradiating, no specific exacerbating or relieving factors. Patient reports symptoms are consistent with previous kidney stones. Review of Systems Constitutional: no generalized weakness, no fever, no chills, no unintentional weight loss Eyes: no visual changes ENMT: no ear pain, no sore throat, no nasal congestion, no hoarseness Respiratory: no cough, no shortness of breath Cardiovascular: no chest pain, no palpitations, no lower extremity edema Gastrointestinal: no vomiting, no abdominal pain, no changes in bowel movements Genitourinary: no dysuria, with hematuria, no urinary frequency Musculoskeletal: no myalgias, no arthralgias Neurologic: no focal weakness, no numbness, no headaches Heme/Lymph: no bleeding tendency, no bruising tendency, no petechiae, no swollen nodes All other systems are negative. Physical Exam Triage Vital Signs T: 98.4 F HR: 79 RR: 16 BP: 153/62 SPO2: 99% O2 Delivery: Room air HT: 175.26 cm WT: 125 kg(Dose Calc Wt.) WT: 125 kg Constitutional:moderate distress, well appearing, well developed Head: atraumatic, normocephalic, nonasal discharge, moist mucosal membranes Eyes: PERRL, EOMI, normalconjunctiva, normal sclera Neck: trachea midline, no meningismus Cardiovascular: normal rate, regular rhythm, no murmur, no gallops, no cyanosis or pallor, no peripheral edema Respiratory: CTA, no rales, no rhonchi, no wheezing, non-labored respirations, normal air movement in lung mark Gastrointestinal: soft, non-distended, no tenderness to palpation, no guarding, no rebound, left CVA tenderness Extremities: no bony deformity, full ROM of major joints Neurological: oriented x4, awake, CN II-XII intact, motor strength equal and normal bilaterally, upper sensation equal and normal bilaterally, lower sensation equal and normal bilaterally, speech normal Skin: warm, dry, no rashes, no wounds Psychiatric: normal affect, good judgment ED Course Orders Toradol, 60 mg, 2 mL, IM, ONCE, PRN MDM Patient presents initially with complaint of flank pain and reports that he was recently diagnosed with kidney stones. He does have microscopic hematuria noted. He declines any imaging studies tonight. He is given Toradol in triage. Review of available records indicate that the patient is currently taking Xaralto, which is likely the cause of his hematuria. Furthermore, he has several dozen ED visits this year at more than a dozen facilities [facility] (Local visits include [facility] on 12/25, [facility] on 12/22, [facility] on 12/18, [place] on 12/03, [place] 11/20) He had an ultrasound performed approximately one month ago in [facility] which was negative for hydronephrosis. (He had declined CT imaging at that time.) Previous CT imaging from 2018 was negative for obstructing ureteral stone. These findings are reviewed with the patient, who states that he had subsequent CT imaging performed at an outside imaging center, which is not currently available to us. Given the lack of acute findings as well as the patient's extensive presentations to medical care across multiple facilities and systems, no further medications will be administered at this time without objective evidence of acute pathology. Patient will be referred to the on-call urologist for further outpatient evaluation of his hematuria. Return precautions are discussed. Patient alert, ambulatory, in no distress the time he leaves the department. Diagnosis Hematuria (Hematuria, unspecified, R31.9) Condition Stable Disposition Discharge to Home Patient Education Hematuria Follow-Up Provider: Franco Snyder Date: Within 1-2 days Address: The [address] [place] [address]- [facility] (2) MSEI Information MSEI MD/WOOD GANG SAWYER/PA Time Patient Seen face to face: Date and time 02/05/2019 01:42:14 Past Medical History Active Problems Depression Allergies calcium channel blockers penicillins Home Medications No active home medications Social History *Alcohol Screen How often do you have a drink containing alcohol? 2-3 times a week (3). *Substance Abuse Screen Do you have concerns about substance abuse for yourself or in your household? No. Current or past use? Never. *Tobacco Use Screen Is there a smoker in the household? No. Do you have concerns about tobacco use in household? No. Over the past 30 days, what and how much have you smoked? Never (less than 100 in lifetime). Family History Noncontributory Lab Results Labs All 24H Lab Results Date Lactic Acid Level 1.3 mmol/L 02/05/19 01:56 PST GFR - Non 99 mL/min/1.73m2 02/05/19 01:56 PST GFR - 120 mL/min/1.73m2 02/05/19 01:56 PST Auto Neutrophil Percent 52.0 % 12/30/19 01:56 PST Auto Neutrophil Absolute 4.4 K/mm3 02/05/19 01:56 PST Auto Lymphocyte Percent 37.5 % 02/05/19 01:56 PST Auto Lymphocyte Absolute 3.1 K/mm3 02/05/19 01:56 PST Auto Monocyte Percent 8.3 % 02/05/19 01:56 PST Auto Monocyte Absolute 0.7 K/mm3 02/05/19 01:56 PST Auto Basophil Percent 0.8 % 02/05/19 01:56 PST Auto Basophil Absolute 0.1 K/mm3 02/05/19 01:56 PST Auto Eosinophil Percent 1.4 % 02/05/19 01:56 PST Auto Eosinophil Absolute 0.1 K/mm3 02/05/19 01:56 PST Urine Culture Y/N No 02/05/19 01:43 PST WBC 8.4 K/mm3 02/05/19 01:56 PST RBC 4.78 M/mm3 02/05/19 01:56 PST HGB 14.0 gm/dL 02/05/19 01:56 PST HCT 41.2 % 02/05/19 01:56 PST MCV 86 fL 02/05/19 01:56 PST MCH 29.3 pg 02/05/19 01:56 PST MCHC 34.0 g/dL (calc) 02/05/19 01:56 PST RDW 14.1 % 02/05/19 01:56 PST PLT 376 K/mm3 02/05/19 01:56 PST MPV 7.6 fL 02/05/19 01:56 PST Sodium Level 137 mmol/L 02/05/19 01:56 PST Potassium Level 3.9 mmol/L 02/05/19 01:56 PST Chloride Level 105 mmol/L 02/05/19 01:56 PST CO2/Carbon Dioxide 23 mmol/L 02/05/19 01:56 PST Anion Gap 9 mmol/L 02/05/19 01:56 PST Glucose, Random 110 mg/dL 02/05/19 01:56 PST BUN 15 mg/dL 02/05/19 01:56 PST Creatinine 1.0 mg/dL 02/05/19 01:56 PST BUN/Creat Ratio 15.0 02/05/19 01:56 PST Osmolality, Calculated 285 mOsm/L 02/05/19 01:56 PST Calcium Level 9.4 mg/dL 02/05/19 01:56 PST Total Protein 6.7 gm/dL 02/05/19 01:56 PST Albumin Level 4.3 gm/dL 02/05/19 01:56 PST Globulin Level 2.4 gm/dL 02/05/19 01:56 PST A/G Ratio 1.79 - 02/05/19 01:56 PST Bilirubin, Total 0.5 mg/dL 02/05/19 01:56 PST AST 29 units/L 02/05/19 01:56 PST ALT 52 units/L (HIGH) 02/05/19 01:56 PST ALP 105 units/L 02/05/19 01:56 PST UA - Source/Collect Type Urine Voided 02/05/19 01:43 PST UA - Color Yellow 02/05/19 01:43 PST UA - Appearance Clear 02/05/19 01:43 PST UA - Specific [place] 1.025 - 02/05/19 01:43 PST UA - pH 5.0 02/05/19 01:43 PST UA - Protein Negative mg/dL 02/05/19 01:43 PST UA - Glucose Negative 02/05/19 01:43 PST UA - Ketones Negative 02/05/19 01:43 PST UA - Bilirubin Negative 02/05/19 01:43 PST UA - Blood Large (ABNORMAL) 02/05/19 01:43 PST UA - Urobilinogen <2.0 mg/dL 02/05/19 01:43 PST UA - Nitrites Negative 02/05/19 01:43 PST UA - Leukocyte Esterase Negative 02/05/19 01:43 PST UA - WBC <1 /HPF 02/05/19 01:43 PST UA - RBC >200 /HPF (HIGH) 02/05/19 01:43 PST UA - Epithelials, Squamous <1 /LPF 02/05/19 01:43 PST UA - Bacteria None 02/05/19 01:43 PST UA - Mucus Rare 02/05/19 01:43 PST 02/05/[address] [facility] Vital Signs Vital Sign Value Date Comments Source Peripheral Pulse Rate 77 bpm 10/03/2023 70 [facility] Respiratory rate 16 br/min 10/03/2023 70 [facility] Pulse Oximetry 97 % 10/03/[address] [facility] [place] Systolic BP 107 mm[Hg] 10/03/2023 70 [facility] [place] Diastolic BP 62 mm[Hg] 10/03/2023 70 [facility] [place] Respiratory rate 16 br/min 10/03/2023 [facility] [place] Systolic BP 108 mm[Hg] 10/03/2023 70 [facility] [place] Diastolic BP 71 mm[Hg] 10/03/2023 70 [facility] [place] Peripheral Pulse Rate 74 bpm 10/03/2023 70 [facility] [place] Pulse Oximetry 100 % 10/03/2023 70 [facility] [place] Temperature (F) 98.1 [degF] 10/03/2023 70 [facility] [place] Peripheral Pulse Rate 83 bpm 10/03/2023 70 [facility] [place] Respiratory rate 16 br/min 10/03/2023 [facility] [place] Systolic BP 133 mm[Hg] 10/03/2023 70 [facility] [place] Diastolic BP 78 mm[Hg] 10/03/2023 70 [facility] [place] Pulse Oximetry 100 % 10/03/2023 70 [facility] Mean BP 78 mm[Hg] 02/05/2019 05 [facility] Pulse Oximetry 100 % 02/05/2019 05 [facility] Oxygen delivery Room air (02/05/19 2:16 AM) 02/05/[address] [facility] Systolic BP 123 mm[Hg] 02/05/[address] [facility] Diastolic BP 66 mm[Hg] 02/05/[address] [facility] Pulse rate 71 bpm 02/05/2019 05 [facility] Respiratory rate 16 br/min 02/05/2019 05 [facility] Mean BP 89 mm[Hg] 02/05/2019 05 [facility] Pulse Oximetry 99 % 02/05/2019 05 [facility] Oxygen delivery Room air (02/05/19 1:58 AM) 02/05/[address] [facility] Systolic BP 127 mm[Hg] 02/05/[address] [facility] Diastolic BP 78 mm[Hg] 02/05/[address] [facility] Pulse rate 77 bpm 02/05/2019 05 [facility] Respiratory rate 16 br/min 02/05/2019 05 [facility] Temperature (F) 98.4 [degF] 02/05/2019 05 [facility] Pulse rate 79 bpm 02/05/2019 05 [facility] Respiratory rate 16 br/min 02/05/2019 05 [facility] Pulse Oximetry 99 % 02/05/2019 05 [facility] Systolic BP 153 mm[Hg] 02/05/[address] [facility] Diastolic BP 62 mm[Hg] 02/05/[address] [facility] BP site Right arm (02/05/19 1:38 AM) 02/05/[address] [facility] Weight (kg) 125 kg 02/05/[address] [facility] Weight measured method Estimated ( 1:38 AM) 02/05/[address] [facility] Dose calculation weight (kg) 125 kg 02/05/2019 05 [facility] Encounters Location Location Details Encounter Type Encounter Number Reason For Visit Attending Provider ADM Date DC Date Status Source 05 05 [facility] Emergency [id number] LT FLANK PAIN Rudi Stringer 02/[address] [facility] [address] [facility] Emergency [id number] LEFT FLANK PAIN Eyad Cabrera MD 10/02 Active [facility] Procedures Procedure Code Date Perfomer Comments Source ROUTINE VENIPUNCTURE [id number] 02/05/[address] [facility] Social [facility] [place] Social History Date Source Social History TypeResponse Smoking Status Is there a smoker in the household? No; *Do you have concerns about tobacco use in household? No; Never (less than 100 in lifetime) entered on: 02/05/19 Sex Male [facility] Social [facility] TypeResponse Smoking Status Is there a smoker in the household? No; *Do you have concerns about tobacco use in household? No; Never (less than 100 in lifetime) entered on: 02/05/19 02/05/[address] [facility] Social History TypeResponse Smoking Status Is there a smoker in the household? No; *Do you have concerns about tobacco use in household? No; Never (less than 100 in lifetime) entered on: 02/05/19 Sex Male [facility]
--- OUTSIDE RECORDS SUMMARY | 2024-04-19 21:41 | XMS_ITS | Encounter Summary ---
Author Organization [facility] Address [address] [place] [address] Phone Care Team Providers Care Multifocal Button Inspector Name Role Phone No Pcp Per Patient Primary Care Provider Unavail able Encounter Details Date Type Department Care Team (Late st Contact Info) Description 12/03/2018 Intake Transfer Center [address] [place] [address] Social History Tobacco Use Types Packs/Day Years [...] on filedocumented in this encounter Care Teams Multifocal Button Inspector Relationship Specialty Start Date End Date No Pcp Per Patient NO PCP PER PATIENT PCP - General 04/14/19 documented as of this encounter
--- OUTSIDE RECORDS SUMMARY | 2024-04-19 21:41 | XMS_ITS | Clinical Summary ---
Author Organization [facility] Address [address] [place] [address] Care Team Providers Care Inventory Control Supervisor Name Role Phone Unavailable Primary Care Provider Unavailabl e Social History Tobacco Use Types Packs/Day Years Used Date Smoking Tobacco: Never Assessed Sex and Gender Information Value Date Recorded Sex Assigned at Not on file Legal Sex Male 8:40 PM PST Gender Identity Not on file Sexual Orientation Not on file Plan of Treatment Not on file
--- OUTSIDE RECORDS SUMMARY | 2024-04-19 21:42 | XMS_ITS | Encounter Summary ---
Author Organization [facility] Address [address] [place] [address] Phone Care Team Providers Care Renewals Manager Name Role Phone No Pcp Per Patient Primary Care Provider Unavail able Encounter Details Date Type Department Care Team (Late st Contact Info) Description 10/17/2018 Procedure Pass [facility] [address] [place] [address], [address] [place] [phone] Social History Tobacco Use Types Packs/Day Years Used Date Smoking Tobacco: Never Smokeless Tobacco: Never Alcohol Use Standard Drinks/Week Comments Yes 0 (1 standard drink = 0.6 oz pur e alcohol) 1-2 drinks every two weeks Sex and Gender Information [...] on filedocumented in this encounter Care Teams Renewals Manager Relationship Specialty Start Date End Date No Pcp Per Patient NO PCP PER PATIENT PCP - General 04/14/19 documented as of this encounter
--- OUTSIDE RECORDS SUMMARY | 2024-04-19 21:42 | XMS_ITS | Data Portability ---
Author Organization ID - [facility], [employer] - [facility] Address [address] [place] [id number] Assessment No assessment recorded. Plan of Treatment Reminders Order Date Submit Date Provider Last Modified By Organization Details Last Modified Time Details Appointments None recorded. Lab CBC w/ diff 2017 018 [facility] 1, [address], [place], [id number], 8 09:26:01 lipid panel, serum 2017 018 [facility] 1, [address], [place], [id number], 8 09:05:03 PSA, total + free, serum or plasma 2017 018 [facility] 1, [address], [place], [id number], 8 09:10:01 testostero ne, free + total, w/ shbg, serum 2017 018 [facility] 1, [address], [place], [id number], 8 10:09:02 dhea-sulfa te, serum 2017 018 [facility] 1, [address], [place], [id number], 8 10:09:01 estradiol, serum 2017 018 [facility], [address], [address], [place], [id number], 8 11:15:02 Referral None recorded. Procedures None recorded. Surgeries None recorded. Imaging None recorded. Medication Orders diltiazem 30 mg tablet 2017 018 INTERFACE [facility], [address], [place], [id number], 8 12:42:42 Patient TargetsNo targets recorded. Patient Instructions Encounter Date Encounter Id Patient Instructions Last Modified By Organization Details Last Modified Time 07/12/2017 [id number] angina: care instructions [email or web address] Not available 07/12/2017 12:42:40 elevated blood pressure: care instructions [email or web address] Not available 07/12/2017 12:42:39 hypogonadism: care instructions [email or web address] Not available 07/12/2017 12:42:39 high cholesterol : care instructions [email or web address] Not available 07/12/2017 12:42:40 dash diet: care instructions [email or web address] Not available 07/12/2017 12:42:39 Coordination of Care/Counseling re: Conditions and Treatment options; Discussed with patient > 50% of time for 45+ minutes [email or web address] Not available 07/12/2017 12:41:52 Reason for Referral None Reported. Results Created Date Observation Date Name Description Value Unit Range Abnormal Flag Note LastModifiedBy Organization Detail LastModifiedTime 07/13/19 18 07/12/2017 lipid panel , serum cholesterol 148 mg/dL opt: <200 Not Available [facility] [place] [address], [place], [address], 07/13/2017 09:05:03 07/13/19 18 07/12/2017 lipid panel , serum triglyceride s 124 mg/dL 30-150 Not Available [facility] [place] [address], [place], [address], 07/13/2017 09:05:03 07/13/19 18 07/12/2017 lipid panel , serum HDL 41.8 mg/dL opt: >40 Not Available [facility] [place] [facility], [place], [address], 07/13/2017 09:05:03 07/13/19 18 07/12/2017 lipid panel , serum LDL 81 mg/dL opt: <100 Not Available [facility] [place] [facility], [place], [address], 07/13/2017 09:05:03 07/13/19 18 07/12/2017 lipid panel , serum VLDL 25 mg/dL 4-40 Not Available [facility] [place] [facility], [place], [address], 07/13/2017 09:05:03 07/13/19 18 07/12/2017 lipid panel , serum chol/HDL 3.5 opt: <4.97 Not Available [facility] [place] [facility], [place], [address], 07/13/2017 09:05:03 07/13/19 18 07/12/2017 lipid panel , serum non-HDL chol 106 mg/dL opt: <130 Not Available [facility] [place] [facility], [place], [address], 07/13/2017 09:05:03 07/13/19 18 07/12/2017 PSA, total + free, serum or plasm a PSA, total 0.191 NG/mL 0.0-4. 0 Not Available [facility] [place] [facility], [place], [address], 07/13/2017 09:10:01 07/13/19 18 07/12/2017 PSA, total + free, serum or plasm a free PSA 0.061 NG/mL Not Available [facility] [place] [facility], [place], [address], 07/13/2017 09:10:01 07/13/19 18 07/12/2017 PSA, total + free, serum or plasm a % free PSA 32 % >16 Not Available [facility] [place] [address], [place], [address], 07/13/2017 09:10:01 07/13/19 18 07/12/2017 CBC w/ diff WBC 7.0 K/uL 4.5-11 .0 Not Available [facility] [place] [facility], [place], [address], 07/13/2017 09:26:01 07/13/19 18 07/12/2017 CBC w/ diff RBC 6.17 M/uL 4.3-5. 7 high Not Available [facility] [place] [address], [place], [address], 07/13/2017 09:26:01 07/13/19 18 07/12/2017 CBC w/ diff hemoglobin 18.1 g/dL 13.5-1 8.0 high Not Available [facility] [place] [address], [place], [address], 07/13/2017 09:26:01 07/13/19 18 07/12/2017 CBC w/ diff hematocrit 54.3 % 41-50 high Not Available [facility] [place] [address], [place], [address], 07/13/2017 09:26:01 07/13/19 18 07/12/2017 CBC w/ diff MCV 87.5 fL 81-99 Not Available [facility] [place] [address], [place], [address], 07/13/2017 09:26:01 07/13/19 18 07/12/2017 CBC w/ diff RDW 15.8 % 10.5-1 5.0 high Not Available [facility] [place] [address], [place], [address], 07/13/2017 09:26:01 07/13/19 18 07/12/2017 CBC w/ diff MCH 29 pg 27-33 Not Available [facility] [place] [address], [place], [address], 07/13/2017 09:26:01 07/13/19 18 07/12/2017 CBC w/ diff MCHC 33 g/dL 30-36 Not Available [facility] [place] [address], [place], [address], 07/13/2017 09:26:07/13/19 18 07/12/2017 CBC w/ diff platelet count 238 K/uL 140-44 0 Not Available [facility] [place] [address], [place], [address], 07/13/2017 09:26:01 07/13/19 18 07/12/2017 CBC w/ diff neutrophils 66.2 % 39-80 Not Available [facility] [place] [address], [place], [address], 07/13/2017 09:26:01 07/13/19 18 07/12/2017 CBC w/ diff lymphocytes 24.9 % 24-44 Not Available [facility] [place] [address], [place], [address], 07/13/2017 09:26:01 07/13/19 18 07/12/2017 CBC w/ diff monocytes 6.6 % 0-12 Not Available [facility] [place] [address], [place], [address], 07/13/2017 09:26:01 07/13/19 18 07/12/2017 CBC w/ diff eosinophils 1.7 % 0-6 Not Available [facility] [place] [address], [place], [address], 07/13/2017 09:26:01 07/13/19 18 07/12/2017 CBC w/ diff basophils 0.9 % 0-2 Not Available [facility] [place] [address], [place], [address], 07/13/2017 09:26:07/13/19 18 07/12/2017 CBC w/ diff neut, absolute 4.63 K/uL 2.0-6. 9 Not Available [facility] [place] [facility], [place], [address], 07/13/2017 09:26:07/13/19 18 07/12/2017 CBC w/ diff band, absolute 0.00 K/uL 0.0-0. 6 Not Available [facility] [place] [facility], [place], [address], 07/13/2017 09:26:01 07/13/19 18 07/12/2017 CBC w/ diff lymph, absolute 1.74 K/uL 0.6-3. 4 Not Available [facility] [place] [facility], [place], [address], 07/13/2017 09:26:01 07/13/19 18 07/12/2017 CBC w/ diff mono, absolute 0.46 K/uL 0.0-1. 1 Not Available [facility] [place] [facility], [place], [address], 07/13/2017 09:26:01 07/13/19 18 07/12/2017 CBC w/ diff eos, absolute 0.12 K/uL 0.0-0. 7 Not Available [facility] [place] [address], [place], [address], 07/13/2017 09:26:01 07/13/19 18 07/12/2017 CBC w/ diff baso, absolute 0.06 K/uL 0.0-0. 2 Not Available [facility] [place] [address] [place] [address] [address], [place], [address], 07/13/2017 09:26:01 07/13/19 18 07/12/2017 CBC w/ diff other, absolute 0.00 0.0 Not Available [facility] [place] [facility], [place], [address], 07/13/2017 09:26:01 07/13/19 18 07/12/2017 dhea- sulfa te, serum DHEA-sulfate 93.20 ug/dL 70.2-4 92 Not Available [facility] - [address], [place], [address], 07/13/2017 10:09:01 07/13/19 18 07/12/2017 testo stero ne, free + total , serum testosterone 407.0 NG/dL 238-10 48 Not Available [facility] - [address], [place], [address], 07/13/2017 10:09:02 07/13/19 18 07/12/2017 testo stero ne, free + total , serum free testosterone 9.43 NG/dL 4.7-24 .4 Not Available [facility] - [address], [place], [address], 07/13/2017 10:09:02 07/13/19 18 07/12/2017 testo stero ne, free + total , serum %free testo 2.3 % 1.6-2. 9 Not Available [facility] [place] [address], [place], [address], 07/13/2017 10:09:02 07/13/19 18 07/12/2017 testo stero ne, free + total , serum sex Hb globulin 22.81 nmol/ L 10-80 Not Available [facility] [place] [facility], [place], [address], 07/13/2017 10:09:02 07/13/19 18 07/12/2017 testo stero ne, free + total , serum albumin 4.8 g/dL 3.5-5. 0 Not Available [facility] [place] [address], [place], [address], 07/13/2017 10:09:02 07/13/19 18 07/12/2017 estra diol, serum estradiol <25.0 pg/mL 27.1-5 2.2 Not Available [facility] [place] [address], [place], [address], 07/13/2017 11:15:02 07/13/19 18 07/09/2017 elect vaishali diogr am No observ ation record ed. [email or web address] Not Available 2017 12:13:10 07/13/19 18 07/09/2017 XR, chest , 2 view No observ ation record ed. [email or web address] Not Available 2017 12:13:09 Result Notes None recorded. Problems Name Problem SNOMED Code Status Onset Date Resolution Date Notes Provider Name and Address Organization Details Recorded Time Obstructi ve sleep apnea syndrome 43614530 Active 2017 KATE Mcdaniels, [facility] 8 10:52:20 Obesity 854030765 Active 2017 KATE Mcdaniels, [facility] 8 10:52:35 Body mass index 30+ - obesity 201637028 Active 2017 bmi 37.4 KATE Mcdaniels null, [facility] 8 11:35:57 Large prostate 985734246 Completed 201707/13/2017 Delmi Hurd LADDERMAN-C null, [facility] 8 17:16:47 Hypospadi as 075826198 Active 2017 KATE Mcdaniels, [facility] 8 10:55:03 History of congenita l hypospadi as 611606413610 102 Active 2017 KATE Mcdaniels null, [facility] 8 10:55:14 Vitamin D deficienc y 99609015 Active 2017 KATE Mcdaniels null, [facility] 8 10:55:25 Undiffere ntiated attention deficit disorder 34717233 Active 2017 KATE Mcdaniels null, [facility] 8 10:55:35 Abnormal liver function 14302632 Completed 201707/13/2017 Delmi Hurd LADDERMAN-C null, [facility] 8 17:15:57 Gastroeso phageal reflux disease 096915494 Active 2017 KATE Mcdaniels null, [facility] 8 10:56:26 Hyperlipi demia 04040761 Active 2017 KATE Mcdaniels null, [facility] 8 10:56:35 Adhesive capsuliti s of left shoulder 742452731983 107 Active 2017 KATE Mcdaniels null, [facility] 8 10:56:45 Allergic rhinitis 24301224 Active 2017 KATE Mcdaniels null, [facility] 8 10:56:53 Anterior chest wall pain 041517370 Completed 201707/13/2017 Delmi Hurd LADDERMAN-C null, [facility] 8 17:16:17 Anxiety 21016971 Completed 201707/13/2017 Delmi Hurd [employer]AD[employer]-C null, [facility] 8 17:17:05 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 875045582 Active 2017 KATE Mcdaniels null, [facility] 8 10:57:27 Asthma 120310833 Completed 201707/13/2017 Delmi Hurd LADDERMAN-C null, [facility] 8 17:16:26 Bipolar disorder 35778056 Active 2017 KATE Mcdaniels null, [facility] 8 10:57:54 Closed traumatic 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 avicular joint 829911972 Completed 201707/13/2017 Delmi Hurd LADDERMAN-C null, [facility] 8 17:16:33 Hiatal hernia with gastroeso phageal reflux 103900470 Active 2017 KATE Mcdaniels null, [facility] 8 10:58:30 History of non-ST segment elevation myocardia l infarctio n 613104780 Active 2017 KATE Mcdaniels null, [facility] 8 10:58:43 Male hypogonad ism 08206304 Active 2017 KATE Mcdaniels null, [facility] 8 10:58:53 Hypertens irais disorder 83580549 Active 2017 KATE Mcdaniels null, [facility] 8 10:58:57 Irritable bowel syndrome 14261130 Completed 201707/12/2017 KATE Mcdaniels null, [facility] 8 11:36:01 Mixed urinary incontine nce 343454724 Active 2017 KATE Mcdaniels null, [facility] 8 10:59:11 Acquired curvature of spine 25977408 Active 2017 KATE Mcdaniels null, [facility] 8 10:59:38 Recurrent urinary tract infection 680702307 Active 2017 KATE Mcdaniels null, [facility] 8 10:59:48 Irritable bowel syndrome 56937522 Active 2017 KATE Mcdaniels null, [facility] 8 11:36:01 Tachycard ia 9449248 Active 2017 [facility]арина [facility] 12:15[facility]36 Angina pectoris 232049563 Active 2017 [facility] 12:15:59 Problem Notes None recorded. Procedures Surgical History Date Name Laterality Status Provider Name and Address Organization Details Recorded Time 02/07/19 17 Unlisted px cardiac surgery completed KATE Mcdaniels [facility] 07/12/2017 11:38:07 02/07/19 16 Cholecystectomy completed KATE Mcdaniels [facility] 07/12/2017 11:37:43 02/07/19 13 Other completed Mary Espana Jack [facility] 07/12/2017 11:37:36 02/07/18 98 Other completed Mary Espana Jack [facility] 07/12/2017 11:37:15 Imaging Results Imaging Date Name Status LastModified by Organization Details LastModified Time 07/09/2017 electrocardiogram completed Informa tion not available 07/12/2017 12:13:10 07/09/2017 XR, chest, 2 view completed Informa tion not available 07/12/2017 12:13:09 Procedure Notes None recorded. Medical Equipment None Reported. Allergies Allergen ID Allergen Name Allergen Category Reaction Reaction Severity Criticality Documentation Date Start Date Code Code System Note Provider Name and Address Organization Details Recorded Time 80639 Product containin g penicilli n (product) medicatio n hives severe Not available 07/12/2017 80239 8001 [facility] 8 11:28:59 91099 mirtazapi ne medicatio n acosta-j ohnson syndrome severe Not available 07/12/2017 56499 [facility] 8 11:29:24 40471 Inderal medicatio n decreased blood pressure moderate Not available 07/13/2017 25468 0 RxNorm Delmi Hurd LADDERMAN-C null, [place] - [facility] 8 17:18:01 Medications Name Sig Start Date Stop Date Status Note LastModified by Organization Details LastModified Time anastrozo le 1 mg tablet TK 1 TABLET PO ONCE WEEKLY active Not Available Not Available No t Available atorvasta tin 80 mg tablet take 1 tablet daily for high choleste rol active Not Available Not Available No t Available metoprolo l succinate ER 50 mg tablet,ex tended release 24 hr take 1 tablet daily for elevated blood pressure (Pt has not started THIS dose) 07/12 completed Not Available Not Available Not Available metoprolo l succinate ER 100 mg tablet,ex tended release 24 hr take 1 tablet daily for high blood pressure active Not Available Not Available No t Available diltiazem 120 mg tablet take 1 tablet daily for high blood pressure / tachycar marcia 07/12 completed extreme fatigue daily use Not Available Not Available Not Available dextroamp hetamine- amphetami ne ER 20 mg 24hr capsule,e xtend release Take 1 capsule every day by oral route in the morning ADD active Not Available Not Available No t Available pantopraz ole 40 mg tablet,de layed release take 1 tablet daily for GERD active Not Available Not Available No t Available nitroglyc [place] 0.4 mg sublingua l tablet PLACE 1 TABLET (0.4 MG) BY SUBLINGU AL ROUTE EVERY 5 MINUTES NEEDEDFO R CHEST PAIN. DO NOT EXCEED 3 DOSES IN 15 MINUTES. active Not Available Not Available No t Available diltiazem 30 mg tablet take 1 tablet by mouth every 6 hrs as needed for tachycar marcia & esophage al spasm 2017 active Not Available Not Available Not Avai lable lamotrigi ne 100 mg tablet take 1 tablet daily for bipolar/ depressi on active Not Available Not Available No t Available Asprin Ec Low Dose 81 mg tablet,de layed release take 1 tablet daily active Not Available Not Available No t Available aripipraz ole 15 mg tablet Take 15 mg by mouth Daily for bipolar/ depressi on active Not Available Not Available No t Available Vitamin D3 2,000 unit Cap Take 1 by mouth daily active Not Available Not Available No t Available Voltaren 1 % topical gel Apply 2 g topicall y 4 (four) times daily 07/12 completed Not Available Not Available Not Available testoster one 20.25 mg/1.25 gram per pump act.(1.62 %) transderm al gel apply 2 pumps on bilatera l shoulder s daily as directed - total of 4 pumps active Not Available Not Available No t Available Vitals Date Recorded Body height Body mass index (BMI) Body weight Body temperature Heart rate Oxygen saturation Oxygen saturation in Arterial blood by Pulse oximetry Respiratory rate Systolic blood pressure Diastolic blood pressure Provider Name and Address Organization Details Last Updated DateTime 8 169.93 cm 37.4 kg/m2 378214. 98 g 98.1 [degF] 113 /min 98 % 98 % 16 /min 124 mm[Hg] 86 mm[Hg] KATE Mcdaniels [place] - [facility] 8 11:40:16 Social History Question Answer Notes LastModified by [employer] Details LastModified Time Tobacco Smoking Status Never [facility]oker Not Available [facility] 12/11/2019 04:04:39 Do You Have An Advance Directive? No [id number] Information n ot available 12/11/2019 How Much Tobacco Do You Chew? None [id number] Information not available 12/11/2019 Concerns About Meeting Basic Needs (food, Housing, Heat, Etc)? No [email or web address] Information not available 07/12/2017 Are You Deaf Or Do You Have Serious Difficulty Hearing? No [id number] Information not available 12/11/2019 Which Illicit Or Recreational Drugs Have You Used? None [id number] Information not available 12/11/2019 How Many Days In The Past Year Have You Had A Heavy Drinking Consumption (4+ Female, 5+ Male)? 0 [email or web address] Information no t available 07/12/2017 Legally Blind In One Or Both Eyes? No [email or web address] Information no t available 07/12/2017 What Was The Date Of Your Most Recent Tobacco Screening? 07/12/2017 [id number] Information not available 12/11/2019 How Much Tobacco Do You Smoke? No [id number] Information not available 12/11/2019 How Many Years Have You Smoked Tobacco? 0 [id number] Information not available 12/11/2019 Sex: Unknown Functional Status Question Answer Note LastModified by [employer] NetworksizF?rsat Bu F?rsat Details LastModified Time Do you have transportation difficulties? No [id number] Information not available 12/11/2019 Urinary incontinence assessment performed? No [email or web address] Information not available 07/12/2017 Are you able to walk? YESWOREST [id number] Information not available 12/11/2019 Are you able to care for yourself? Yes [id number] Information not available 12/11/2019 Mental Status None recorded. Family History Relationship Description Onset Age of this Age Resolved Age Notes LastModified by Organization Details LastModified Time Mother Diabetes mellitus [email or web address] Not available 2017 11:36:11 Medical History No medical history recorded. Immunizations Vaccine Type Date Status Note Provider Nam e and Address Organization Details Recorded Time meningococcal, unknown serogroups 6 completed KATE Mcdaniels, [facility] 07/11/2017 18:30:30 influenza, unspecified formulation 6 completed KATE Mcdaniels null, [facility] 07/11/2017 18:30:41 influenza, unspecified formulation 7 completed KATE Mcdaniels null, [facility] 07/12/2017 11:34:15 Tdap 8 completed KATE Mcdaniels, [facility] 07/12/2017 11:34:31 pneumococcal polysaccharide PPV23 7 completed KATE Mcdaniels, [facility] 07/12/2017 11:34:54 Past Encounters Encounter ID Performer Location Encounter Start Date Encounter Closed Date Diagnosis/Indication Diagnosis SNOMED-CT Code Diagnosis ICD10 Code Diagnosis Note [id number] Delmi Hurd LADDERMAN-C [facility] [address] [place] [id number] 07/12/2017 11:13:28 07/12/2017 13:59:02 Hyperlipidemia 24849292 E78.2 Est, ? statusCont atorvastat in 80Cont daily reg exerciseAd d DASH dietReq add lipid Arterioscl erosis of autologous vein coronary artery bypass graft 834215790 I25.810 H/o ~1 yrNSTEMICo nt ASA 81 qdCont BB ER 100 qdAdd CCB 30 q6h PRN spasm, tachycardi aCont NTG 0.4 SL PRN spasmAdd DASH diet Hypertensive disorder 38 190698 I10 Est, ? statusAdd DASH dietAdd back home logsCont metoprolol ER 100 History of non-ST segment elevation myocardial infarction 420495850 I25.2 H/o ~1 yr NSTEMI Cont ASA 81 qd Cont BB ER 100 qd Add CCB 30 q6h PRN spasm, tachycardi a Cont NTG 0.4 SL PRN spasm Add DASH diet Angina pectoris 38675391 0 I20.1 Est, babb controlEpi sode ~ 2 x wkly NSTEMI, coronary artery spasm ~1 yr Cont ASA 81 qd Cont metoprolol ER 100 qd Cont NTG 0.4 SL q 5 min x 3, no relief go to ERDC diltiazem 120 qd-ADR prev CCB qd extreme fatigue/so mnolenceAd d diltiazem 30 q6h PRN spasm, tachycardi a Tachycardia 8462975 R00. 0 Est, babb control Episode ~ 2 x wkly NSTEMI, coronary artery spasm ~1 yr Cont ASA 81 qd Cont metoprolol ER 100 qd Cont NTG 0.4 SL q 5 min x 3, no relief go to ER DC diltiazem 120 qd-ADR prev CCB qd extreme fatigue/so mnolence Add diltiazem 30 q6h PRN spasm, tachycardi a Male hypogonadism 372832 06 E29.1 Est, ? statusWant s to transfer care PCPNeed screening labsCBClip idsPSAtest osterone, total & freeEstrad iol levelDHEA Health Concerns Section Related Observation LastModified by Organization Detai ls LastModified Time None Recorded Concern Status LastModified by Organization Details LastModified Time None Recorded Advance Directives Directive N: Payers Encounter Date Sequence Insurance Name Policy Number Policy Delaney Covered Member ID Delaney Member ID Guarantor Name 07/12/2017 1 [employer] [place] [id number] Cedric Parra [id number] Cedric Parra Notes Date Note Type Note Provider Name and Address Organization Details Recorded Time 07/12/2017 text/html Generic HPI TemplateReported bypatient.Notes:Est care- NSTEMI- ~ 1 yr ago. Pt currently taking ASA 81 qd, Metoprolol ER 100, atorvastatin 80. NTG PRN coronary artery spasm. Recent new SL cards eval. Pt reports BB decr to ER 50, added CCB 120. Pt reports prev CCB qd ADR extreme fatigue/somnolence. Req maintain prev BB 100, add CCB pocket pill PRN spasm, tachycardia. Pt is planning to re-est care w prev cards ([place]) w new ins coverage becomes effective. Tachycardia-~ 1 yr ago. Pt currently taking ASA 81 qd, Metoprolol ER 100, atorvastatin 80. NTG PRN coronary artery spasm. Recent new SL cards eval. Pt reports BB decr to ER 50, added CCB 120. Pt reports prev CCB qd ADR extreme fatigue/somnolence. Req maintain prev BB 100, add CCB pocket pill PRN spasm, tachycardia. Pt is planning to re-est care w prev cards ([place]) w new ins coverage becomes effective. Coronary artery spasm/angina-~ 1 yr ago. Pt currently taking ASA 81 qd, Metoprolol ER 100, atorvastatin 80. NTG PRN coronary artery spasm. Recent new SL cards eval. Pt reports BB decr to ER 50, added CCB 120. Pt reports prev CCB qd ADR extreme fatigue/somnolence. Req maintain prev BB 100, add CCB pocket pill PRN spasm, tachycardia. Pt is planning to re-est care w prev cards ([place]) w new ins coverage becomes effective. HLP-mixed; no FHx. Pt reports taking atorvastatin 80 qd, denies ADRs. Would like reassess today for testosterone monitoring. Hypogonadism-pt currently using testosterone gel. Pt reports estradiol levels have been elevated w test gel, currently taking anastrozole. Pt req transfer of mgmt to PCP. Req starting test inj, w reassess labs today. Delmi TSE-Inocente null, ID - [facility] [place] 07/12/2017 13:52:44
--- OUTSIDE RECORDS SUMMARY | 2024-04-19 21:42 | XMS_ITS | Clinical Summary ---
Author Organization [facility] Address [address] [place] [address] Care Team Providers Care Vat Cleaner Name Role Phone [id number] Primary Care Provider Unavailab le Source Comments NOTE: The information displayed by Care Everywhere is extracted from the complete medical record and may not identify all current or past patient conditions. See below for further instructions regarding Substance Use Disorder patients.[facility] Medications Medication Sig Dispensed Refills Start Date End Date Status HYDROcodone-Acetam inophen (NORCO) 5-325 mg Oral TabIndications:FLA NK PAIN,URETERAL CALCULUS Take 1 tablet by mouth every 6 hours as needed for pain 20 tablet 03/13/2024 Active Tamsulosin (FLOMAX) 0.4 mg Oral CapIndications:FLA NK PAIN Take 1 capsule by mouth daily for passing kidney stones 30 capsule 03/25/2024 05/24/2024 Active Ondansetron (ZOFRAN ODT) 8 mg Oral Rap Dis TabIndications:FLA NK PAIN Dissolve 1 tablet by mouth every 8 hours as needed for nausea or vomiting 12 tablet 03/25/2024 04/24/2024 Active oxyCODONE IR (ROXICODONE) 5 mg Oral TabIndications:FLA NK PAIN Take 1 tablet by mouth every 6 hours as needed for pain 10 tablet 03/25/2024 04/24/2024 Active Ondansetron (ZOFRAN ODT) 8 mg Oral Rap Dis TabIndications:FLA NK PAIN,URETERAL CALCULUS Dissolve 1 tablet by mouth every 8 hours as needed for nausea or vomiting 12 tablet 03/13/2024 04/12/2024 Encounters Date Type Department Care Team Description 04/15/2024 2:42 PM PDT - 04/15/2024 7:13 PM PDT [facility] [address] [place] [address] Beau Stuart MD CHEST PAIN (Primary Dx) Discharge Disposition: Home or Self Care 03/25/2024 2:48 PM PST - 03/25/2024 7:29 PM PST [facility] [address] [place] [address] Memo Zacarias MD FLANK PAIN (Primary Dx); HEMATURIA Discharge Disposition: Home or Self Care 03/13/2024 2:28 PM PST - 03/13/2024 5:03 PM PST [facility] [address] [place] [address] Alexandra Barry DO Fellin, Matthew Aaron, MD FLANK PAIN (Primary Dx); URETERAL CALCULUS; HEMATURIA Discharge Disposition: Home or Self Care from Last 3 Months Social History Tobacco Use Types Packs/Day Years Used Date Smoking Tobacco: Never Assessed Sex and Gender Information Value Date Recorded Sex Assigned at Not on file Gender Identity Not on file Sexual Orientation Not on file Last Filed Vital Signs Vital Sign Reading Time Taken Comments Blood Pressure 132/88 04/15/2024 6:45 PM PDT Pulse 73 04/15/2024 6:45 PM PDT Temperature 36.9 C (98.5 F) 04/15/2024 2:53 PM PDT Respiratory Rate 16 04/15/2024 6:45 PM PDT Oxygen Saturation 97% 04/15/2024 6:45 PM PDT Inhaled Oxygen Concentration - - Weight 106.6 kg (235 lb) 03/13/2024 2:37 PM PST Height - - Body Mass Index - - Plan of Treatment Health Maintenance Due Date Last Done Comments COVID-19 Vaccine (#4) Completed 11/10/2023, 021, 01/24/2020 Procedures Procedure Name Priority Date/Time Associated Diagnosis Comments EKG 12 OR MORE LEADS W INT & RPT STAT 04/16/2024 8:08 AM PDT TROPONIN I Routine 04/15/2024 6:09 PM PDT ORDER ADD ON LABORATORY TEST STAT 04/15/2024 4:12 PM PDT XR CHEST PA AND LAT STAT 04/15/2024 3 :31 PM PDT TROPONIN I STAT 04/15/2024 3:11 PM PDT AMPHETAMINE CONFIRMATION PANEL (AMP, METH, MDA, MDMA), URINE, LC/MS/MS STAT 04/15/2024 3:11 PM PDT D-DIMER, QUANTITATIVE STAT 04/15/2024 3:11 PM PDT N-TERMINAL PRO-BNP STAT 04/15/2024 3: 11 PM PDT WBC DIFF AUTO, 6 PART STAT 04/15/2024 3:11 PM PDT FENTANYL SCREEN, URINE, AUTOMATED ANALYZER STAT 04/15/2024 3:11 PM PDT DRUG SCREEN (AMP, BAR, BZD, VALENTINA, METH, MTD, OPI, OXYCOD, THC), URINE, INSTRUMENT OPTICAL INTERP STAT 04/15/2024 3:11 PM PDT URINALYSIS, AUTOMATED W REFLEX TO MICROSCOPY AND CULTURE STAT 04/15/2024 3:11 PM PDT COLLECT AND HOLD IN LAB STAT 04/15/2024 3:11 PM PDT COMPREHENSIVE METABOLIC PANEL (NA,K,CL,CO2,BUN,CR, GLUC,CA,ALB,TBILI,TPRO T,ALT,AST,ALKP) STAT 04/15/2024 3:11 PM PDT CBC W AUTOMATED DIFFERENTIAL STAT 04/15/2024 3:11 PM PDT ORDER ADD ON LABORATORY TEST STAT 04/15/2024 3:10 PM PDT URINALYSIS, MICROSCOPY STAT 3:53 PM PST WBC DIFF AUTO, 6 PART STAT 03/25/2024 3:53 PM PST URINALYSIS, AUTOMATED W REFLEX TO MICROSCOPY AND CULTURE STAT 03/25/2024 3:53 PM PST HEPATIC FUNCTION PANEL (ALB, TBILI, DBILI, ALKP, TPROT, ALT, AST) STAT 03/25/2024 3:53 PM PST COMPREHENSIVE METABOLIC PANEL (NA,K,CL,CO2,BUN,CR, GLUC,CA,ALB,TBILI,TPRO T,ALT,AST,ALKP) STAT 03/25/2024 3:53 PM PST CBC W AUTOMATED DIFFERENTIAL STAT 03/25/2024 3:53 PM PST WBC DIFF AUTO, 6 PART STAT 03/13/2024 2:48 PM PST INR STAT 03/13/2024 2:48 PM PST COMPREHENSIVE METABOLIC PANEL (NA,K,CL,CO2,BUN,CR, GLUC,CA,ALB,TBILI,TPRO T,ALT,AST,ALKP) STAT 03/13/2024 2:48 PM PST CBC W AUTOMATED DIFFERENTIAL STAT 03/13/2024 2:48 PM PST URINALYSIS, MICROSCOPY STAT 2:45 PM PST URINALYSIS, AUTOMATED W REFLEX TO MICROSCOPY AND CULTURE STAT 03/13/2024 2:45 PM PST from Last 3 Months Results * EKG 12 OR MORE LEADS W INT & RPT (04/16/2024 8:08 AM PDT) EKG Impression Normal sinus rhythm Confirmed by Stan Mae () on 04/16/2024 8:08:24 AM NW GE MUSE EKG SYSTEM Cardiac rate 85 BPM NW GE M USE EKG SYSTEM SC interval 148 ms NW GE MU SE EKG SYSTEM QRS interval 98 ms NW GE M USE EKG SYSTEM QT interval 356 ms NW GE MU SE EKG SYSTEM QT corrected 423 ms NW GE M USE EKG SYSTEM Frontal Guild: P -13 degrees NW G E MUSE EKG SYSTEM Frontal Guild: mean QRS -5 degrees NW GE MUSE EKG SYSTEM Frontal axis: T 34 degrees NW G E MUSE EKG SYSTEM Anatomical Region Laterality Modality Electrocardiogra phy 04/15/2024 2:49 PM PDT 04/16/2024 8:08 AM PDT Greta Becerra DO EKG * TROPONIN I (04/15/2024 6:09 PM PDT) Pathologist [facility] Troponin I <0.01 <=0.03 ng/mL [facility] Comment: Positive troponins that do not increase may be due to congestive heart failure, hypertension, hypotension, pulmonary embolism, myocarditis, renal failure, drug toxicity (eg Adriamycin) and other conditions. BLOOD / Unknown 04/15/2024 6 :09 PM PDT 04/15/2024 6:17 PM PDT Narrative [facility] - 04/15/2024 6:42 PM PDT High doses of biotin (>5000 micrograms/day) can falsely elevate or decrease lab values for this test. Stop taking high dose biotin for 48 hours before having lab tests drawn.Specimen Type: Blood Collection Method: Venipuncture Specimen Source: Collected by: CARINA AKINS Collected Date/Time: 04/15/2024 18:09:47 Beau Stuart MD BLOOD [facility] [address] [facility], [place] [address] [facility] [address] [place] [address] * ORDER ADD ON LABORATORY TEST (04/15/2024 4:12 PM PDT) Pathologist [facility] ADDITIONAL TESTING. troponin [facility] ADDITIONAL TESTING. MOST RECENT [facility] BLOOD / Unknown 04/15/2024 4 :12 PM PDT 04/15/2024 4:12 PM PDT Beau Stuart MD BLOOD [facility] [address] [facility] [address], [place] [address] [facility] [address] [place] [address] * XR CHEST PA AND LAT (04/15/2024 3:31 PM PDT) Anatomical Region Laterality Modality Chest Digital Radiogra phy 04/16/2024 7:37 PM PDT Impressions 04/16/2024 7:39 PM PDT No acute abnormality. Electronically signed by Sanjay Hernandez MD. 04/16/2024 7:39 PM Narrative 04/16/2024 7:39 PM PDT EXAM: XR CHEST PA AND LAT EXAM DATE AND TIME: 04/15/2024 3:30 PM CLINICAL HISTORY: Clinical Concern : Chest Pain. COMPARISON: None. FINDINGS: The lungs are clear. No pneumothorax is apparent. Single-chamber left chest wall cardiac pacemaker is noted. The cardiac silhouette is normal in size. There is no suspicious mediastinal contour abnormality. There is no acute bone abnormality. Procedure Note Sanjay Hernandez MD - 04/16/2024 EXAM: XR CHEST PA AND LAT EXAM DATE AND TIME: 04/15/2024 3:30 PM CLINICAL HISTORY: Clinical Concern : Chest Pain. COMPARISON: None. FINDINGS: The lungs are clear. No pneumothorax is apparent. Single-chamber left chest wall cardiac pacemaker is noted. The cardiacsilhouette is normal in size. There is no suspicious mediastinal contour abnormality. There is no acute bone abnormality. IMPRESSION: No acute abnormality. Electronically signed by Sanjay Hernandez MD. 04/16/2024 7:39 PM Greta Becerra DO GENERAL RADIOLOGY * (ABNORMAL) DRUG SCREEN (AMP, BAR, BZD, VALENTINA, METH, MTD, OPI, OXYCOD, THC), URINE, INSTRUMENT OPTICALINTERP (04/15/2024 3:11 PM PDT) Cannabinoids (THC) Negative Negative [facility] Cocaine Metabolite Negative Negative [facility] Methamphetamine Negative Negative [facility] Opiates Negative Negative [facility] Amphetamine Further Testing Required(A) Negative [facility] Benzodiazepines Negative Negative [facility] Methadone: Negative Negative [facility] Barbiturates Negative Negative [facility] Oxycodone Negative Negative [facility] Drug Screen Comment: See Note [facility] Comment: Screening Cut-offs Cannabinoids (THC): 50 ng/mL Cocaine Metabolite: 150 ng/mL Methampetamine: 500 ng/mL Opiates: 100 ng/mL Amphetamine: 500 ng/mL Benzodiazepines: 150 ng/mL Methadone: 200 ng/mL Barbiturates: 200 ng/mL Oxycodone: 100 ng/mL Drugs of abuse tests performed at [facility] are for medical diagnosis and treatment only. Specimen collection procedures are not designed to meet required criteria for legal or benefit testing. URINE 04/15/2024 3:11 PM PDT 04/15/2024 3:31 PM PDT Narrative [facility] - 04/15/2024 4:08 PM PDT Specimen Type: Blood Collection Method: Venipuncture Specimen Source: Collected by: CARINA AKINS Collected Date/Time: 04/15/2024 15:11:11 Beau Stuart MD CLINICAL LABORATORY [facility] [address] [facility], [place] [address] [facility] [address] [place] [address] * (ABNORMAL) AMPHETAMINE CONFIRMATION PANEL (AMP, METH, MDA, MDMA), URINE, LC/MS/MS (04/15/2024 3:11 PM PDT) U Amph Qual POSITIVE(A) [facility] U Methamph Qual NEGATIVE [facility] U MDMA Qual NEGATIVE [facility] Comment: Methamphetamine is NOT a metabolite of amphetamine. The presence of methamphetamine indicates use of methamphetamine Results confirmed by mass spectroscopy. This is a lab-developed test not evaluated by the FDA URINE 04/15/2024 3:11 PM PDT 04/15/2024 6:15 PM PDT Beau Stuart MD CLINICAL LABORATORY Performing Organization Address [facility] Co de Phone Number [facility] [address] [place] [address] * FENTANYL SCREEN, URINE, AUTOMATED ANALYZER (04/15/2024 3:11 PM PDT) [facility] Fentanyl,ur,ql Negative Negative [facility] Comment: Fentanyl screening cut-off: 1.0 ng/mL Drugs of abuse tests performed at [facility] are for medical diagnosis and treatment only. Specimen collection procedures are not designed to meet required criteria for legal or benefit testing. URINE 04/15/2024 3:11 PM PDT 04/15/2024 3:31 PM PDT Narrative [facility] - 04/15/2024 3:52 PM PDT Specimen Type: Blood Collection Method: Venipuncture Specimen Source: Collected by: CARINA AKINS Collected Date/Time: 04/15/2024 15:11:11 Beau Stuart MD CLINICAL LABORATORY Performing Organization Address [facility] Co de Phone Number [facility] [address] [place], [place] [id number] [place] [address] [facility]ORY [address] [place] [address] * WBC DIFF AUTO, 6 PART (04/15/2024 3:11 PM PDT) [facility] % Neutrophils 54.6 % [facility] Comment:Neutrophils = Segmen claudia Neutrophils and Bands % Myeloid Precursors Auto 0.3 % [facility] Comment: Immature Grans = Metamyelocytes, Myelocytes and Promyelocytes % Lymphocytes 36.1 % [facility] % Monocytes 7.3 % [facility] % Eosinophils 1.2 % [facility] % Basophils 0.5 % [facility] # Neutrophils 3.28 1.80 - 8.30 x10(9)/L [facility] Comment:Neutrophils = Segmen claudia Neutrophils and Bands # Myeloid Precursors Abs Auto 0.02 0.01 - 0.07 x10(9)/L [facility] Comment: Immature Grans = Metamyelocytes, Myelocytes and Promyelocytes # Lymphocytes 2.17 1.00 - 4.80 x10(9)/L [facility] # Monocytes 0.44 0.00 - 0.90 x10(9)/L [facility] # Eosinophils 0.07 0.00 - 0.40 x10(9)/L [facility] # Basophils 0.03 0.00 - 0.20 x10(9)/L [facility] ANC Auto 3.28 1.80 - 8.30 x10(9)/L [facility] BLOOD / Unknown 04/15/2024 3 :11 PM PDT 04/15/2024 3:16 PM PDT Greta Becerra DO BLOOD Performing Organization Address City/[facility]/ZIP Co de Phone Number [facility] [address] [address] [place] [address] * N-TERMINAL PRO-BNP (04/15/2024 3:11 PM PDT) N-Terminal Pro-BNP <20 <=450 pg/mL [facility] BLOOD / Unknown 04/15/2024 3 :11 PM PDT 04/15/2024 3:16 PM PDT Narrative [facility] - 04/15/2024 3:56 PM PDT High doses of biotin (>5000 micrograms/day) can falsely elevate or decrease lab values for this test. Stop taking high dose biotin for 48 hours before having lab tests drawn. Greta Becerra DO BLOOD [facility] [address] LABORATORY [address] [place] [address] * COLLECT AND HOLD IN LAB (04/15/2024 3:11 PM PDT) Draw and hold: Received in Lab [facility] BLOOD / Unknown 04/15/2024 3 :11 PM PDT 04/15/2024 3:16 PM PDT Narrative [facility] - 04/15/2024 3:16 PM PDT Specimen Type: Blood Collection Method: Venipuncture Specimen Source: Collected by: CARINA AKINS Collected Date/Time: 04/15/2024 15:11:11 Greta Becerra DO BLOOD [facility] [address] [facility], [place] [address] [facility] [address] [place] [address] * COMPREHENSIVE METABOLIC PANEL (NA,K,CL,CO2,BUN,CR, GLUC,CA,ALB,TBILI,TPROT,ALT,AST,ALKP) (04/15/2024 3:11 PM PDT) Sodium 139 136 - 148 mmol/L [facility] Potassium 3.6 3.5 - 5.1 mmol/L [facility] Chloride 103 97 - 109 mmol/L [facility] CO2 28 22 - 32 mmol/L [facility] Anion gap, ser/plas 8 4 - 12 mmol/L [facility] Glucose, Random 106 70 - 200 mg/dL [facility] BUN 13 6 - 20 mg/dL [facility] Creatinine 0.87 <=1.30 mg/dL [facility] Total Bili 0.6 <=1.1 mg/dL [facility] Total Protein 7.4 6.4 - 8.3 gm/dL [facility] Albumin 4.65 3.40 - 5.20 gm/dL [facility] AST (GOT) 30 10 - 50 unit/L [facility] ALT (SGPT) 39 10 - 58 unit/L [facility] Alk Phos 71 40 - 129 unit/L [facility] Calcium 9.5 8.4 - 10.2 mg/dL [facility] BLOOD / Unknown 04/15/2024 3 :11 PM PDT 04/15/2024 3:16 PM PDT Narrative [facility] - 04/15/2024 3:47 PM PDT Specimen Type: Blood Collection Method: Venipuncture Specimen Source: Collected by: CARINA AKINS Collected Date/Time: 04/15/2024 15:11:11 Greta Hernan [facility] BLOOD Performing Organization Address [facility] de Phone Number [facility] [address] LABORATORY [address] [place] [address] * TROPONIN I (04/15/2024 3:11 PM PDT) [facility] Troponin I <0.01 <=0.03 ng/mL [facility] Comment: Positive troponins that do not increase may be due to congestive heart failure, hypertension, hypotension, pulmonary embolism, myocarditis, renal failure, drug toxicity (eg Adriamycin) and other conditions. BLOOD / Unknown 04/15/2024 3 :11 PM PDT 04/15/2024 3:16 PM PDT Narrative [facility] - 04/15/2024 4:55 PM PDT High doses of biotin (>5000 micrograms/day) can falsely elevate or decrease lab values for this test. Stop taking high dose biotin for 48 hours before having lab tests drawn. Greta Hernan [facility] BLOOD Performing Organization Address [facility] de Phone Number [facility] [address] LABORATORY [address] [place] [address] * D-DIMER, QUANTITATIVE (04/15/2024 3:11 PM PDT) Pathologist [facility] D-Dimer <0.27 <=0.50 ug/ml FEU [facility] Comment: NOTE: Reference range changed from <500 ng/ml FEU to <0.5 ug/ml FEU on 06/21/2022 A cut-off value of 0.5 ug/ml FEU is used in conjuction with a pretest probablility assessment for deep vein thrombosis (DVT) and/or pulmonary embolism (PE). For patients 50 years and older, multiply the age by 0.01 to get adjusted cut-off number. A D-dimer result less than this cutoff number is considered a negative or normal finding. Example: if you are 65 years old, your cutoff value is 65 x 0.01 = 0.65. A D-dimer less than 0.65 would be considered negative or normal. BLOOD / Unknown 04/15/2024 3 :11 PM PDT 04/15/2024 3:17 PM PDT Greta Becerra DO BLOOD Performing Organization Address [facility] Co de Phone Number [facility] [address] LABORATORY [address] [place] [address] * URINALYSIS, AUTOMATED W REFLEX TO MICROSCOPY AND CULTURE (04/15/2024 3:11 PM PDT) Color: Yellow Yellow [facility] Appearance: Clear Clear [facility] Specific [place] <1.005 1.005 - 1.030 [facility] pH 5.5 5.0 - 8.0 [facility] Leukocytes Negative Negative [facility] Nitrite, Ur Negative Negative [facility] Protein Negative Negative mg/dL [facility] Glucose Negative Negative mg/dL [facility] Ketones Negative Negative mg/dL [facility] UA Hgb Negative Negative [facility] URINE 04/15/2024 3:11 PM PDT 04/15/2024 3:31 PM PDT Narrative [facility] - 04/15/2024 3:56 PM PDT Specimen Type: Blood Collection Method: Venipuncture Specimen Source: Collected by: CARINA AKINS Collected Date/Time: 04/15/2024 15:11:11 Greta Hernan [facility] Performing Organization Address [facility] Co de Phone Number [facility] [address] LABORATORY [address] [place] [address] * CBC W AUTOMATED DIFFERENTIAL (04/15/2024 3:11 PM PDT) WBC 6.01 4.00 - 10.50 x10(9)/L [facility] RBC 4.93 4.00 - 5.50 x10(12)/L [facility] Hemoglobin 14.4 13.0 - 17.0 gm/dL [facility] Hematocrit 42.5 37.0 - 50.0 % [facility] MCV 86.2 82.0 - 100.0 fL [facility] MCH 29.2 28.0 - 35.0 pg [facility] MCHC 33.9 31.0 - 36.5 gm/dL [facility] RDW, CV 13.8 11.0 - 14.5 % [facility] RDW, SD 43.1 36.0 - 50.0 fL [facility] Platelet Count 275 140 - 375 x10(9)/L [facility] MPV 9.8 fL [facility] Differential result See Diff Report [facility] BLOOD / Unknown 04/15/2024 3 :11 PM PDT 04/15/2024 3:16 PM PDT Narrative [facility] - 04/15/2024 3:20 PM PDT Specimen Type: Blood Collection Method: Venipuncture Specimen Source: Collected by: CARINA AKINS Collected Date/Time: 04/15/2024 15:11:11 Greta Becerra DO BLOOD [facility] [address] LABORATORY [address] [place] [address] * ORDER ADD ON LABORATORY TEST (04/15/2024 3:10 PM PDT) ADDITIONAL TESTING. BNP, d-dimer [facility] ADDITIONAL TESTING. MOST RECENT [facility] BLOOD / Unknown 04/15/2024 3 :10 PM PDT 04/15/2024 3:21 PM PDT Beau Stuart MD BLOOD [facility] [address] [facility], [address] LABORATORY [address] [place] [address] * WBC DIFF AUTO, 6 PART (03/25/2024 3:53 PM PST) % Neutrophils 55.4 % [facility] Comment:Neutrophils = Segmen claudia Neutrophils and Bands % Myeloid Precursors Auto 0.4 % [facility] Comment: Immature Grans = Metamyelocytes, Myelocytes and Promyelocytes % Lymphocytes 35.6 % [facility] % Monocytes 6.3 % [facility] % Eosinophils 1.8 % [facility] % Basophils 0.5 % [facility] # Neutrophils 3.15 1.80 - 8.30 x10(9)/L [facility] Comment:Neutrophils = Segmen claudia Neutrophils and Bands # Myeloid Precursors Abs Auto 0.02 0.01 - 0.07 x10(9)/L [facility] Comment: Immature Grans = Metamyelocytes, Myelocytes and Promyelocytes # Lymphocytes 2.02 1.00 - 4.80 x10(9)/L [facility] # Monocytes 0.36 0.00 - 0.90 x10(9)/L [facility] # Eosinophils 0.10 0.00 - 0.40 x10(9)/L [facility] # Basophils 0.03 0.00 - 0.20 x10(9)/L [facility] ANC Auto 3.15 1.80 - 8.30 x10(9)/L [facility] BLOOD / Unknown 03/25/2024 3 :53 PM PST 03/25/2024 4:03 PM PST Memo Zacarias MD BLOOD [facility] [address] [facility], [address] [place], [place] [address] [place] [address] LABORATORY [address] [place] [address] * COMPREHENSIVE METABOLIC PANEL (NA,K,CL,CO2,BUN,CR, GLUC,CA,ALB,TBILI,TPROT,ALT,AST,ALKP) (03/25/2024 3:53 PM PST) Pathologist [facility] Sodium 140 136 - 148 mmol/L [facility] Potassium 3.7 3.5 - 5.1 mmol/L [facility] Chloride 100 97 - 109 mmol/L [facility] CO2 28 22 - 32 mmol/L [facility] Anion gap, ser/plas 12 4 - 12 mmol/L [facility] Glucose, Random 99 70 - 200 mg/dL [facility] BUN 14 6 - 20 mg/dL [facility] Creatinine 0.83 <=1.30 mg/dL [facility] Total Bili 0.6 <=1.1 mg/dL [facility] Total Protein 7.3 6.4 - 8.3 gm/dL [facility] Albumin 4.6 3.4 - 5.2 gm/dL [facility] AST (GOT) 36 10 - 50 unit/L [facility] ALT (SGPT) 42 10 - 58 unit/L [facility] Alk Phos 69 40 - 129 unit/L [facility] Calcium 9.3 8.4 - 10.2 mg/dL [facility] BLOOD / Unknown 03/25/2024 3 :53 PM PST 03/25/2024 4:03 PM PST Narrative [facility] - 03/25/2024 4:32 PM PST Specimen Type: Blood Collection Method: Venipuncture Specimen Source: Collected by: RICHARD RAYO Collected Date/Time: 03/25/2024 15:53:55 Memo Zacarias MD BLOOD [facility] [address] [facility], [facility] [address] [place], [place] [address] [place] [address] LABORATORY [address] [place] [address] * HEPATIC FUNCTION PANEL (ALB, TBILI, DBILI, ALKP, TPROT, ALT, AST) (03/25/2024 3:53 PM PST) Total Bili 0.6 <=1.1 mg/dL [facility] Direct Bili 0.2 <=0.3 mg/dL [facility] Total Protein 7.3 6.4 - 8.3 gm/dL [facility] Albumin 4.6 3.4 - 5.2 gm/dL [facility] Alk Phos 69 40 - 129 unit/L [facility] AST (GOT) 36 10 - 50 unit/L [facility] ALT (SGPT) 42 10 - 58 unit/L [facility] BLOOD / Unknown 03/25/2024 3 :53 PM PST 03/25/2024 4:03 PM PST Narrative [facility] - 03/25/2024 4:32 PM PST Specimen Type: Blood Collection Method: Venipuncture Specimen Source: Collected by: RICHARD RAYO Collected Date/Time: 03/25/2024 15:53:55 Memo Zacarias MD BLOOD Performing Organization Address [facility] de Phone Number [facility] [address] LABORATORY [address] [facility] [place] [address] * (ABNORMAL) URINALYSIS, MICROSCOPY (03/25/2024 3:53 PM PST) WBC 0-5 None Seen /HPF [facility] RBC/HPF: >20(A) None Seen /HPF [facility] Bacteria None Seen None Seen cells/ L [facility] Squam Epi Occasional /HPF [facility] UA Casts 0-2 /LPF [facility] Comment: The value indicates the numeric range of hyaline casts counted unless other types of casts are documented as present. URINE 03/25/2024 3:53 PM PST 03/25/2024 4:09 PM PST Memo Zacarias MD CLINICAL LABORATOR Y Performing Organization Address City/[facility]/ZIP Co de Phone Number [facility] [address] LABORATORY [address] [facility] [place] [address] * (ABNORMAL) URINALYSIS, AUTOMATED W REFLEX TO MICROSCOPY AND CULTURE (03/25/2024 3:53 PM PST) Color: Yellow Yellow [facility] Appearance: Clear Clear [facility] Specific [place] 1.015 1.005 - 1.030 [facility] pH 5.5 5.0 - 8.0 [facility] Leukocytes Negative Negative [facility] Nitrite, Ur Negative Negative [facility] Protein Negative Negative mg/dL [facility] Glucose Negative Negative mg/dL [facility] Ketones Negative Negative mg/dL [facility] UA Hgb Moderate(A) Negative [facility] URINE 03/25/2024 3:53 PM PST 03/25/2024 4:09 PM PST Narrative [facility] - 03/25/2024 4:23 PM PST Specimen Type: Blood Collection Method: Venipuncture Specimen Source: Collected by: RICHARD RAYO Collected Date/Time: 03/25/2024 15:53:55 Memo Zacarias MD CLINICAL LABORATOR Y [facility] [address] [facility], [place] [address] [facility] [address] [place] [address] * CBC W AUTOMATED DIFFERENTIAL (03/25/2024 3:53 PM PST) WBC 5.68 4.00 - 10.50 x10(9)/L [facility] RBC 4.86 4.00 - 5.50 x10(12)/L [facility] Hemoglobin 14.2 13.0 - 17.0 gm/dL [facility] Hematocrit 41.3 37.0 - 50.0 % [facility] MCV 85.0 82.0 - 100.0 fL [facility] MCH 29.2 28.0 - 35.0 pg [facility] MCHC 34.4 31.0 - 36.5 gm/dL [facility] RDW, CV 13.2 11.0 - 14.5 % [facility] RDW, SD 41.4 36.0 - 50.0 fL [facility] Platelet Count 263 140 - 375 x10(9)/L [facility] MPV 10.3 fL [facility] Differential result See Diff Report [facility] BLOOD / Unknown 03/25/2024 3 :53 PM PST 03/25/2024 4:03 PM PST Narrative [facility] - 03/25/2024 4:14 PM PST Specimen Type: Blood Collection Method: Venipuncture Specimen Source: Collected by: RICHARD RAYO Collected Date/Time: 03/25/2024 15:53:55 Memo Zacarias MD BLOOD [facility] [address] [facility], [address] LABORATORY [address] [place] [address] * WBC DIFF AUTO, 6 PART (03/13/2024 2:48 PM PST) % Neutrophils 61.7 % [facility] Comment:Neutrophils = Segmen claudia Neutrophils and Bands % Myeloid Precursors Auto 0.5 % [facility] Comment: Immature Grans = Metamyelocytes, Myelocytes and Promyelocytes % Lymphocytes 29.6 % [facility] % Monocytes 5.9 % [facility] % Eosinophils 1.7 % [facility] % Basophils 0.6 % [facility] # Neutrophils 4.07 1.80 - 8.30 x10(9)/L [facility] Comment:Neutrophils = Segmen claudia Neutrophils and Bands # Myeloid Precursors Abs Auto 0.03 0.01 - 0.07 x10(9)/L [facility] Comment: Immature Grans = Metamyelocytes, Myelocytes and Promyelocytes # Lymphocytes 1.95 1.00 - 4.80 x10(9)/L [facility] # Monocytes 0.39 0.00 - 0.90 x10(9)/L [facility] # Eosinophils 0.11 0.00 - 0.40 x10(9)/L [facility] # Basophils 0.04 0.00 - 0.20 x10(9)/L [facility] ANC Auto 4.07 1.80 - 8.30 x10(9)/L [facility] BLOOD / Unknown 03/13/2024 2 :48 PM PST 03/13/2024 3:05 PM PST Alexandra Barry DO BLOOD [facility] [address] [facility], [place] [address] [facility] [address] [place] [address] * (ABNORMAL) COMPREHENSIVE METABOLIC PANEL (NA,K,CL,CO2,BUN,CR, GLUC,CA,ALB,TBILI,TPROT,ALT,AST,ALKP)(03/13/2024 2:48 PM PST) Pathologist [facility] Sodium 138 136 - 148 mmol/L [facility] Potassium 3.8 3.5 - 5.1 mmol/L [facility] Chloride 101 97 - 109 mmol/L [facility] CO2 23 22 - 32 mmol/L [facility] Anion gap, ser/plas 14(H) 4 - 12 mmol/L [facility] Glucose, Random 126 70 - 200 mg/dL [facility] BUN 18 6 - 20 mg/dL [facility] Creatinine 0.81 <=1.30 mg/dL [facility] Total Bili 0.8 <=1.1 mg/dL [facility] Total Protein 7.7 6.4 - 8.3 gm/dL [facility] Albumin 4.76 3.40 - 5.20 gm/dL [facility] AST (GOT) 36 10 - 50 unit/L [facility] ALT (SGPT) 38 10 - 58 unit/L [facility] Alk Phos 80 40 - 129 unit/L [facility] Calcium 9.7 8.4 - 10.2 mg/dL [facility] BLOOD / Unknown 03/13/2024 2 :48 PM PST 03/13/2024 3:05 PM PST Alexandra Barry DO BLOOD [facility] [address] LABORATORY [address] [place] [address] * INR (03/13/2024 2:48 PM PST) INR 1.0 0.9 - 1.2 [facility] Comment: Coumadin Therapeutic Range: Low Dose: INR 2.0 - 3.0 High Dose: INR 2.5 - 3.5 BLOOD / Unknown 03/13/2024 2 :48 PM PST 03/13/2024 3:05 PM PST Alexandra Barry BLOOD [facility] [address] LABORATORY [address] [place] [address] * CBC W AUTOMATED DIFFERENTIAL (03/13/2024 2:48 PM PST) WBC 6.59 4.00 - 10.50 x10(9)/L [facility] RBC 5.09 4.00 - 5.50 x10(12)/L [facility] Hemoglobin 14.9 13.0 - 17.0 gm/dL [facility] Hematocrit 43.1 37.0 - 50.0 % [facility] MCV 84.7 82.0 - 100.0 fL [facility] MCH 29.3 28.0 - 35.0 pg [facility] MCHC 34.6 31.0 - 36.5 gm/dL [facility] RDW, CV 13.1 11.0 - 14.5 % [facility] RDW, SD 40.5 36.0 - 50.0 fL [facility] Platelet Count 289 140 - 375 x10(9)/L [facility] MPV 9.9 fL [facility] Differential result See Diff Report [facility] BLOOD / Unknown 03/13/2024 2 :48 PM PST 03/13/2024 3:05 PM PST Alexandra Barry DO BLOOD [facility] [address] LABORATORY [address] [place] [address] * (ABNORMAL) URINALYSIS, MICROSCOPY (03/13/2024 2:45 PM PST) WBC 0-5 None Seen /HPF [facility] RBC/HPF: >20(A) None Seen /HPF [facility] Bacteria None Seen None Seen cells/ L [facility] Squam Epi Occasional /HPF [facility] UA Casts 0-2 /LPF [facility] Comment: The value indicates the numeric range of hyaline casts counted unless other types of casts are documented as present. URINE 03/13/2024 2:45 PM PST 03/13/2024 3:03 PM PST Alexandraedgar Matatrey [facility] Performing Organization Address [facility] Co de Phone Number [facility] [address] [place], [place] [id number] [place] [address] LABORATORY [address] [place] [address] * (ABNORMAL) URINALYSIS, AUTOMATED W REFLEX TO MICROSCOPY AND CULTURE (03/13/2024 2:45 PM PST) Color: Yellow Yellow [facility] Appearance: Clear Clear [facility] Specific [place] 1.010 1.005 - 1.030 [facility] pH 5.5 5.0 - 8.0 [facility] Leukocytes Negative Negative [facility] Nitrite, Ur Negative Negative [facility] Protein Negative Negative mg/dL [facility] Glucose Negative Negative mg/dL [facility] Ketones Negative Negative mg/dL [facility] UA Hgb Large(A) Negative [facility] URINE 03/13/2024 2:45 PM PST 03/13/2024 3:03 PM PST Alexandraedgar Matatrey [facility] Performing Organization Address 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 If so, please note: This information has been disclosed to you from records protected by federal confidentiality rules (42 CFR part 2). The federal rules prohibit you from making any further disclosure of information in this record that identifies a patient as having or having had a substance use disorder either directly, by reference to publicly available information, or through verification of such identification by another person unless further disclosure is expressly permitted by the written consent of the individual whose information is being disclosed or as otherwise permitted by 42 CFR part 2. A general authorization for the release of medical or other information is NOT sufficient for this purpose (see ?? 2.31). The federal rules restrict any use of the information to investigate or prosecute with regard to a crime any patient with a substance use disorder, except as provided at ? 2.12(c)(5) and 2.65.[facility]
--- OUTSIDE RECORDS SUMMARY | 2024-04-19 21:42 | XMS_ITS | Clinical Summary ---
Author Organization [facility] Address [address] [place] [address] Care Team Providers Care Automation And Controls Instructor Name Role Phone None Per Patient, None Per Pt Primary Care Provi aliyah Unavailable Allergies Active Allergy Reactions Criticality Noted Date Comments Mirtazapine Other (See Comments),Palpitations High 07/25/2015 Pt states this caused a heart attack r/t tachycardia Tachycardia Venom-Wasp Anaphylaxis High 10/17/2018 Medications Cholecalciferol, Vitamin D3, 125 mcg (5,000 unit) capsule Take 1 capsule (5,000 Units total) by mouth at bedtime Active clonazePAM (KLONOPIN) 1 mg tablet Take 1 tablet (1 mg total) by mouth daily as needed for Anxiety Active EPINEPHrine 0.3 mg/0.3 mL injection Inject 0.3 mLs (0.3 mg total) into the muscle once as needed 9 Active lamoTRIgine (LaMICtal) 100 mg tablet Take 1 tablet (100 mg total) by mouth 2 times daily Active pregabalin (LYRICA) 100 mg capsule Take 1 capsule (100 mg total) by mouth 2 times daily Active lisdexamfetamine (VYVANSE) 40 mg capsule Take 70 mg by mouth every morning Active pantoprazole (PROTONIX) 20 mg EC tablet Take 1 tablet (20 mg total) by mouth at bedtime Active glycopyrrolate (ROBINUL) 2 mg tablet Take 2 tablets (4 mg total) by mouth 2 times daily 1 Active testosterone cypionate (DEPOTESTOSTERONE CYPIONATE) 200 mg/mL injection Inject 0.5 mLs (100 mg total) into the muscle once a week 1 Active rosuvastatin (CRESTOR) 5 mg tablet Take 1 tablet (5 mg total) by mouth at bedtime 1 Active ibuprofen 600 mg tablet Take 1 tablet (600 mg total) by mouth every 8 hours as needed for Pain 30 tablet 4 Active valsartan (DIOVAN) 160 mg tablet Take 2 tablets (320 mg total) by mouth every morning Active apixaban (Eliquis) 5 mg tablet Take 1 tablet (5 mg total) by mouth 2 times daily Resume in 3 days 4 Active oxyCODONE (ROXICODONE) 5 mg immediate release tablet Take 1 tablet (5 mg total) by mouth every 4 hours as needed for Pain 20 tablet 04/06/2023 11:35 AM PST 4 Active oxybutynin (DITROPAN) 5 mg tablet Take 1 tablet (5 mg total) by mouth 3 times daily as needed for (bladder spasms) 15 tablet 04/06/2023 11:35 AM PST 4 Active enoxaparin (LOVENOX) 40 mg/0.4 mL injection Inject 0.4 mLs (40 mg total) into the skin daily 0.8 mL 04/06/2023 11:37 AM PST 4 Active ondansetron (ZOFRAN ODT) 4 mg disintegrating tablet Take 1 tablet (4 mg total) by mouth every 6 hours as needed for Nausea place on the tongue. 10 tablet 4 Active ondansetron (ZOFRAN ODT) 4 mg disintegrating tablet Take 1 tablet (4 mg total) by mouth every 8 hours as needed for Nausea place on the tongue. 10 tablet 5 Active oxyCODONE (ROXICODONE) 5 mg immediate release tablet Take 1 tablet (5 mg total) by mouth every 6 hours as needed for Pain 20 tablet 5 Active Active Problems Problem Noted Date Diagnosed Date Morbid obesity with BMI of 40.0-44.9, adult 04/07 History of coronary artery bypass graft x 1 04/07 Overview (04/23/2020): LAD thrombus s/p IRBY to LAD in 2017 Essential hypertension 04/23/2020 Hyperlipidemia 04/23/2020 Bipolar 1 disorder, mixed, mild 04/23/2020 DOMENICO (obstructive sleep apnea) 04/23/2020 Hematemesis 03/04/2019 Clotting disorder (HHS/HCC) 03/04/2019 History of pulmonary embolism 03/04/2019 Depression 03/04/2019 ADHD 03/04/2019 Pre-diabetes 03/04/2019 Epigastric pain Heartburn Resolved Problems Problem Noted Date Diagnosed Date Resolved Date Inappropriate sinus tachycardia (HHS/HCC) 03/04/2019 04/24/2020 Encounters Date Type Department Care Team Description 04/05/2024 2:53 PM PST - 04/05/2024 6:37 PM [facility] Emergency [facility] Emergency Department [address] [place] [phone] Tomas Lao MD Chest pain, unspecified type (Primary Dx) Discharge Disposition: *Disch to Home or Self Care 04/05/2024 Travel 03/06/2024 1:00 PM PST - 03/06/2024 11:59 PM [facility] [address] [place] [phone] Zulma Garcia PA Derangement of left knee Discharge Disposition: *Disch to Home or Self Care 03/04/2024 4:52 PM PST - 03/04/2024 6:36 PM [facility] Emergency [facility] Emergency Department [address] [place] [phone] Right lower quadrant abdominal pain (Primary Dx) Discharge Disposition: *Disch to Home or Self Care 03/04/2024 Travel 02/18/2024 7:26 PM PST - 02/18/2024 8:43 PM [facility] Emergency [facility] Emergency Department [address] [place] [phone] Injury of left knee, initial encounter (Primary Dx); Traumatic injury of head, initial encounter Discharge Disposition: *Disch to Home or Self Care 02/18/2024 Travel from Last 3 Months Immunizations Name Administration Dates Next Due Bexsero 12/07/2016,11/01/2016 DTaP 03/07/2002, 8,06/25/1997,04/30,03/11/1997 DTaP/Hep B/IPV (Pediarix) 04/19/2012,,03/11/1997,12/27 H1N1 12/24/2008 HPV (Gardasil) 03/21/2013, 4,11/15/2012,11/15,09/12/2012,09/12/2012 Hep A/Hep B 10/23/2012,04/19/2012 Hepatitis A Ped/Adol 10/23/2012,04/19/2012 Hepatitis B 03/20/2017,02/18/2017 Hepatitis B Ped/Adol 04/19/2012,04/30/18 98,03/11/1997,12/27 Hib (PRP-T), 4 Dose 01/21/1998,04/30/1997,1997 IPV 03/07/2002, 8,04/30/1997,03/11 Influenza 11/22/2019 Influenza (nasal) 10/23/2012,10/25/2011 Influenza Cell Culture, Pres ervative Free 12/13/2019 Influenza, Preserve Free 12/10/2014,02/05/2013 Influenza, Quad 11/24/2018,10/09/2015,10/28/2014 Influenza, Quad (nasal) 10/17/2013 Influenza, Quad, Preserve Free 9,12/23/2016,11/22/2016,12/06,11/04/2015 Influenza, unspecified formulation 10/08,12/10/2014,10/28/2014,02/05 MMR 11/29/2018, 8,02/18/2017,05/10,03/07/2002,01/21/1998 Menactra 12/20/2015,10/21/2014 Meningococcal Polysaccharide 12/20/2015 PPD Test 11/29/2016 Pneumovax 03/10/2016,05/09/2015 Prevnar 13 05/28/2015,05/28/2015 Tdap 11/24/2018, 8,04/27/2015,03/09,10/25/2011 Varicella 04/19/2012,01/21/1998 Family History Medical History Relation Comments Sleep Apnea Father Cancer Maternal Grandfather Stroke Maternal Grandfather Cancer Maternal Grandmother Stroke Maternal Grandmother Depression Mother Diabetes Mother Sleep Apnea Mother Cancer Paternal Grandfather Stroke Paternal Grandmother Relation Status Comments Father Maternal Grandfather Maternal Grandmother Mother Paternal Grandfather Paternal Grandmother Social History Tobacco Use Types Packs/Day Years Used Date Smoking Tobacco: Never Smokeless Tobacco: Never Tobacco Cessation:Counseling Given: Not Answered Alcohol Use Standard Drinks/Week Comments Not Currently 0 (1 standard drink = 0.6 oz pur e alcohol) 2-3 drinks/week max Alcohol Use Answer Date Recorded Alcohol Audit Score 0 10/03/2022 Sexually Active Control Partners Comments Not Currently Sex and Gender Information Value Date Recorded Sex Assigned at Not on file Legal Sex Male 5:41 PM PDT Gender Identity Not on file Sexual Orientation Not on file Last Filed Vital Signs Vital Sign Reading Time Taken Comments Blood Pressure 120/84 04/05/2024 6:30 PM PST Pulse 66 04/05/2024 6:30 PM PST Temperature 36.6 C (97.8 F) 04/05/2024 2:56 PM PST Respiratory Rate 15 04/05/2024 6:30 PM PST Oxygen Saturation 95% 04/05/2024 6:30 PM PST Inhaled Oxygen Concentration - - Weight 110.2 kg (242 lb 15.2 oz) 04/06/2023 6:28 AM PST Height 172.7 cm (5' 8 ) 04/05/2024 3:00 PM PST Body Mass Index 36.94 04/06/2023 6:28 AM PST Plan of Treatment Health Maintenance Due Date Last Done Comments Hepatitis C Ab Screening 1996 Syphilis (RPR) Screening 1996 Depression Screening (PHQ/EPDS) 2008 HIV Screening 12/26/2011 Lipid Screening 04/23/2021 04/23/2020, 02/27/2019 Tetanus Vaccine 11/07/2029 11/08/2019, 10/09, 11/24/2018, Additional history exists Pneumo Vaccine 0-49 yrs (3 o f 3 - PCV20 or PCV21) 2046 03/10/2016, 05/28/2015, 05/28/2015, Additional history exists Zoster Vaccine (1 of 2) 2046 Hib Vaccine Completed 01/21/1998, 04/08, 03/11/1997 Hepatitis A Vaccine Completed 10/23/2012, 10/23/2012, 04/19/2012, Additional history exists HPV Vaccine Completed 03/21/2013, 03/10, 11/15/2012, Additional history exists Meningococcal ACWY Vaccine Completed 12/19, 12/20/2015, 10/21/2014 Meningococcal B Vaccine Completed 12/07/2016, 11/01 Hepatitis B Vaccine Completed 03/20/2017, 02/18/2017, 10/23/2012, Additional history exists Influenza Vaccine Completed 11/05/2023, , 12/01/2022, Additional history exists COVID-19 Vaccine Completed 11/10/2023, 08/2020, 01/24/2020 Goals Goal Patient Goal Type Associated Problems Recent Progress Patient-Stated? Author All members of patient's care team will be identified General Kristyn Hart RN Medical Devices Implanted Type Area Pilot Plant Technician Device Identifier Shelf Expiration Date Model / Serial / Lot Leads Pacemakers/Defib rillators Imp (36 300)-11/09/2021 Implanted:2021 (Quantity not on file) Leads Pacemakers/De fibrillators IMP (36 300) Vobile 52 / [id number] / Description:MR CONDITIONAL f or 1.5T and 3T for normal operating mode per [employer] website lookup: [email or web address] Software/ Pacer MODEL [id number] SERIAL [id number] SINGLE LEAD RT MODEL /52 SERIAL [id number] 02/26/24 Pacemaker Inernal Imp (36 000)-11/09/2021 Implanted:2021 (Quantity not on file) Pacemaker Inernal IMP (36 000) [employer] [id number] / [id number] / Description:MR CONDITIONAL f or 1.5T and 3T for normal operating mode per [employer] website lookup: [email or web address]://[email or web address] Software/ Pacer MODEL [id number] SERIAL [id number] SINGLE LEAD RT MODEL /52 SERIAL [id number] 02/26/24 Procedures Procedure Name Priority Date/Time Associated Diagnosis Comments TROPONIN I LEVEL ED 04/05/2024 5:13 PM PST X-RAY CHEST 1 VIEW PORTABLE STAT 04/05/2024 3:35 PM PST D-DIMER QUANTITIATIVE HIGH SPECIFICITY ED 04/05/2024 3:01 PM PST TROPONIN I LEVEL ED 04/05/2024 3:01 PM PST LIPASE ED 04/05/2024 3:01 PM PST COMPREHENSIVE METABOLIC AVITIA W/ GFR ED 04/05/2024 3:01 PM PST COMPLETE BLOOD COUNT WITH AUTO DIFFERENTIAL ED 04/05/2024 3:01 PM PST EKG 12-LEAD Routine 04/05/2024 2:56 PM PST MRI KNEE LEFT WO CONTRAST Routine 03/06/2024 1:54 PM PST Derangement of left knee _UA W MICROSCOPIC C/S IF INDICATED - IP ONLY ED 03/04/2024 5:[address] ABDOMEN/PELVIS W CONTRAST STAT 03/04/2024 5:27 PM PST COMPREHENSIVE METABOLIC PANEL ED 03/04/2024 4:55 PM PST COMPLETE BLOOD COUNT WITH AUTO DIFFERENTIAL ED 03/04/2024 4:[address] HEAD WO CONTRAST STAT 02/18/2024 5 :33 PM PST X-RAY KNEE 3 VIEWS LEFT STAT 02/18/2024 5:29 PM PST LIPID PROFILE Routine 04/23/2020 5:40 PM PDT from Last 3 Months or Most Recently Relevant to Health Maintenance Results * Troponin I Level (04/05/2024 5:13 PM PST) Only the most recent of2 resultswithin the time period is included. Troponin I <0.02 <=0.03 ng/mL [facility] Comment: 0.03 ng/mL or less: No detectable cardiac injury 0.04 to 0.49 ng/mL: Possible Cardiac muscle injury 0.50 ng/mL or greater: Myocardial infarction Serial testing is highly recommended with a Troponin of 0.04 ng/mL or greater. Blood BLOOD SPECIMEN / Unknown 04/05/2024 5:13 PM PST 04/05/2024 5:21 PM PST Comment:Line Draw Tomas Lao MD CHEMISTRY ORDERABLES Final Resul t [facility] [address] [address] * X-ray Chest 1 View Portable (04/05/2024 3:35 PM PST) Anatomical Region Laterality Modality Chest Radiographic Luann ging 04/05/2024 4:03 PM PST Narrative 04/05/2024 4:03 PM PST EXAM: CHEST RADIOGRAPHY EXAM DATE: 04/05/2024 03:35 PM CLINICAL HISTORY: Chest Pain. COMPARISON: XR CHEST 1V PORTABLE 07/24/2023 6:[address] ABDOMEN/PELVIS WITH CONTRAST 03/04/2024 5:19 PM TECHNIQUE: 1 view. FINDINGS/ IMPRESSION: Support apparatus and postsurgical changes: Left chest wall single-lead pacemaker. Cardiomediastinal silhouette: Normal in size. Vasculature: No pulmonary edema. Lungs and pleura: Lungs adequately expanded. No focal consolidation, pleural effusion, or pneumothorax. Other: None. [facility] Verified by Memo Marti MD on 2024-04-05 16:02:[id number] in the Radia dictation system. Dictated By: Memo Marti MD 2024-04-05 16:02:49.717 Signed By: Memo Marti MD 2024-04-05 16:03:50.0 Patients are advised to discuss imaging findings and recommendations with the ordering provider. SITE ID: [id number] Procedure Note Memo Marti MD - 04/05/2024 EXAM: CHEST RADIOGRAPHY EXAM DATE: 04/05/2024 03:35 PM CLINICAL HISTORY: Chest Pain. COMPARISON: XR CHEST 1V PORTABLE 07/24/2023 6:[address] ABDOMEN/PELVIS WITH CONTRAST 03/04/2024 5:19 PM TECHNIQUE: 1 view. FINDINGS/ IMPRESSION: Support apparatus and postsurgical changes: Left chest wall single-lead pacemaker. Cardiomediastinal silhouette: Normal in size. Vasculature: No pulmonary edema. Lungs and pleura: Lungs adequately expanded. No focal consolidation,pleural effusion, or pneumothorax. Other: None. [facility] Verified by Memo Marti MD on 2024-04-05 16:02:49.717 in the [employer] J[employer] Agriculturaltation system. Dictated By: Memo Marti MD 2024-04-05 16:02:49.717 Signed By: Memo Marti MD 2024-04-05 16:03:50.0 Patients are advised to discuss imaging findings and recommendations withthe ordering provider. SITE ID: [id number] Tomas Lao MD IMG DIAGNOSTIC IMAGING ORDERABLE S Final Result * CBC with Auto Differential (04/05/2024 3:01 PM PST) Only the most recent of2 resultswithin the time period is included. WBC 7.08 4.00 - 10.00 x10'3/uL [facility] RBC 5.20 4.31 - 6.40 x10'6/uL [facility] Hemoglobin 15.0 13.6 - 18.0 gm/dL [facility] Hematocrit 44.4 39.8 - 52.0 % [facility] MCV 85.4 80.0 - 97.0 fL [facility] MCH 28.8 26.0 - 34.0 pg [facility] MCHC 33.8 32.0 - 36.0 gm/dL [facility] RDW 13.3 11.5 - 15.0 % [facility] Platelet Count 289 140 - 440 x10'3/uL [facility] MPV 9.6 6.5 - 12.4 fL [facility] Auto % Neut 62.5 37.0 - 80.0 % [facility] Auto % Lymph 28.0 16.0 - 51.0 % [facility] Auto % [place] 7.3 0.0 - 12.0 % [facility] Auto % Eos 1.3 0.0 - 8.0 % [facility] Auto % Baso 0.6 0.0 - 3.0 % [facility] Auto % Imm Gran 0.3 0.0 - 1.0 % [facility] Comment:Immature granulocyte s are composed of metamyelocytes, myelocytes, and promyelocytes; bands and blasts are not included. Auto % NRBC 0.0 0.0 - 0.2 /100 WBC [facility] Auto ABS Neut 4.43 1.50 - 8.00 x10'3/uL [facility] Auto ABS Lymph 1.98 0.80 - 4.00 x10'3/uL [facility] Auto ABS [place] 0.52 0.00 - 1.20 x10'3/uL [facility] Auto ABS Eos 0.09 0.00 - 0.30 x10'3/uL [facility] Auto ABS Baso 0.04 0.00 - 0.30 x10'3/uL [facility] Auto ABS Imm Gran 0.02 0.00 - 0.10 x10'3/uL [facility] Auto ABS NRBC 0.00 0.00 - 0.01 x10'3/uL [facility] Blood BLOOD SPECIMEN / Unknown 04/05/2024 3:01 PM PST 04/05/2024 3:05 PM PST us Tomas Lao MD HEMATOLOGY ORDERABLES Final Resu lt [facility] [address] [address] * (ABNORMAL) Comprehensive Metabolic Avitia w GFR (04/05/2024 3:01 PM PST) Sodium 137 136 - 145 mmol/L [facility] Potassium 4.1 3.6 - 5.0 mmol/L [facility] Chloride 103 98 - 107 mmol/L [facility] Carbon Dioxide 23 21 - 32 mmol/L [facility] Anion Gap 11 4 - 16 mmol/L [facility] Comment: Anion Gap is a calculation based on the electrolytes in the blood. Anion Gap = (Sodium) - (Chloride + Total CO2) BUN 14 6 - 20 mg/dL [facility] Creatinine 0.92 0.70 - 1.30 mg/dL [facility] Glucose 99 74 - 99 mg/dL [facility] Comment:A normal fasting glu cose concentration is less than 100 mg/dL. An impaired fasting glucose concentration is 100-125 mg/dL. A provisional diagnosis of diabetes mellitus can be made when a fasting glucose concentration is greater than 125 mg/dL. Calcium 9.4 8.6 - 10.3 mg/dL [facility] Total Protein 7.0 6.0 - 8.3 gm/dL [facility] Albumin 4.6 3.5 - 5.0 gm/dL [facility] SGPT/ALT 39(H) 10 - 35 U/L [facility] SGOT/AST 22 14 - 50 U/L [facility] Alkaline Phosphatase 73 53 - 128 U/L [facility] Total Bilirubin 0.4 0.3 - 1.2 mg/dL [facility] eGFR CKD-EPI >60 >=60 mL/min [facility] Comment: MODIFIED eGFR EQUATION: Effective December 01, 2022, the eGFR equation has been updated to the CKD-EPI 2021 equation. For more information, please refer to the Lab Alert on the [facility] website ([email or web address]/[email or web address]). eGFR CKD-EPI Reference Range Stage of Chronic Kidney Disease (mL/min/1.73m2) >=60 Normal or subacute (None, 1, or 2) 30-59 Moderate CKD (3) 15-29 Severe CKD (4) 0-14 Kidney Failure (5) The estimated glomerular filtration rate (eGFR) is calculated by the CKD-EPI 2021 equation based on serum creatinine, age, and sex. All results are normalized to 1.73 m2 body surface area. Race is excluded in the eGFR calculation, because self-reported race is a subjective variable and no conclusive evidence supports biological differences between racial groups (N Engl J Med, 2020, 385(43): 1733). This calculation is inaccurate in patients with rapidly changing renal function. Blood BLOOD SPECIMEN / Unknown 04/05/2024 3:01 PM PST 04/05/2024 3:05 PM PST Tomas Lao MD CHEMISTRY ORDERABLES Final Resul t Performing Organization Address [facility] de Phone Number [facility] [address] [address] * D-Dimer HS (04/05/2024 3:01 PM PST) Pathologist [facility] D-Dimer Quant HS <150 0 - 229 ng/mL DDU [facility] Comment:A D-Dimer value of < 230 ng/mL D-DU is used in conjunction with a clinical pretest probability assessment to exclude VTE in outpatients suspected of DVT and PE. Any use of the age-adjusted cutoff value is a post-analytic modification of this FDA-approved test and is considered off-label use of the test result. [facility] does not have literature to support the validity of an age-adjusted cutoff for our specific assay. Blood 04/05/2024 3:01 PM PST 04/05/2024 3:05 PM PST Tomas Lao MD HEMATOLOGY ORDERABLES Final Resu lt Performing Organization Address [facility] de Phone Number [facility] [address] [address] * Lipase Level (04/05/2024 3:01 PM PST) Pathologist [facility] Lipase 13 7 - 59 U/L [facility] Blood BLOOD SPECIMEN / Unknown 04/05/2024 3:01 PM PST 04/05/2024 3:05 PM PST Tomas Lao MD CHEMISTRY ORDERABLES Final Resul t [facility] [address] [address] * EKG 12 Lead (04/05/2024 2:56 PM PST) VENT RATE 72 BPM XTERNAL EC G PROCEDURES ATRIAL RATE 72 BPM XTERNAL ECG PROCEDURES FL INTERVAL 148 ms XTERNAL ECG PROCEDURES QRS DURATION 98 ms XTERNAL ECG PROCEDURES QT INTERVAL 364 ms XTERNAL ECG PROCEDURES QTC 398 ms XTERNAL EC G PROCEDURES P AXIS -15 degrees XTERNAL EC G PROCEDURES R AXIS -9 degrees XTERNAL EC G PROCEDURES T AXIS 29 degrees XTERNAL EC G PROCEDURES 04/05/2024 2:56 PM PST 04/05/2024 4:02 PM PST Narrative XTERNAL ECG PROCEDURES - 04/05/2024 4:03 PM PST Normal sinus rhythm Minimal voltage criteria for LVH, may be normal variant ( R in aVL ) Borderline ECG When compared with ECG of 23-Apr-2020 17:20, Vent. rate has decreased by 38 bpm Non-specific change in ST segment in Lateral leads us Tomas Lao MD ECG ORDERABLES Final Result Performing Organization Address City/[facility] Co de Phone Number XTERNAL ECG PROCEDURES * MRI Knee Left WITHOUT Contrast (03/06/2024 1:54 PM PST) Anatomical Region Laterality Modality Thigh, Knee, Leg Magnetic Resona nce 03/06/2024 4:51 PM PST Narrative 03/06/2024 4:53 PM PST MRI KNEE LEFT WITHOUT CONTRAST HISTORY: derangement of left knee, eval for meniscus tear or ACL rupture COMPARISON: None. TECHNIQUE: No intravenous contrast AH0C FINDINGS: LEFT KNEE: -Cruciate ligaments: Intact -Menisci: The medial meniscus is intact. The lateral meniscus is intact. -Medial ligaments and tendons: Medial collateral ligament is intact. No abnormal pes anserine fluid. -Lateral ligaments and tendons: Fibular collateral ligament is intact. Other visualized supporting structures are intact. No abnormal fluid in the posterior lateral corner. -Extensor mechanism: Visualized portions of the quadriceps tendon and patellar tendon are intact. There is a tear of the medial patellofemoral ligament near the femur. -Muscles: Normal muscle signal -Cartilage: No focal cartilage defect. -Bone marrow: Increased signal on fluid sensitive sequences in the medial patellar exam dated the lateral femoral condyle. -Other: No joint effusion. No Motta's cyst. IMPRESSION: Transient patellar dislocation with tear of the medial patellofemoral ligament. Verified by Didier Del Rio M.D. on 03/06/2024 4:53 PM in [employer] Procedure Note Didier Del Rio MD - 03/06/2024 MRI KNEE LEFT WITHOUT CONTRAST HISTORY: derangement of left knee, eval for meniscus tear or ACL rupture COMPARISON: None. TECHNIQUE: No intravenous contrast AH0C FINDINGS: LEFT KNEE: -Cruciate ligaments: Intact -Menisci: The medial meniscus is intact. The lateral meniscus is intact. -Medial ligaments and tendons: Medial collateral ligament is intact. Noabnormal pes anserine fluid. -Lateral ligaments and tendons: Fibular collateral ligament is intact.Other visualized supporting structures are intact. No abnormal fluid in theposterior lateral corner. -Extensor mechanism: Visualized portions of the quadriceps tendon andpatellar tendon are intact. There is a tear of the medial patellofemoral ligamentnear the femur. -Muscles: Normal muscle signal -Cartilage: No focal cartilage defect. -Bone marrow: Increased signal on fluid sensitive sequences in themedial patellar exam dated the lateral femoral condyle. -Other: No joint effusion. No Motta's cyst. IMPRESSION: Transient patellar dislocation with tear of the medial patellofemoralligament. Verified by Didier Del Rio M.D. on 03/06/2024 4:53 PM in [facility]clues [facility] MRI ORDERABLES Final Resul t * (ABNORMAL) UA W Microscopic C/S if Indicated (03/04/2024 5:51 PM PST) UA Color Yellow Yellow [facility] Turbidity Clear Clear [facility] Glucose Negative Negative [facility]A Bilirubin Negative Negative [facility] UA Ketones Negative Negative [facility] UA Specific [place] 1.010 <1.030 [facility] UA Blood 3+(A) Negative [facility] UA pH 6.0 5.0 - 8.0 [facility] UA Albumin Negative Negative [facility] Leukocyte Esterase Negative Negative [facility] Nitrite Negative Negative [facility]A WBC/hpf Negative 0 - 5 /hpf [facility] UA RBC/HPF 50-100(A) 0 - 3 /hpf [facility]A Bacteria Negative Negative /hpf [facility]A Epithelial Cell Negative Neg-Few /hpf [facility] UA Cult Reflex? No [facility] Urine URINE SPECIMEN / Unknown 03/04/2024 5:51 PM PST 03/04/2024 5:57 PM PST us Tiki Stovall PA-C URINE ORDERABLES Final Res ult [facility] [address] [address] * CT Abdomen/Pelvis with Contrast (03/04/2024 5:27 PM PST) Anatomical Region Laterality Modality Abdomen, Pelvis, Hip Computed To mography 03/04/2024 5:32 PM PST Narrative 03/04/2024 5:36 PM PST Procedure: CT ABDOMEN/PELVIS WITH CONTRAST dated 03/04/2024 5:27 PM Indications: RLQ pain, post appendectomy Comparison: Comparison CT scan dated April 13, 2023 Technique: Using a multidetector scanner contiguous 2.5 mm axial images were acquired through the abdomen and pelvis following the intravenous administration of low-osmolar, nonionic intravenous Isovue 370. Multiplanar reformations were generated using axial data. This examination was performed with automatic exposure control in order to keep patient radiation exposure to a minimum. Findings: Abdomen CT: Lung: The visualized portions of the lower lung mark are unremarkable. Liver/Bile Ducts: Normal in size and appearance. No mass appreciated. No ductal dilatation. Gallbladder: The gallbladder appears to have been surgically removed. Spleen: Normal in size and appearance. Pancreas: Normal in size. No mass appreciated. Adrenals: No masses present. Kidneys: Normal in size. No mass identified. No hydronephrosis. There are no renal stones and the ureters are decompressed and appear unremarkable. Aorta/Vascular: No evidence of aneurysm. Retroperitoneum: No enlarged lymph nodes. Abdominal Wall: Unremarkable. Bones: Unremarkable. Other: Negative. Pelvic CT: Bowel/Mesentery: Normal caliber bowel loops. No inflammatory process identified. The appendix is been surgically removed. Pelvic Nodes: No enlarged lymph nodes. Pelvic Organs: Small hypoechoic lesion within the prostate again demonstrated measuring approximately 13 mm in today's examination. Bladder: Unremarkable. Bones: Unremarkable. Other: Negative. Conclusion: There are no acute inflammatory changes within the abdomen or pelvis. Previous cholecystectomy and appendectomy. Hypoechoic lesion within the central prostate slightly smaller when compared to the prior CT scan. Verified by Max Silverio on 03/04/2024 5:36 PM in [employer] 360 Procedure Note Max Silverio MD - 03/04/2024 Procedure: CT ABDOMEN/PELVIS WITH CONTRAST dated 03/04/2024 5:27 PM Indications: RLQ pain, post appendectomy Comparison: Comparison CT scan dated April 13, 2023 Technique: Using a multidetector scanner contiguous 2.5 mm axial imageswere acquired through the abdomen and pelvis following the intravenousadministration of low-osmolar, nonionic intravenous Isovue 370. Multiplanar reformationswere generated using axial data. This examination was performed withautomatic exposure control in order to keep patient radiation exposure to aminimum. Findings: Abdomen CT: Lung: The visualized portions of the lower lung mark are unremarkable. Liver/Bile Ducts: Normal in size and appearance. No mass appreciated.No ductal dilatation. Gallbladder: The gallbladder appears to have been surgically removed. Spleen: Normal in size and appearance. Pancreas: Normal in size. No mass appreciated. Adrenals: No masses present. Kidneys: Normal in size. No mass identified. No hydronephrosis. Thereare no renal stones and the ureters are decompressed and appear unremarkable. Aorta/Vascular: No evidence of aneurysm. Retroperitoneum: No enlarged lymph nodes. Abdominal Wall: Unremarkable. Bones: Unremarkable. Other: Negative. Pelvic CT: Bowel/Mesentery: Normal caliber bowel loops. No inflammatory process identified. The appendix is been surgically removed. Pelvic Nodes: No enlarged lymph nodes. Pelvic Organs: Small hypoechoic lesion within the prostate againdemonstrated measuring approximately 13 mm in today's examination. Bladder: Unremarkable. Bones: Unremarkable. Other: Negative. Conclusion: There are no acute inflammatory changes within the abdomen or pelvis. Previous cholecystectomy and appendectomy. Hypoechoic lesion within the central prostate slightly smaller whencompared to the prior CT scan. Verified by Max Silverio on 03/04/2024 5:36 PM in [employer] us Tiki Stovall PA-C IMG CT ORDERABLES Final Re sult * Comprehensive Metabolic Panel (03/04/2024 4:55 PM PST) Sodium 139 136 - 145 mmol/L [facility] Potassium 4.3 3.6 - 5.0 mmol/L [facility] Chloride 103 98 - 107 mmol/L [facility] MERS[facility] Carbon Dioxide 28 21 - 32 mmol/L [facility] Anion Gap 8 4 - 16 mmol/L [facility] Comment: Anion Gap is a calculation based on the electrolytes in the blood. Anion Gap = (Sodium) - (Chloride + Total CO2) BUN 15 6 - 20 mg/dL [facility] Creatinine 0.88 0.70 - 1.30 mg/dL [facility] Glucose 93 74 - 99 mg/dL [facility] Comment:A normal fasting glu cose concentration is less than 100 mg/dL. An impaired fasting glucose concentration is 100-125 mg/dL. A provisional diagnosis of diabetes mellitus can be made when a fasting glucose concentration is greater than 125 mg/dL. Calcium 10.0 8.6 - 10.3 mg/dL [facility] Total Protein 7.1 6.0 - 8.3 gm/dL [facility] Albumin 4.7 3.5 - 5.0 gm/dL [facility] SGPT/ALT 28 10 - 35 U/L [facility] SGOT/AST 20 14 - 50 U/L [facility] Alkaline Phosphatase 71 53 - 128 U/L [facility] Total Bilirubin 0.5 0.3 - 1.2 mg/dL [facility] Blood BLOOD SPECIMEN / Unknown 03/04/2024 4:55 PM PST 03/04/2024 5:24 PM PST us Tiki Stovall PA-C CHEMISTRY ORDERABLES Final Result ILIA GODDARD [id number] [id number] * CT Head WITHOUT Contrast (02/18/2024 5:33 PM PST) Anatomical Region Laterality Modality Head Computed Tomogra phy 02/18/2024 5:40 PM PST Narrative 02/18/2024 5:[address] HEAD WITHOUT CONTRAST dated 02/18/2024 5:33 PM CLINICAL HISTORY: Head trauma, minor COMPARISON: None. TECHNIQUE: A noncontrast CT of the brain was performed. Axial sections with reconstructed coronal and sagittal images were obtained. This examination was performed with automated exposure control in order to keep patient radiation exposure to a minimum. FINDINGS: Brain: No acute hemorrhage, acute large vascular territorial infarct, hydrocephalus, or mass. Calvarium: No fractures or destructive lesions. Visualized paranasal sinuses: Visualized portions are unremarkable.. Soft tissues: Unremarkable. IMPRESSION: No CT evidence of acute intracranial abnormality. Verified by Lenny Amor M.D. on 02/18/2024 5:37 PM in [employer] 360 Procedure Note Lenny Amor MD - 02/18/2024 CT HEAD WITHOUT CONTRAST dated 02/18/2024 5:33 PM CLINICAL HISTORY: Head trauma, minor COMPARISON: None. TECHNIQUE: A noncontrast CT of the brain was performed. Axial sectionswith reconstructed coronal and sagittal images were obtained. This examinationwas performed with automated exposure control in order to keep patientradiation exposure to a minimum. FINDINGS: Brain: No acute hemorrhage, acute large vascular territorial infarct, hydrocephalus, or mass. Calvarium: No fractures or destructive lesions. Visualized paranasal sinuses: Visualized portions are unremarkable.. Soft tissues: Unremarkable. IMPRESSION: No CT evidence of acute intracranial abnormality. Verified by Lenny Amor M.D. on 02/18/2024 5:37 PM in [id number] us Dusty Mojica MD [facility] [place] ORDERABLES Final Result * X-ray Knee 3 Views Left (02/18/2024 5:29 PM PST) Anatomical Region Laterality Modality Thigh, Knee, Leg Radiographic Im aging 02/18/2024 5:31 PM PST Narrative 02/18/2024 5:32 PM PST X-RAY KNEE 3 VIEWS LEFT dated 02/18/2024 5:29 PM CLINICAL HISTORY: Pain, trauma. COMPARISON: None. PROCEDURE COMMENTS: 3 views of the left knee FINDINGS: No acute fracture or malalignment. Joint spaces are maintained. Large joint effusion. Soft tissues are unremarkable. IMPRESSION: 1. No acute fracture or malalignment. 2. Large joint effusion. Consider outpatient MRI if there is concern for internal derangement. Verified by Lenny Amor M.D. on 02/18/2024 5:32 PM in [employer] 360 Procedure Note Lenny Amor MD - 02/18/2024 X-RAY KNEE 3 VIEWS LEFT dated 02/18/2024 5:29 PM CLINICAL HISTORY: Pain, trauma. COMPARISON: None. PROCEDURE COMMENTS: 3 views of the left knee FINDINGS: No acute fracture or malalignment. Joint spaces are maintained. Largejoint effusion. Soft tissues are unremarkable. IMPRESSION: 1. No acute fracture or malalignment. 2. Large joint effusion. Consider outpatient MRI if there is concernfor internal derangement. Verified by Lenny Amor M.D. on 02/18/2024 5:32 PM in [id number] Dusty Mojica MD [facility] [place] DIAGNOSTIC IMAGING ORDERABL ES Final Result * (ABNORMAL) Lipid Panel (04/23/2020 5:40 PM PDT) Cholesterol 155 108 - 199 mg/dL [facility] Triglyceride 112 26 - 149 mg/dL [facility] Chol/HDL Ratio 4.1 0.0 - 5.0 [facility] HDL 38(L) 40 - 125 mg/dL [facility] LDL 95 0 - 99 mg/dL [facility] Comment:LDL calculated using Freidewald Equation.For complete Cardiac Risk guidelines, refer to the [facility] Test Table or the website at www.[email or web address].org. Blood specimen (specimen) BLOOD SPECIMEN / Unknown 04/23/2020 5:40 PM PDT 04/24/2020 2:29 AM PDT us Talita Acosta MD CHEMISTRY ORDERABLES Final Result [facility] [address] [place] [address] from Last 3 Months or Most Recently Relevant to Health Maintenance Insurance [facility] Advance Directives Documents on File Type Date Recorded Patient Manufacturing Advisor Expl anation Advance/Healthcare Directive 04/05/2024 5:38 PM Advance/Healthcare Directive 02/18/2024 8:39 PM Advance/Healthcare Directive (Vynca) 02/17/2017 * Full Code (Latest Code Status on File) Date Activated Date Inactivated Comments 04/23/2020 10:31 PM 04/24/2020 12:41 PM * Full Code Date Activated Date Inactivated Comments 03/04/2019 8:19 PM 03/05/2019 7:55 PM * Full Code Date Activated Date Inactivated Comments 02/18/2017 1:16 AM 02/18/2017 5:26 AM Care Teams Automation And Controls Instructor Relationship Specialty Start Date End Date None Per Patient, None Per Pt PCP - General 08/16/23 Greta Ware RN,MSN,PMHNP Nurse Practitioner 03/22/19
--- OUTSIDE RECORDS SUMMARY | 2024-04-19 21:42 | XMS_ITS | Encounter Summary ---
Author Organization [facility] Address [address] [place] [address] Phone Care Team Providers Care Crew Lead Name Role Phone No Pcp Per Patient Primary Care Provider Unavail able Reason for Visit * Reason Onset Date Comments Referral 03/05/2024 Left knee Encounter Details Date Type Department Care Team (Late st Contact Info) Description 03/05/2024 Abstract Orthopaedics Faculty at [facility] [address] [facility] [place] [address] Note, Orthopedics Clinic Referral (Left knee ) Social History Tobacco Use Types Packs/Day Years Used Date Smoking Tobacco: Never Smokeless Tobacco: Never Alcohol Use Standard Drinks/Week Comments Yes 0 (1 standard drink = 0.6 oz pure alcohol) 1-2 drinks (mix cocktail) every week PHQ-2 Answer Date Recorded Total 0 05/21/2023 Sex and Gender Information Value Date Recorded [...] Diagnoses Not on filedocumented in this encounter Additional Health Concerns Assessment Noted Time PHQ-2 Depression Total Score: 0 05/21/19 24 6:33 PM PDT documented as of this encounter Care Teams Crew Lead Relationship Specialty Start Date End Date No Pcp Per Patient NO PCP PER PATIENT PCP - General 04/14/19 documented as of this encounter
--- OUTSIDE RECORDS SUMMARY | 2024-04-19 21:42 | XMS_ITS | Encounter Summary ---
Author Organization [facility] Address [address] [place] [address] Phone Care Team Providers Care Money Examiner Name Role Phone No Pcp Per Patient Primary Care Provider Unavail able Encounter Details Date Type Department Care Team (Late st Contact Info) Description 05/01/2020 Abstract Cardiology at [facility] [address] [facility] [place] [address] Neto Stevenson MD [address] [place] [address] Social History Tobacco Use Types Packs/Day Years Used Date Smoking Tobacco: Never Smokeless Tobacco: Never Alcohol Use Standard Drinks/Week Comments Yes 0 (1 standard drink = 0.6 oz pure alcohol) 1-2 drinks (mix cocktail) every two weeks PHQ-2 Answer Date Recorded Total 0 11/10/2019 Sex and Gender Information Value Date Recorded [...] Noted Time PHQ-2 Depression Total Score: 0 11/10/19 20 3:53 AM PDT documented as of this encounter Care Teams Money Examiner Relationship Specialty Start Date End Date No Pcp Per Patient NO PCP PER PATIENT PCP - General 04/14/19 documented as of this encounter
--- OUTSIDE RECORDS SUMMARY | 2024-04-19 21:42 | XMS_ITS | CCD ---
Author Name Interface, [id number] Address [address] [place] [address] Organization [facility] Address [address] [place] [address] Care Team Providers Care Package Wrapper Name Role Phone Kelechi Cabrales Unavailable Unavailable Care Plan Reason for Visit Encounters Functional Status Medications Problems Social History
--- OUTSIDE RECORDS SUMMARY | 2024-04-19 21:42 | XMS_ITS | Clinical Summary ---
Author Organization [facility] Address [address] [address] Care Team Providers Care Hunting And Fishing Guide Name Role Phone Unavailable Primary Care Provider Unavailabl e Allergies Active Allergy Reactions Criticality Noted Date Comments Mirtazapine Other (See Comments) 09/26/2016 Tachycardia Penicillins Hives Medium 09/26/2016 Medications amLODIPine (NORVASC) 2.5 MG tablet Take 2.5 mg by mouth nightly Active metoprolol succinate (TOPROL-XL) 100 MG 24 hr tablet Take 100 mg by mouth every morning Active fluticasone-tono meterol (ADVAIR) 100-50 mcg/dose diskus inhaler Inhale 1 puff into the lungs Twice a day Active nitroGLYCERIN (NITROSTAT) 0.[address] 0.4 mg under the tongue every 5 (five) minutes as needed Active atorvastatin (LIPITOR) 80 MG tablet Take 80 mg by mouth every evening Active ARIPiprazole (ABILIFY) 20 MG tablet Take 20 mg by mouth At bedtime Active aspirin 81 MG enteric coated tablet Take 81 mg by mouth daily Active loratadine (CLARITIN) 10 mg tablet Take 10 mg by mouth daily as needed for Allergies Active colestipol (COLESTID) 1 gram tablet Take 2 g by mouth Daily at Noon (12:00pm) Active dexlansoprazole (DEXILANT) 60 mg capsule Take 60 mg by mouth daily Active Active Problems Problem Noted Date Diagnosed Date Angina at rest 09/26/2016 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 09/26/2016 S/P CABG x 1 09/26/2016 Essential hypertension 09/26/2016 Family History Medical History Relation Comments Diabetes Mother Relation Status Comments Mother Social History Tobacco Use Types Packs/Day Years Used Date Smoking Tobacco: Never Smokeless Tobacco: Never Alcohol Use Standard Drinks/Week Comments No 0 (1 standard drink = 0.6 oz pur e alcohol) Sex and Gender Information Value Date Recorded Sex Assigned at Not on file Legal Sex Male 1:54 PM PDT Gender Identity Not on file Sexual Orientation Not on file Last Filed Vital Signs Vital Sign Reading Time Taken Comments Blood Pressure 99/67 07/24/2023 9:00 PM PDT Pulse 73 07/24/2023 9:00 PM PDT Temperature 36.6 C (97.9 F) 07/24/2023 6:19 PM PDT Respiratory Rate 19 07/24/2023 9:00 PM PDT Oxygen Saturation 92% 07/24/2023 9:00 PM PDT Inhaled Oxygen Concentration - - Weight 110.8 kg (244 lb 4.3 oz) 07/24/2023 6:19 PM PDT Height 172.7 cm (5' 8 ) 07/24/2023 6:19 PM PDT Body Mass Index 37.14 07/24/2023 6:19 PM PDT Plan of Treatment Health Maintenance Due Date Last Done Comments Disability Screening 1996 Hepatitis C Screening 1996 HIV Screening 12/26/2011 Covid-19 Vaccine ( - 2023-2 5 season) 2023 Influenza Vaccine (#1) 2023 , 11/22/2019, 11/24/2018, Additional history exists Drug, Alcohol, and Depressio n Screening 02/08/2024 SOGIE 02/08/2024 Basic Metabolic Panel 07/23/2024 07/24/2023 , 09/26/2016, 09/26/2016 DTaP/Tdap/Td Vaccine (12 - T d or Tdap) 11/24/2028 11/24/2018, 07/11/2017, 04/27/2015, Additional history exists Pneumococcal Ages 0-5 Years and At Risk Patients Ages 6-49 Years (3 of 3 - PCV20 or PCV21) 2046 03/10/2016, 05/28/2015, 05/09/2015 RSV Vaccines (1 - 1-dose 75+ series) 12/26/2071 Varicella Vaccine Completed 04/19/2012, 01/21/1998 HPV Vaccine Completed 03/21/2013, 10/10/2012, 09/12/2012 Procedures Procedure Name Priority Date/Time Associated Diagnosis Comments BASIC METABOLIC PANEL STAT 07/24/2023 6:21 PM PDT from Last 3 Months or Most Recently Relevant to Health Maintenance Results * Basic Metabolic Panel (07/24/2023 6:21 PM PDT) Sodium 139 136 - 145 mmol/L 07/24/2023 7:10 PM PDT [facility] Potassium 4.0 3.5 - 5.1 mmol/L 07/24/2023 7:10 PM PDT [facility] Comment:Specimen hemolyzed. Results may be falsely increased. Chloride 103 98 - 111 mmol/L 07/24/2023 7:10 PM PDT [facility] CO2 26 21 - 32 mmol/L 07/24/2023 7:10 PM PDT [facility] Anion Gap 10 3 - 15 mmol/L 07/24/2023 7:10 PM PDT [facility] Glucose 86 70 - 99 mg/dL 07/24/2023 7:10 PM PDT [facility] BUN 10 9 - 23 mg/dL 07/24/2023 7:10 PM PDT [facility] Creatinine 1.05 0.70 - 1.30 mg/dL 07/24/2023 7:10 PM PDT [facility] eGFR (CKD-EPI 2020) 100 >=60 mL/min/1.7 3m2 07/24/2023 7:10 PM PDT [facility] Calcium 10.1 8.7 - 10.4 mg/dL 07/24/2023 7:10 PM PDT [facility] Blood Venipuncture / Unknown 07/24/2023 6:21 PM PDT 07/24/2023 6:40 PM PDT us Brandon Rasmussen MD LAB BLOOD ORDERABLES Final Re sult [facility] [address] [place] [address] from Last 3 Months or Most Recently Relevant to Health Maintenance Insurance [facility] PPO Advance Directives * Full Code (Latest Code Status on File) Date Activated Date Inactivated Comments 09/26/2016 4:51 AM 09/26/2016 4:21 PM
--- OUTSIDE RECORDS SUMMARY | 2024-04-19 21:42 | XMS_ITS | Encounter Summary ---
Author Organization [facility] Address [address] [place] [address] Phone Care Team Providers Care Skatesman Name Role Phone No Pcp Per Patient Primary Care Provider Unavail able Encounter Details Date Type Department Care Team (Late st Contact Info) Description 05/23/2018 Pharmacy Visit [facility] [address] Mailcode: [facility], [address] [place] [address] Social History Tobacco Use Types Packs/Day Years [...] on filedocumented in this encounter Care Teams Skatesman Relationship Specialty Start Date End Date No Pcp Per Patient NO PCP PER PATIENT PCP - General 04/14/19 documented as of this encounter
--- OUTSIDE RECORDS SUMMARY | 2024-04-19 21:42 | XMS_ITS | Encounter Summary ---
Author Organization [facility] Address [address] [place] [address] Phone Care Team Providers Care Timber Spotter Name Role Phone No Pcp Per Patient Primary Care Provider Unavail able Encounter Details Date Type Department Care Team (Late st Contact Info) Description 06/13/2018 Pharmacy Visit [facility] [address] Mailcode: [facility], [address] [place] [address] Social History Tobacco Use Types [...] on filedocumented in this encounter Care Teams Timber Spotter Relationship Specialty Start Date End Date No Pcp Per Patient NO PCP PER PATIENT PCP - General 04/14/19 documented as of this encounter
--- OUTSIDE RECORDS SUMMARY | 2024-04-19 21:42 | XMS_ITS | Encounter Summary ---
Author Organization [facility] Address [address] [place] [address] Phone Care Team Providers Care Assembler Small Products Name Role Phone No Pcp Per Patient Primary Care Provider Unavail able Encounter Details Date Type Department Care Team (Late st Contact Info) Description 09/12/2017 Outside Records UNKNOWN DEPARTMENT [address] [place] [address] Other, Faculty Social History Tobacco Use Types Packs/Day Years [...] on file documented as of this encounter Procedures Procedure Name Priority Date/Time Associated Diagnosis Comments OUTSIDE RADIOLOGY - CT 09/12/2017 12:00 AM PDT documented in this encounter Results * OUTSIDE RADIOLOGY - CT (09/12/2017 12:00 AM PDT) us Faculty Other STEAM CONDITIONING OPERATOR INTERFACED REPORTS EC Final Result documented in this encounter Visit Diagnoses Not on filedocumented in this encounter Care Teams Assembler Small Products Relationship Specialty Start Date End Date No Pcp Per Patient NO PCP PER PATIENT PCP - General 04/14/19 documented as of this encounter
--- OUTSIDE RECORDS SUMMARY | 2024-04-19 21:42 | XMS_ITS | Encounter Summary ---
Author Organization [facility] Address [address] [place] [address] Phone Care Team Providers Care Safety And Health Manager Name Role Phone No Pcp Per Patient Primary Care Provider Unavail able Reason for Visit * Reason Onset Date Comments Blood pressure 12/08/2018 change in BP med ication Encounter Details Date Type Department Care Team (Late st Contact Info) Description 12/08/2018 Telephone Cardiology at [facility] [address] , [place] [address] Neto Stevenson MD [address] [place] [address] Blood pressure (change in BP medication) Social History Tobacco Use Types Packs/Day Years [...] PDT Activ e documented in this encounter Miscellaneous Notes * Telephone Encounter - Siomara Villeda MA - 12/08/2018 4:16 PM PDT Pt would like to change his Coreg medication to candesartan instead. 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 Pt says he can be contacted via [facility] if wehave further questions. * Telephone Encounter - Madeleine Carrasquillo - 12/08/2018 1:15 PM PDT MEDICATION QUESTION: NOT FOR STAND-ALONE REFILLS Person calling: Pt What is the question: Pt called reporting that he would like to discuss changing his BP medication.Pls call Name of Medication(s): New med ~~~ ROUTE TO APPROPRIATE CAR MED REFILL POOL ~~~ documented in this encounter Plan of Treatment Not on file documented as of this encounter Visit Diagnoses Not on filedocumented in this encounter Care Teams Safety And Health Manager Relationship Specialty Start Date End Date No Pcp Per Patient NO PCP PER PATIENT PCP - General 04/14/19 documented as of this encounter
--- OUTSIDE RECORDS SUMMARY | 2024-04-19 21:42 | XMS_ITS | Encounter Summary ---
Author Organization [facility] Address [address] [place] [address] Phone Care Team Providers Care Manager User Interface Name Role Phone No Pcp Per Patient Primary Care Provider Unavail able Reason for Visit * Reason Onset Date Comments Appointment 04/29/2020 Open appointment Encounter Details Date Type Department Care Team (Late st Contact Info) Description 04/29/2020 Telephone Cardiology at [facility], [facility] [address] [facility] , [place] [address] Neto Stevenson MD [address] [place] [address] Appointment (Open appointment) Social History Tobacco Use Types Packs/Day Years [...] encounter Miscellaneous Notes * Telephone Encounter - Estrellita Diaz - 04/29/2020 10:27 AM PDT PATIENT QUESTION/CONCERN Person calling: Cedric What is the question/concern: Calling to see if there were any openings available earlier than his 05/[address] Stevenson. Advised nothing sooner, but he is on the wait list for cancellations. Okay to send MyChart Response? na If page indicated, person paged: na ~~~ ROUTE TO APPROPRIATE CAR NURSE POOL ~~~ ~~~ IF NURSE PAGED, ROUTE HIGH PRIORITY ~~~ ~~~For patients who were only seen in the hospital and do not yet have an appointment in our clinic, route to the allergy and immunology chief of the discharging sheet metal layout mechanic. See discharge summary for information~~~ documented in this encounter Plan of Treatment Not on file documented as of this encounter Visit Diagnoses Not on filedocumented in this encounter Additional Health Concerns Assessment Noted Time PHQ-2 Depression Total Score: 0 11/10/19 20 3:53 AM PDT documented as of this encounter Care Teams Manager User Interface Relationship Specialty Start Date End Date No Pcp Per Patient NO PCP PER PATIENT PCP - General 04/14/19 documented as of this encounter
--- OUTSIDE RECORDS SUMMARY | 2024-04-19 21:42 | XMS_ITS | Encounter Summary ---
Author Organization [facility] Address [facility] [address] Care Team Providers Care Church Warden Name Role Phone Unavailable Primary Care Provider Unavailabl e Encounter Details Date Type Department Care Team (Late st Contact Info) Description 09/21/2019 Scanned Document SCANNED ONLY Scanned, Document Social History Tobacco Use Types Packs/Day Years Used Date Smoking Tobacco: Never Smokeless Tobacco: Never Alcohol Use Standard Drinks/Week Comments No 0 (1 standard drink = 0.6 oz pur e alcohol) Sex and Gender Information Value Date Recorded Sex Assigned at Not on file Legal Sex Male 1:54 PM PDT Gender Identity Not on file Sexual Orientation Not on file documented as of this encounter Plan of Treatment Not on file documented as of this encounter Visit Diagnoses Not on filedocumented in this encounter
--- OUTSIDE RECORDS SUMMARY | 2024-04-19 21:42 | XMS_ITS | Encounter Summary ---
Author Organization [facility] Address [address] [place] [address] Phone Care Team Providers Care Barrel Tester Name Role Phone No Pcp Per Patient Primary Care Provider Unavail able Encounter Details Date Type Department Care Team (Late st Contact Info) Description 07/06/2016 Pharmacy Visit [facility] [address] Mailcode: [facility], [address] [place] [address] Social History Tobacco Use Types [...] on filedocumented in this encounter Care Teams Barrel Tester Relationship Specialty Start Date End Date No Pcp Per Patient NO PCP PER PATIENT PCP - General 04/14/19 documented as of this encounter
--- OUTSIDE RECORDS SUMMARY | 2024-04-19 21:42 | XMS_ITS | Encounter Summary ---
Author Organization [facility] Address [address] [place] [address] Phone Care Team Providers Care Brazer Repair [employer] Salvage Name Role Phone No Pcp Per Patient Primary Care Provider Unavail able Encounter Details Date Type Department Care Team (Late st Contact Info) Description 12/27/2017 Telephone Cardiology [facility] at [facility], [facility] [address] [place] [address] & [facility] [place] [address] Liza Justice, BLANCA Social History Tobacco Use Types Packs/Day Years [...] encounter Miscellaneous Notes * Telephone Encounter - Daysi Rodriguez - 12/27/2017 1:50 PM PST PATIENT QUESTION/CONCERN Person calling: [employer] What is the question/concern: Requested records; received them, but Liza Justice's signature was cut off. Reference # [id number] Okay to send MyChart Response? no If page indicated, person paged: ~~~ ROUTE TO APPROPRIATE CAR NURSE POOL ~~~ ~~~ IF NURSE PAGED, ROUTE HIGH PRIORITY ~~~ ~~~For patients who were only seen in the hospital and do not yet have an appointment in our clinic, route to the pharmacy helper of the discharging wet wheeler. See discharge summary for information~~~ documented in this encounter Plan of Treatment Not on file documented as of this encounter Visit Diagnoses Not on filedocumented in this encounter Care Teams [employer] Relationship Specialty Start Date End Date No Pcp Per Patient NO PCP PER PATIENT PCP - General 04/14/19 documented as of this encounter
--- OUTSIDE RECORDS SUMMARY | 2024-04-19 21:42 | XMS_ITS | Referral Summary ---
Author Organization [facility] Address [address] [place] [address] Care Team Providers Care Sex Offender Treatment Professional Name Role Phone None Per Patient, None Per Pt Primary Care Provi aliyah Unavailable Encounters Date Type Department Care Team Description 04/05/2024 Travel 04/05/2024 2:53 PM PST - 04/05/2024 6:37 PM [facility] Emergency [facility] Emergency Department [address] [place] [address] Tomas Lao MD Chest pain, unspecified type (Primary Dx) Discharge Disposition: *Disch to Home or Self Care 03/06/2024 1:00 PM PST - 03/06/2024 11:59 PM [facility] [address] [place] [address] Zulma Garcia PA Derangement of left knee Discharge Disposition: *Disch to Home or Self Care 03/04/2024 Travel 03/04/2024 4:52 PM PST - 03/04/2024 6:36 PM [facility] Emergency [facility] Emergency Department [address] [place] [address] Right lower quadrant abdominal pain (Primary Dx) Discharge Disposition: *Disch to Home or Self Care 02/18/2024 Travel 02/18/2024 7:26 PM PST - 02/18/2024 8:43 PM [facility] Emergency [facility] Emergency Department [address] [place] [address] Injury of left knee, initial encounter (Primary Dx); Traumatic injury of head, initial encounter Discharge Disposition: *Disch to Home or Self Care from Last 3 Months Allergies Active Allergy Reactions Criticality Noted Date [...] Date Inappropriate sinus tachycardia (HHS/HCC) 03/04/2019 04/24/2020 Immunizations Name Administration Dates Next Due Bexsero [...] 13 05/28/2015,05/28/2015 Tdap 11/24/2018, 8,04/27/2015,03/09,10/25/2011 Varicella 04/19/2012,01/21/1998 Social History Tobacco Use Types Packs/Day Years [...] 04/06/2023 6:28 AM PST Plan of Treatment Not on file Goals Goal Patient Goal Type Associated Problems Recent Progress Patient-Stated? Author All members of patient's care team will be identified General No Kristyn Parker RN Medical Devices Implanted Type Area Heel Attacher Device Identifier Shelf Expiration Date Model / Serial / Lot Leads Pacemakers/Defib rillators Imp (36 300)-11/09/2021 Implanted:2021 (Quantity not on file) Leads Pacemakers/De fibrillators IMP (36 300) [employer] / [id number] / Description:MR CONDITIONAL f or 1.5T and 3T for normal operating mode per [employer] website lookup: https://mri.rosa.net/ Pacer MODEL [id number] SERIAL [id number] SINGLE LEAD RT MODEL [id number] SERIAL [id number] 02/26/24 Pacemaker Inernal Imp (36 000)-11/09/2021 Implanted:2021 (Quantity not on file) Pacemaker Inernal IMP (36 000) [employer] [id number] / [id number] / Description:MR CONDITIONAL f or 1.5T and 3T for normal operating mode per [employer] website lookup: https://mri.Algotochip.net/ Pacer MODEL [id number] SERIAL [id number] SINGLE LEAD RT MODEL [id number] SERIAL [id number] 02/26/24 Procedures Procedure Name Priority Date/Time Associated [...] included. Troponin I <0.02 <=0.03 ng/mL [facility] Comment: 0.03 ng/mL or less: No detectable cardiac injury 0.04 to 0.49 ng/mL: Possible Cardiac muscle injury 0.50 ng/mL or greater: Myocardial infarction Serial testing is highly recommended with a Troponin of 0.04 ng/mL or greater. Blood BLOOD SPECIMEN / Unknown 04/05/2024 5:13 PM PST 04/05/2024 5:21 PM PST Comment:Line Draw us Tomas Lao MD CHEMISTRY ORDERABLES Final Resul t [facility] [address] [address] * X-ray Chest 1 View Portable (04/05/2024 [...] Marti MD on 2024-04-05 16:02:49.717 in the Radiadictation system. Dictated By: Memo Marti MD 2024-04-05 16:02:49.717 Signed By: Memo Marti MD 2024-04-05 16:03:50.0 Patients are advised to discuss imaging findings and recommendations withthe ordering provider. SITE ID: [id number] Tomas Lao MD [facility] ORDERABLE S Final Result * CBC with Auto Differential (04/05/2024 3:01 PM [facility]) Only the most recent of2 resultswithin the time period is included. WBC 7.08 4.00 - 10.00 x10'3/uL [facility] RBC 5.20 4.31 - 6.40 x10'6/uL [facility] Hemoglobin 15.0 13.6 - 18.0 gm/dL [facility] Hematocrit 44.4 39.8 - 52.0 % [facility] MCV 85.4 80.0 - 97.0 fL [facility] MCH 28.8 26.0 - 34.0 pg [facility] MCHC 33.8 32.0 - 36.0 gm/dL [facility] RDW 13.3 11.5 - 15.0 % [facility] Platelet Count 289 140 - 440 x10'3/uL [facility] MPV 9.6 6.5 - 12.4 fL [facility] Auto % Neut 62.5 37.0 - 80.0 % [facility] Auto % Lymph 28.0 16.0 - 51.0 % [facility] Auto % [place] 7.3 0.0 - 12.0 % [facility] Auto % Eos 1.3 0.0 - 8.0 % [facility] Auto % Baso 0.6 0.0 - 3.0 % [facility] Auto % Imm Gran 0.3 0.0 - 1.0 % [facility] Comment:Immature granulocyte s are composed of metamyelocytes, myelocytes, and promyelocytes; bands and blasts are not included. Auto % NRBC 0.0 0.0 - 0.2 /100 WBC [facility] Auto ABS Neut 4.43 1.50 - 8.00 x10'3/uL [facility] Auto ABS Lymph 1.98 0.80 - 4.00 x10'3/uL [facility] Auto ABS [place] 0.52 0.00 - 1.20 x10'3/uL [facility] Auto ABS Eos 0.09 0.00 - 0.30 x10'3/uL [facility] Auto ABS Baso 0.04 0.00 - 0.30 x10'3/uL [facility] Auto ABS Imm Gran 0.02 0.00 - 0.10 x10'3/uL [facility] Auto ABS NRBC 0.00 0.00 - 0.01 x10'3/uL [facility] Blood BLOOD SPECIMEN / Unknown 04/05/2024 3:01 PM PST 04/05/2024 3:05 PM PST us Tomas Lao MD HEMATOLOGY ORDERABLES Final Resu lt [facility] [address] [address] * (ABNORMAL) Comprehensive Metabolic Avitia w GFR (04/05/2024 3:01 PM PST) Sodium 137 136 - 145 mmol/L [facility] Potassium 4.1 3.6 - 5.0 mmol/L [facility] Chloride 103 98 - 107 mmol/L [facility] Carbon Dioxide 23 21 - 32 mmol/L [facility] Anion Gap 11 4 - 16 mmol/L [facility] Comment: Anion Gap is a calculation based on the electrolytes in the blood. Anion Gap = (Sodium) - (Chloride + Total CO2) BUN 14 6 - 20 mg/dL [facility] Creatinine 0.92 0.70 - 1.30 mg/dL [facility] Glucose 99 74 - 99 mg/dL [facility] Comment:A normal fasting glu cose concentration is less than 100 mg/dL. An impaired fasting glucose concentration is 100-125 mg/dL. A provisional diagnosis of diabetes mellitus can be made when a fasting glucose concentration is greater than 125 mg/dL. Calcium 9.4 8.6 - 10.3 mg/dL [facility] Total Protein 7.0 6.0 - 8.3 gm/dL [facility] Albumin 4.6 3.5 - 5.0 gm/dL [facility] SGPT/ALT 39(H) 10 - 35 U/L [facility] SGOT/AST 22 14 - 50 U/L [facility] Alkaline Phosphatase 73 53 - 128 U/L [facility] Total Bilirubin 0.4 0.3 - 1.2 mg/dL [facility] eGFR CKD-EPI >60 >=60 mL/min [facility] Comment: MODIFIED eGFR EQUATION: Effective December 01, 2022, the eGFR equation has been updated to the CKD-EPI 2020 equation. For more information, please refer to the Lab Alert on the [facility] website (https://[email or web address]/legacylab). eGFR CKD-EPI Reference Range Stage of Chronic Kidney Disease (mL/min/1.73m2) >=60 Normal or subacute (None, 1, or 2) 30-59 Moderate CKD (3) 15-29 Severe CKD (4) 0-14 Kidney Failure (5) The estimated glomerular filtration rate (eGFR) is calculated by the CKD-EPI 2020 equation based on serum creatinine, age, and sex. All results are normalized to 1.73 m2 body surface area. Race is excluded in the eGFR calculation, because self-reported race is a subjective variable and no conclusive evidence supports biological differences between racial groups (N Engl J Med, 2020, 385(19): 1736). This calculation is inaccurate in patients with rapidly changing renal function. Blood BLOOD SPECIMEN / Unknown 04/05/2024 3:01 PM PST 04/05/2024 3:05 PM PST us Tomas Lao MD CHEMISTRY ORDERABLES Final Resul t Performing Organization Address [facility] de Phone Number [facility] [address] [address] * D-Dimer HS (04/05/2024 3:01 PM PST) D-Dimer Quant HS <150 0 - 229 ng/mL DDU [facility] Comment:A D-Dimer value of < 230 ng/mL D-DU is used in conjunction with a clinical pretest probability assessment to exclude VTE in outpatients suspected of DVT and PE. Any use of the age-adjusted cutoff value is a post-analytic modification of this FDA-approved test and is considered off-label use of the test result. [facility] does not have literature to support the validity of an age-adjusted cutoff for our specific assay. Blood 04/05/2024 3:01 PM PST 04/05/2024 3:05 PM PST Tomas Lao MD HEMATOLOGY ORDERABLES Final Resu lt Performing Organization Address [facility] de Phone Number [facility] [address] [address] * Lipase Level (04/05/2024 3:01 PM PST) Lipase 13 7 - 59 U/L [facility] Blood BLOOD SPECIMEN / Unknown 04/05/2024 3:01 PM PST 04/05/2024 3:05 PM PST Tomas Lao MD CHEMISTRY ORDERABLES Final Resul t [facility] [address] [address] * EKG 12 Lead (04/05/2024 2:56 PM PST) VENT RATE 72 BPM XTERNAL EC G PROCEDURES ATRIAL RATE 72 BPM XTERNAL ECG PROCEDURES IN INTERVAL 148 ms XTERNAL ECG PROCEDURES QRS [...] ECG ORDERABLES Final Result Performing Organization Address City/[facility]/ZIP Co de Phone Number XTERNAL ECG PROCEDURES * MRI Knee Left WITHOUT Contrast (03/06/2024 1:54 PM PST) Anatomical Region Laterality Modality Thigh, Knee, Leg Magnetic Resona nce 03/06/2024 4:5 1 PM PST Narrative 03/06/2024 4:53 PM PST [...] Rio M.D. on 03/06/2024 4:53 PM in RoomActually Procedure Note Didier Del Rio MD - [...] Rio M.D. on 03/06/2024 4:53 PM in RoomActually Zulma MOORE [facility] MRI ORDERABLES Final Resul t * (ABNORMAL) UA W Microscopic C/S if Indicated (03/04/2024 5:51 PM PST) UA Color Yellow Yellow [facility] UA Turbidity Clear Clear [facility] UA Glucose Negative Negative [facility] UA Bilirubin Negative Negative [facility] UA Ketones Negative Negative [facility] UA Specific [place] 1.010 <1.030 [facility] UA [...] Stovall PA-C URINE ORDERABLES Final Res ult Performing Organization Address City/State/[facility] Co de Phone Number [facility] [address] [address] * CT Abdomen/Pelvis with Contrast (03/04/2024 5:27 [...] Max Silverio on 03/04/2024 5:36 PM in [employer]Barn 360 Procedure Note Max Silverio MD - [...] Max Silverio on 03/04/2024 5:36 PM in RoomActually us Tiki Stovall PA-C IMG CT ORDERABLES Final Re sult * Comprehensive Metabolic Panel (03/04/2024 4:55 PM PST) Sodium 139 136 - 145 mmol/L [facility] Potassium 4.3 3.6 - 5.0 mmol/L [facility] Chloride 103 98 - 107 mmol/L [facility] Carbon Dioxide 28 21 - 32 mmol/L [facility] Anion Gap 8 4 - 16 mmol/L [facility] Comment: Anion Gap is a calculation based on the electrolytes in the blood. Anion Gap = (Sodium) - (Chloride + Total CO2) BUN 15 6 - 20 mg/dL [facility] Creatinine 0.88 0.70 - 1.30 mg/dL [facility] Glucose 93 74 - 99 mg/dL [facility] Comment:A normal fasting glu cose concentration is less than 100 mg/dL. An impaired fasting glucose concentration is 100-125 mg/dL. A provisional diagnosis of diabetes mellitus can be made when a fasting glucose concentration is greater than 125 mg/dL. Calcium 10.0 8.6 - 10.3 mg/dL [facility] Total Protein 7.1 6.0 - 8.3 gm/dL [facility] Albumin 4.7 3.5 - 5.0 gm/dL [facility] SGPT/ALT 28 10 - 35 U/L [facility] SGOT/AST 20 14 - 50 U/L [facility] Alkaline Phosphatase 71 53 - 128 U/L [facility] Total Bilirubin 0.5 0.3 - 1.2 mg/dL [facility] Blood BLOOD SPECIMEN / Unknown 03/04/2024 4:55 PM PST 03/04/2024 5:24 PM PST us Tiki Stovall PA-C CHEMISTRY ORDERABLES Final Result [facility] [address] [address] * CT Head WITHOUT Contrast (02/18/2024 5:33 [...] Amor M.D. on 02/18/2024 5:37 PM in PowerScribe 360 Procedure Note Lenny Amor MD - [...] Amor M.D. on 02/18/2024 5:37 PM in [id number] us Dusty Mojica MD [facility] ORDERABLES Final Result * X-ray Knee 3 Views Left (02/18/2024 5:29 PM PST) Anatomical Region Laterality Modality Thigh, Knee, Leg Radiographic Im aging 02/18/2024 5:31 PM PST Narrative 02/18/2024 5:32 PM [facility] X-RAY KNEE 3 VIEWS LEFT dated 02/18/2024 [...] Amor M.D. on 02/18/2024 5:32 PM in MOON [facility] 360 Procedure Note Lenny Amor MD - [...] Amor M.D. on 02/18/2024 5:32 PM in [id number] us Dusty [facility] ORDERABL ES Final Result * (ABNORMAL) Lipid Panel (04/23/2020 5:40 PM PDT) Cholesterol 155 108 - 199 mg/dL [facility] Triglyceride 112 26 - 149 mg/dL [facility] Chol/HDL Ratio 4.1 0.0 - 5.0 [facility] HDL 38(L) 40 - 125 mg/dL [facility] LDL 95 0 - 99 mg/dL [facility] Comment:LDL calculated using Freidewald Equation.For complete Cardiac Risk guidelines, refer to the [facility] Test Table or the website at www.[facility].org. Blood specimen (specimen) BLOOD SPECIMEN / Unknown 04/23/2020 5:40 PM PDT 04/24/2020 2:29 AM PDT us Talita Acosta MD CHEMISTRY ORDERABLES Final Result [facility] [address] [place] [id number] from Last 3 Months or Most Recently Relevant to Health Maintenance Insurance [facility] Advance Directives Documents on File Type Date Recorded Patient Disaster Recovery Analyst Expl anation Advance/Healthcare Directive 04/05/2024 5:38 PM [...] 1:16 AM 02/18/2017 5:26 AM Care Teams Sex Offender Treatment Professional Relationship Specialty Start Date End Date None Per Patient, None Per Pt PCP - General 08/16/23 Greta Ware RN,MSN,PMHNP Nurse Practitioner 03/22/19
--- OUTSIDE RECORDS SUMMARY | 2024-04-19 21:42 | XMS_ITS | Encounter Summary ---
Author Organization [facility] Address [address] [place] [address] Phone Care Team Providers Care Patrol Captain Name Role Phone No Pcp Per Patient Primary Care Provider Unavail able Encounter Details Date Type Department Care Team (Late st Contact Info) Description 03/23/2024 Abstract UNKNOWN DEPARTMENT [address] [place] [address] Unknown . Social History Tobacco Use Types Packs/Day Years [...] documented as of this encounter Care Teams Patrol Captain Relationship Specialty Start Date End Date No Pcp Per Patient NO PCP PER PATIENT PCP - General 04/14/19 documented as of this encounter
--- OUTSIDE RECORDS SUMMARY | 2024-04-19 21:42 | XMS_ITS | Encounter Summary ---
Author Organization [facility] Address [address] [place] [address] Phone Care Team Providers Care Turner In Name Role Phone No Pcp Per Patient Primary Care Provider Unavail able Encounter Details Date Type Department Care Team (Late st Contact Info) Description 01/26/2013 Pharmacy Visit [facility] [address] [place] [phone] Social History Tobacco Use Types Packs/Day Years Used Date Smoking Tobacco: Passive Smo ke Exposure - Never Smoker Sex and Gender Information Value Date Recorded Sex Assigned at Not on file Legal Sex Male 9:55 AM PST Gender Identity Male 09/26/2022 8:29 PM PDT Sexual Orientation Not on file documented as of this encounter Plan of Treatment Not on file documented as of this encounter Visit Diagnoses Not on filedocumented in this encounter Care Teams Turner In Relationship Specialty Start Date End Date No Pcp Per Patient NO PCP PER PATIENT PCP - General 04/14/19 documented as of this encounter
--- OUTSIDE RECORDS SUMMARY | 2024-04-19 21:42 | XMS_ITS | Encounter Summary ---
Author Organization [facility] Address [address] [place] [address] Phone Care Team Providers Care Associate Property Manager Name Role Phone No Pcp Per Patient Primary Care Provider Unavail able Encounter Details Date Type Department Care Team (Late st Contact Info) Description 05/01/2020 Abstract Cardiology at [facility], [address] [facility] [place] [address] Neto Stevenson MD [address] [place] [address] Social History Tobacco Use Types [...] documented as of this encounter Care Teams Associate Property Manager Relationship Specialty Start Date End Date No Pcp Per Patient NO PCP PER PATIENT PCP - General 04/14/19 documented as of this encounter
--- OUTSIDE RECORDS SUMMARY | 2024-04-19 21:42 | XMS_ITS | Encounter Summary ---
Author Organization [facility] Address [address] [place] [address] Phone Care Team Providers Care Edi Programmer Name Role Phone No Pcp Per Patient Primary Care Provider Unavail able Encounter Details Date Type Department Care Team (Late st Contact Info) Description 07/07/2016 Pharmacy Visit [facility] [address] Mailcode: [facility], [address] [place] [address] Social History Tobacco Use Types [...] on filedocumented in this encounter Care Teams Edi Programmer Relationship Specialty Start Date End Date No Pcp Per Patient NO PCP PER PATIENT PCP - General 04/14/19 documented as of this encounter
--- OUTSIDE RECORDS SUMMARY | 2024-04-19 21:42 | XMS_ITS | Encounter Summary ---
Author Organization [facility] Address [address] [place] [address] Phone Care Team Providers Care Cook Fruit Name Role Phone No Pcp Per Patient Primary Care Provider Unavail able Encounter Details Date Type Department Care Team (Late st Contact Info) Description 01/27/2013 [facility] [address] [phone] Social History Tobacco Use Types Packs/Day Years [...] on filedocumented in this encounter Care Teams Cook Fruit Relationship Specialty Start Date End Date No Pcp Per Patient NO PCP PER PATIENT PCP - General 04/14/19 documented as of this encounter
[2024-04-19 21:43] LABS: Alanine Aminotransferase 44 U/L (16-63); Albumin Level 4.1 g/dL (3.4-5.0); Alkaline Phosphatase 99 U/L (46-116); Anion Gap 13 mmol/L (4-12); Aspartate Amino Transferase 24 U/L (15-37); Bilirubin,Total 0.4 mg/dL (0.00-1.00); Blood Urea Nitrogen 12 mg/dL (7-18); Calcium 9.3 mg/dL (8.5-10.1); Carbon Dioxide 25 mmol/L (21-32); Chloride 105 mmol/L (98-108); Estimated CRCL calculation 103 ml/min; Estimated Glomerular Filt Rate > 60; Glucose 107 mg/dL (70-99); Lipase 20 U/L (16-77); Osmolality Calculated 295 mOsm/kg (285-295); Potassium 4.1 mmol/L (3.5-5.1); Sodium 143 mmol/L (136-145); Total Protein 7.3 g/dL (6.4-8.2)
--- OUTSIDE RECORDS SUMMARY | 2024-04-19 21:43 | XMS_ITS | Encounter Summary ---
Author Organization [facility] Address [address] [place] [address] Phone Care Team Providers Care Consumer Electronics Merchandiser Name Role Phone No Pcp Per Patient Primary Care Provider Unavail able Encounter Details Date Type Department Care Team (Late st Contact Info) Description 03/19/2018 Intake Transfer Center [address] [place] [address] Social History Tobacco Use Types Packs/Day Years [...] on filedocumented in this encounter Care Teams Consumer Electronics Merchandiser Relationship Specialty Start Date End Date No Pcp Per Patient NO PCP PER PATIENT PCP - General 04/14/19 documented as of this encounter
--- OUTSIDE RECORDS SUMMARY | 2024-04-19 21:43 | XMS_ITS | Encounter Summary ---
Author Organization [facility] Address [address] [place] [address] Phone Care Team Providers Care Diagnostic Assistant Name Role Phone No Pcp Per Patient Primary Care Provider Unavail able Encounter Details Date Type Department Care Team (Late st Contact Info) Description 02/20/2014 Document-Scanned UNKNOWN DEPARTMENT [address] [place] [id number] Other, Faculty Social History Tobacco Use Types Packs/Day Years Used Date Smoking Tobacco: Never Smokeless Tobacco: Never Alcohol Use Standard Drinks/Week Comments Not Asked 0 (1 standard drink = 0.6 oz pur e alcohol) Sex and Gender Information Value Date Recorded Sex Assigned at Not on file Legal Sex Male 9:55 AM PST Gender Identity Male 09/26/2022 8:29 PM PDT Sexual Orientation Not on file documented as of this encounter Procedure Notes * Faculty Other - 04/09/2014 3:22 PM PSTAssociated Order(s): LAB REPORTS documented in this encounter Plan of Treatment Not on file documented as of this encounter Procedures Procedure Name Priority Date/Time Associated Diagnosis Comments LAB REPORTS 02/20/2014 12:00 AM PST documented in this encounter Results * LAB REPORTS (02/20/2014 12:00 AM PST) Narrative 02/20/2014 12:00 AM PST Procedure Note Faculty Other - 04/09/2014 3:22 PM PST us Faculty Other LAB RESULTS ONLY EC Final Result documented in this encounter Visit Diagnoses Not on filedocumented in this encounter Care Teams Diagnostic Assistant Relationship Specialty Start Date End Date No Pcp Per Patient NO PCP PER PATIENT PCP - General 04/14/19 documented as of this encounter
--- OUTSIDE RECORDS SUMMARY | 2024-04-19 21:43 | XMS_ITS | Encounter Summary ---
Author Organization [facility] Address [address] [place] [address] Phone Care Team Providers Care Fruit Or Nut Farmworker Name Role Phone No Pcp Per Patient Primary Care Provider Unavail able Encounter Details Date Type Department Care Team (Late st Contact Info) Description 03/27/2018 [facility] [address] [phone] Social History Tobacco Use Types Packs/Day Years [...] on filedocumented in this encounter Care Teams Fruit Or Nut Farmworker Relationship Specialty Start Date End Date No Pcp Per Patient NO PCP PER PATIENT PCP - General 04/14/19 documented as of this encounter
--- OUTSIDE RECORDS SUMMARY | 2024-04-19 21:43 | XMS_ITS | Encounter Summary ---
Author Organization [facility] Address [address] [place] [address] Phone Care Team Providers Care Division Plant Engineer Name Role Phone No Pcp Per Patient Primary Care Provider Unavail able Encounter Details Date Type Department Care Team (Late st Contact Info) Description 03/23/2018 [facility] [address] [place] [address] Social History Tobacco Use Types Packs/Day Years Used Date Smoking Tobacco: Never Smokeless Tobacco: Never Alcohol Use Standard Drinks/Week Comments Yes 0 (1 standard drink = 0.6 oz pur e alcohol) every two weeks Sex and Gender Information [...] on filedocumented in this encounter Care Teams Division Plant Engineer Relationship Specialty Start Date End Date No Pcp Per Patient NO PCP PER PATIENT PCP - General 04/14/19 documented as of this encounter
--- OUTSIDE RECORDS SUMMARY | 2024-04-19 21:43 | XMS_ITS | Referral Summary ---
Author Organization [facility] Address [address] [place] [address] Phone Care Team Providers Care Plaster Machine Tender Name Role Phone No Pcp Per Patient Primary Care Provider Unavail able Encounters Date Type Department Care Team Description 03/23/2024 Abstract UNKNOWN DEPARTMENT [address] [facility] [place] [address] Unknown 03/05/2024 Abstract Orthopaedics Faculty at [facility] [address] [facility] [place] [phone] Note, Orthopedics Clinic Referral (Left knee ) from Last 3 Months Allergies Active Allergy Reactions Criticality Noted Date Comments Hymenoptera Allergenic Extract Anaphylaxis High 10/08 Calcium Channel Blocking Age nt Diltiazem Analogues Hypotension 03/23/2018 Medications clonazePAM 1 mg oral tablet Take 1 mg by mouth once daily as needed. Active nitroglycerin 0.4 mg sublingual tablet, sublingualIndicatio ns:angina Place 1 tablet under tongue and allow to dissolve. Administer every 5 minutes, max of 3 doses in 15 minutes. Indications: Angina 25 tablet 11/23/19 17 Active Cholecalciferol (Vitamin D3) 10,000 unit oral capsule Take 1 capsule by mouth once daily. Active apixaban 5 mg oral tabletIndications:p revention of pulmonary thromboembolism recurrence Take 1 tablet by mouth two times daily. Indications: Treatment to Prevent Recurrence of a Blood Clot in the Lungs 180 tablet 1 06/15/19 19 Active lamoTRIgine 150 mg oral tablet Take 150 mg by mouth once daily in the evening. 0 06/02/19 19 Active LATUDA 60 mg oral tablet Take 100 mg by mouth once daily. 07/28/19 19 Active EPINEPHrine (EPIPEN) 0.3 mg/0.3 mL injection auto-injector Inject 0.3 mg dose into thigh at first signs of allergic reaction. May repeat one additional dose after 5-15 min if needed. Max doses is 2. 1 each 09/22/19 19 Active dextroamphetamine-a mphetamine 15 mg oral capsule,extended release 24hr Take 15 mg by mouth once daily in the morning. Active fluticasone propionate 50 mcg/actuation nasal spray,suspension Instill 1 spray into each nostril once daily as needed for allergy symptoms. Active diclofenac sodium 1 % topical kit Apply 2 g to affected area three times daily as needed. Active ivabradine (CORLANOR) 5 mg oral tabletIndications:i nappropriate sinus tachycardia Take 5 mg by mouth two times daily. Indications: inappropriate sinus tachycardia 60 tablet 5 11/21/19 19 Active rosuvastatin (CRESTOR) 10 mg oral tablet Take 10 mg by mouth once daily in the evening. Active losartan 50 mg oral tablet Take 50 mg by mouth once daily in the morning. Active CARVEDILOL 12.5 mg oral tablet TAKE ONE TABLET BY MOUTH TWICE A DAY - ADMINISTER WITH FOOD 180 tablet 3 08/09/19 20 Active metoprolol tartrate 25 mg oral tabletIndications:i nappropriate sinus tachycardia Take 1 tablet by mouth two times daily. 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 ASA 81 mg and Atorvastatin 80 mg daily Omeprazole 40 Leave pacing wires, drains and lines in place Pulmonary Toilet Titrate O2 for sats > 92% PT, mobilization Start Metoprolol 12.5 mg BID Stricture of male urethra 03/26/2016 Assessment & Plan (03/27/2016 11:47 AM PST): Benavides placed by urology Continue Benavides for 24 hours D/c in am 03/28 if mobilizing. At risk for electrolyte imbalance 03/26/2016 Assessment & Plan (03/26/2016 7:56 PM PST): Renal function set and magnesium daily PRN potassium and magnesium replacement and lab draws K > 4.5, Mag > 2.5 At risk for deep venous thrombosis 03/26/2016 Assessment & Plan (03/27/2016 11:07 AM PST): At elevated risk of DVT due to immobility and surgery DVT prophylaxis with Heparin subcutaneous 5,000 q8h SCDs to bilateral lower extremities Encourage ambulation as appropriate Stress hyperglycemia 03/26/2016 Assessment & Plan (03/27/2016 11:47 AM PST): Glucose elevated in this acute setting Following CBGs Goal CBG <180 Insulin Infusion with Endotool protocol Transition to sliding scale insulin when taking consistent PO Glucose tabs and d5 IV if hypoglycemic Postoperative anemia due to acute blood loss Assessment & Plan (03/26/2016 7:55 PM PST): Anemia following surgery Monitor for continued sources of blood loss CBC daily Transfusion threshold 21 or if clinically unstable Acute post-operative pain 03/26/2016 Assessment & Plan (03/27/2016 11:06 AM PST): Multimodal pain control with: Hydromorphone IV Oxycodone PO/PF Acetaminophen Scheduled Microcytic anemia 03/26/2016 Assessment & Plan (03/26/2016 7:57 PM PST): Ferritin levels low Hematology following IV iron on 03/27 DOMENICO (obstructive sleep apnea) 03/22/2016 Assessment & Plan (03/26/2016 7:50 PM PST): Continue CPAP at night Asthma 03/22/2016 Assessment & Plan (03/26/2016 7:50 PM PST): - beclomethasone 2 puff BID - albuterol 2 puff q6h prn 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 Angiogram on 03/16 showed LAD thrombus, but images difficult to interpret - EKG PRN - ASA 81 mg - atorvastin 80mg - follow up with Dr. Cisse or Dr. Donald regarding findings intra-op, ? Consistent with thrombus - discuss therapeutic anticoagulation with Heme and surgery service. Hyperlipidemia 03/20/2016 Assessment & Plan (03/20/2016 8:13 PM PST): - on atorvastatin at home - Higher dose of 80mg atorvastatin daily Depression 03/20/2016 Assessment & Plan (03/26/2016 7:48 PM PST): - continue prozac and abilify HTN (hypertension) 03/20/2016 Assessment & Plan (03/22/2016 11:17 AM PST): - continue amlodipine 10mg - SBP goal <130 unless having chest pain with hypertension Penile curvature, acquired 07/10/2012 Resolved Problems Problem Noted Date Diagnosed Date Resolved Date At risk for obstructive sleep apnea 03/26/2016 03/26/2016 Headache 03/21/2016 03/26/2016 Assessment & Plan (03/22/2016 11:21 AM PST): Likely due to NTG gtt. No history of headaches prior to NTG gtt - improved with tylenol - head CT on 03/21 showed no evidence of hemorrhage or intracranial abnormality - continue tylenol 650mg q6h and oxycodone prn Immunizations Name Administration Dates Next Due Influenza, injectable, quadr ivalent, preservative free (IIV4) 11/22/2016 Social History Tobacco Use Types Packs/Day Years Used Date Smoking Tobacco: Never Smokeless Tobacco: Never Tobacco Cessation:Counseling Given: Not Answered Alcohol Use Standard Drinks/Week Comments Yes 0 (1 standard drink = 0.6 oz pure alcohol) 1-2 drinks (mix cocktail) every week PHQ-2 Answer Date Recorded Total 0 05/21/2023 Sex and Gender Information Value Date Recorded Sex Assigned at Not on file Legal Sex Male 9:55 AM PST Gender Identity Male 09/26/2022 8:29 PM PDT Sexual Orientation Not on file Last Filed Vital Signs Vital Sign Reading Time Taken Comments Blood Pressure 126/78 05/21/2023 9:01 PM PDT Pulse 74 05/21/2023 9:01 PM PDT Temperature 36.5 C (97.7 F) 05/21/2023 6:27 PM PDT Respiratory Rate 17 05/21/2023 9:01 PM PDT Oxygen Saturation 96% 05/21/2023 9:01 PM PDT Inhaled Oxygen Concentration - - Weight 108.9 kg (240 lb) 05/21/2023 6:27 PM PDT Height 172.7 cm (5' 8 ) 12/15/2022 8:06 PM PST Body Mass Index 36.49 12/15/2022 8:06 PM PST Functional Status * Because of a physical, mental, or emotional condition, do you have serious difficulty doing errandsalone such as visiting the doctor? Answer Date of Assessment Author Status No 11/22/2016 9:52 AM PDT Activ e Mental Status * Because of a physical, mental, or emotional condition, do you have serious difficulty concentrating, remembering, or making decisions? (5 years old or older) Answer Entry Date Author Status No 11/22/2016 9:52 AM PDT Activ e Plan of Treatment Not on file Medical Devices Implanted Type Area Filter Plant Operator Device Identifier Shelf Expiration Date Model / Serial / Lot Plate Sternum Wire Acutie - [id number] Implanted:Qty: 2 on 03/26/2016 by Uziel Cisse MD at [facility] er N/A: Chest [employer] [id number] / / Insurance MATCHER OFFBEARER [facility] Advance Directives * Full Code (Latest Code Status on File) Date Activated Date Inactivated Comments 11/11/2018 11:05 PM 11/12/2018 4:54 PM * Full Code Date Activated Date Inactivated Comments 11/11/2018 11:05 PM 11/11/2018 11:05 PM * Full Code Date Activated Date Inactivated Comments 10/17/2018 10:11 PM 10/18/2018 4:06 PM * Full Code Date Activated Date Inactivated Comments 03/24/2018 1:44 AM 03/25/2018 4:18 PM * Full Code Date Activated Date Inactivated Comments 11/19/2016 1:15 PM 11/22/2016 8:22 PM Care Teams Plaster Machine Tender Relationship Specialty Start Date End Date No Pcp Per Patient NO PCP PER PATIENT PCP - General 04/14/19
--- OUTSIDE RECORDS SUMMARY | 2024-04-19 21:43 | XMS_ITS | Encounter Summary ---
Author Organization [facility] Address [address] [place] [address] Phone Care Team Providers Care Claims Adjuster Supervisor Name Role Phone No Pcp Per Patient Primary Care Provider Unavail able Encounter Details Date Type Department Care Team (Late st Contact Info) Description 03/23/2018 Procedure Pass [facility] Diagnostic Imaging at [facility] [address] [place] [address], [address] [place] [phone] Social History Tobacco Use Types Packs/Day Years [...] on filedocumented in this encounter Care Teams Claims Adjuster Supervisor Relationship Specialty Start Date End Date No Pcp Per Patient NO PCP PER PATIENT PCP - General 04/14/19 documented as of this encounter
--- OUTSIDE RECORDS SUMMARY | 2024-04-19 21:43 | XMS_ITS | Clinical Summary ---
Author Organization [facility] Address [address] [place] [address] Phone Care Team Providers Care Grade Setter Name Role Phone No Pcp Per Patient Primary Care Provider Unavail able Allergies Active Allergy Reactions Criticality Noted Date [...] pulmonale 03/24/2018 Coronary artery disease invo lving pauma coronary artery of [place] heart with angina pectoris 03/24/2018 Abnormal stress [...] q6h prn Coronary artery disease invo lving pauma coronary artery with angina pectoris (HCC), ostial LCA lesion 03/22/2016 Anxiety 03/22/2016 NSTEMI (non-ST elevated myoc ardial infarction) (HCC) with LAD thrombus 03/20/2016 Assessment & Plan (03/27/2016 11:42 AM PST): Hx of NSTEMI in [place] in January 2016 and peak troponin 2.23 [...] continue tylenol 650mg q6h and oxycodone prn Encounters Date Type Department Care Team Description 03/23/2024 Abstract UNKNOWN DEPARTMENT [address] [place] [address] Unknown 03/05/2024 Abstract Orthopaedics Faculty at [facility] [address] [facility] [place] [phone] Note, Orthopedics Clinic Referral (Left knee ) from Last 3 Months Immunizations Name Administration Dates Next Due Influenza, injectable, quadr ivalent, preservative free (IIV4) 11/22/2016 Family History Medical History Relation Name Comments Diabetes Mother Bleeding disorder Neg Hx Cardiac arrhythmia < 50 yr of age Neg Hx Coronary Artery Disease Neg Hx Heart Attack Neg Hx Relation Name Status Comments Mother Social History Tobacco Use [...] Mass Index 36.49 12/15/2022 8:06 PM PST Plan of Treatment Health Maintenance Due Date Last Done Comments Pneumococcal vaccination (3 of 3 - PCV20 or PCV21) 2046 03/10/2016, 05/28/2015, 05/09/2015 Influenza (Flu) vaccination Completed 10/09, 12/01/2022, 11/21/2020, Additional history exists COVID-19 Vaccination Completed 11/10/2023, 02/14/2020, 01/24/2020 Medical Devices Implanted Type Area Solderer Assembly Repair Device Identifier Shelf Expiration Date Model / Serial / Lot Plate Sternum Wire Acutie - [id number] Implanted:Qty: 2 on 03/26/2016 by Uziel Cisse MD at [facility] er N/A: Chest [employer]UTE INNOVATIONS [id number] / / Insurance SQL REPORT [employer] [place] [address] Advance Directives * Full Code (Latest Code [...] 1:15 PM 11/22/2016 8:22 PM Care Teams Grade Setter Relationship Specialty Start Date End Date No Pcp Per Patient NO PCP PER PATIENT PCP - General 04/14/19
--- OUTSIDE RECORDS SUMMARY | 2024-04-19 21:43 | XMS_ITS | Data Portability ---
Author Organization [place] [facility] Address [address] [place] [address] Care Team Providers Care Log Sawyer Name Role Phone YANDEL DAMICO Primary Care Provider Assessment No assessment recorded. Plan of Treatment Reminders Order Date Submit Date Provider Last Modified By Organization Details Last Modified Time Details Appointments None record ed. Lab None record ed. Referral None record ed. Procedures None record ed. Surgeries None record ed. Imaging None record ed. Medication Orders None record ed. Patient TargetsNo targets recorded. Patient InstructionsNo instructions recorded. Reason for Referral None Reported. Results Created Date Observation Date Name Description Value Unit Range Abnormal Flag Note LastModifiedBy Organization Detail LastModifiedTime 11/17/19 17 11/12/2016 upper endos copy proce dure (EGD) (PROC ) No observ ation record ed. [email or web address] Not Available 2016 17:47:32 04/16/19 18 04/12/2017 upper endos copy (EGD) with colon oscop y (PROC ) No observ ation record ed. [email or web address] Not Available 2017 13:43:33 Result Notes None recorded. Procedures Surgical History Date Name Laterality Status Provider Name and Address Organization Details Recorded Time 2017 EGD/COLON - Dr. Ram completed Ester Khan MD [address] [place], [address], [place] [facility] 8 15:05:27 2016 Esophagogastroduodenoscopy completed Geronimo Khan MD [address] [place], [address], [place] [facility] 7 15:11:22 Imaging Results Imaging Date Name Status LastModified by Organiz ation Details LastModified Time 11/12/2016 upper endoscopy procedure (EGD) (PROC) completed [email or web address] Information not available 11/16/2016 17:47:32 04/12/2017 upper endoscopy (EGD) with colonoscopy (PROC) completed [email or web address] Information not available 04/15/2017 13:43:33 Procedure Notes None recorded. Medical Equipment None Reported. Vitals None Recorded Social History None recorded. Functional Status None recorded. Mental Status None recorded. Family History Nothing Reported. Medical History No medical history recorded. Past Encounters Encounter ID Performer Location Encounter Start Date Encounter Closed Date Diagnosis/Indication Diagnosis SNOMED-CT Code Diagnosis ICD10 Code Diagnosis Note [id number] Yandel Damico DO [facility] [address] [place] [address] 08/04/2016 16:08:01 08/05/2016 11:18:50 [id number] Yandel Damico DO [facility] [address] [place] [address] 08/24/2016 11:58:21 08/24/2016 16:39:05 [id number] Yandel Damico DO [facility] [address] [place] [address] 11/09/2016 20:54:04 11/10/2016 12:29:44 [id number] Ester Khan MD [facility] [address] [place] [address] 11/11/2016 17:15:41 11/11/2016 19:11:36 [id number] Ester Khan MD [facility] [address] [place] [address] 11/12/2016 13:15:40 11/12/2016 16:08:00 Abdominal pain 10221809 R10.9 [id number] Yandel Damico DO [facility] [address] [place] [address] 11/25/2016 14:22:12 11/25/2016 16:37:14 [id number] Yandel Damico DO [facility] [address] [facility] [place] [address] 12/23/2016 14:54:14 12/23/2016 15:37:15 [id number] LAZARO WILSON, CASEWORKER [facility] [address] [facility] [place] [address] 01/13/2017 16:23:50 01/17/2017 14:13:02 [id number] Nia Rodriguez , L[place]ON [facility] [address] [place] [address] 02/13/2017 10:26:49 02/13/2017 10:58:46 [id number] Nicholas Lorenzana DO [facility] [address] [place] [address] 02/15/2017 19:07:27 02/16/2017 12:35:47 [id number] Yandel Damico DO [facility] [address] [facility] [place] [address] 03/02/2017 17:40:56 03/02/2017 19:08:56 [id number] KATHRIN HammondP-C [facility] [address] [place] [address] 04/07/2017 17:38:16 04/08/2017 13:17:59 [id number] Yandel Damico DO [facility] [address] [facility] [place] [address] 04/11/2017 14:09:50 04/11/2017 16:36:22 [id number] Ester Khan MD [facility] [address] [place] [address] 04/12/2017 13:18:11 04/12/2017 15:47:25 Diarrhea [id number] R19.7 Health Concerns Section Related Observation LastModified by Organization Detai ls LastModified Time None Recorded Concern Status LastModified by Organization Details LastModified Time None Recorded Advance Directives Directive None Recorded Payers Encounter Date Sequence Insurance Name Policy Number Policy Delaney Covered Member ID Delaney Member ID Guarantor Name 11/12/2016 1 [employer] - [employer] - [place] Cedric Parra [id number] Cedric Parra 04/12/2017 1 [employer] - OPEN OPTION (EPO) [id number] Cedric Parra [id number] Cedric Parra
--- OUTSIDE RECORDS SUMMARY | 2024-04-19 21:43 | XMS_ITS | Encounter Summary ---
Author Organization [facility] Address [address] [place] [address] Phone Care Team Providers Care Cupola Man Name Role Phone No Pcp Per Patient Primary Care Provider Unavail able Encounter Details Date Type Department Care Team (Late st Contact Info) Description 03/25/2018 [facility] [address] [phone] Social History Tobacco Use Types Packs/Day Years [...] on filedocumented in this encounter Care Teams Cupola Man Relationship Specialty Start Date End Date No Pcp Per Patient NO PCP PER PATIENT PCP - General 04/14/19 documented as of this encounter
--- OUTSIDE RECORDS SUMMARY | 2024-04-19 21:43 | XMS_ITS | Data Portability ---
Author Organization [facility] Ibis Wesley/Bryson Lambert/Glendy, Patient's Home Address [address] [place] [address] Assessment No assessment recorded. Plan of Treatment Reminders Order Date Submit Date Provider Last Modified By Organization Details Last Modified Time Details Appointments None record ed. Lab None record ed. Referral None record ed. Procedures None record ed. Surgeries None record ed. Imaging None record ed. Medication Orders None record ed. Patient TargetsNo targets recorded. Patient Instructions Encounter Date Encounter Id Patient Instructions Last Modified By Organization Details Last Modified Time 12/10/2019 [id number] insomnia: care instructions Not available 12/10/2019 15:04:47 gastroesophageal reflux disease (GERD): care instructions Not available 12/10/2019 15:04:47 high cholesterol : care instructions Not available 12/10/2019 15:04:47 sleep apnea: car e instructions Not available 12/10/2019 15:04:47 body mass index: care instructions Not available 12/10/2019 15:04:47 learning about healthy weight Not available 12/10/2019 15:04:47 high blood press ure: care instructions Not available 12/10/2019 15:04:47 learning about h igh blood pressure Not available 12/10/2019 15:04:47 learning about m ood disorders Not available 12/10/2019 15:04:47 attention defici t hyperactivity disorder (ADHD) in adults: care instructions Not available 12/10/2019 15:04:47 I spent 68 minut es face to face w/ pt. on telehealth. Not available 12/10/2019 13:31:03 Reason for Referral None Reported. Results Created Date Observation Date Name Description Value Unit Range Abnormal Flag Note LastModifiedBy Organization Detail LastModifiedTime Result Notes None recorded. Problems Name Problem SNOMED Code Status Onset Date Resolution Date Notes Provider Name and Address Organization Details Recorded Time Essential hypertens ion 59690795 Active 2019 Lillian barker, ASAF - Maryjane, Ibis/Radha, Bryson Mary/[place] 0 11:31:46 Asthma 937673335 Active 2019 Lillian barker, ASAF - Maryjane, Ibis/Radha, Bryson Mary/[place] 0 11:31:55 Depressiv e disorder 82905611 Active 2019 Lillian barker, ASAF - Maryjane, Ibis/Radha, Bryson Mary/[place] 0 11:32:04 Obesity 423005568 Active 2019 Lillian barker, ASAF - Maryjane, Ibis/Radha, Bryson Mary/[place] 0 11:32:16 Sleep apnea 51962195 Active 2019 Lillian barker, ASAF - Maryjane, Ibis/Radha, Bryson Mary/[place] 0 11:32:29 Testoster one level below reference range 037559433 Active 2019 Lillian barker, ASAF - Maryjane, Ibis/Radha, Bryson Mary/[place] 0 11:32:40 Tachycard ia 4089979 Active 2019 On celso Blount MD [address] [place] [address] [address], [place], [address], [facility] - Maryjane, Ibis/Radha, Bryson Mary/Al[place] 0 12:18:01 Insomnia 831151458 Active 2019 Thalia Blount MD [address], [place], [address], [facility] - Maryjane, Ibis/Radha, Bryson Mary/[place] 0 12:03:20 History of congenita l hypospadi as 666619043559 102 Active 2019 Thalia Blount MD [address], [place], [address], [facility] - Maryjane, Ibis/Radha, Bryson Mary/[place] 0 12:06:19 Irritable bowel syndrome 25285479 Active 2019 Thalia Blount MD [address], [place], [address], [facility] - Maryjane, Ibis/Radha, Bryson Mary/[place] 0 12:10:11 Gastroeso phageal reflux disease 227999265 Active 2019 Thalia Blount MD [address] [facility], [place], [address], [facility] Maryjane, Ibis/Radha, Bryson Mary/Al[place] 0 12:10:22 Recurrent urinary tract infection 345108796 Active 2019 Thalia Blount MD [address] [facility], [place], [address], [facility] Maryjane, Ibis/Radha, Bryson Mary/[place] 0 12:13:32 Hyperlipi demia 76853194 Active 2019 Thalia Blount MD [address] [facility], [place], [address], [facility] - Maryjane, Ibis/Radha, Bryson Mary/[place] 0 12:14:03 Anxiety 29047674 Active 2019 Thalia Blount MD [address], [place], [address], [facility] - Maryjane, Ibis/Radha, Bryson Mary/[place] 0 12:14:12 Panic attack 786683848 Active 2019 Thalia Blount MD [address] [facility], [place], [address], [facility] - Maryjane, Ibis/Radha, Bryson Mary/[place] 0 12:15:51 Seasonal allergic rhinitis 149254048 Active 2019 Thalia Blount MD [address], [place], [address], [facility] Maryjane, Ibis/Radha, Bryson Mary/[place] 0 12:16:20 Recurrent pulmonary embolism 127676030 Active 2018 Thalia Blount MD [address], [place], [address], [facility] Maryjane, Ibis/Radha, Bryson Mary/[place] 0 12:17:41 Blood coagulati on disorder 47923041 Active 2019 DILIP-1 Thalia Blount MD 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, [place], [address], [facility], Ibis/Radha, Bryson Mary/[place] 0 12:18:55 Attention deficit hyperacti vity disorder 563444705 Active 2019 Thalia Blount MD [address], [place], [address], [facility] Maryjane, Ibis/Radha, Bryson Mary/[place] 0 14:49:44 Problem Notes None recorded. Procedures Surgical History Date Name Laterality Status Provider Name and Address Organization Details Recorded Time 11/08/19 20 echocardiography completed Thalia Blount MD [address], [place], [address], [facility] - Maryjane, Ibis/Radha, Bryson Mary/[place] 12/10/2019 12:15:17 10/09/19 20 removal of orthopedic wire from sternum completed Lillian Walters [place] - Maryjane, Ibis/Radha, Bryson Mary/[place] 12/10/2019 11:31:16 09/10/19 20 Orthopedic Surgery completed Thalia Blount MD [address], [place], [address], [facility] - Maryjane, Ibis/Radha, Bryson Mary/[place] 12/10/2019 14:48:25 09/08/19 20 Shoulder Surgery completed Lillian [facility] Giovany Maryjane , Ibis/Radha, Bryson Mary/[place] 12/10/2019 11:30:59 03/10/19 19 removal of pulmonary embolus completed Lillian [facility] - Maryjane, Ibis/Radha, Bryson Mary/[place] 12/10/2019 11:30:39 02/07/19 19 removal of pulmonary embolus completed Lillian Walters [place] - Maryjane, Ibis/Radha, Bryson Mary/[place] 12/10/2019 11:30:32 02/07/19 19 Colonoscopy completed Thalia Blount MD [address], [place], [address], [facility] - Maryjane, Ibis/Radha, Bryson Mary/[place] 12/10/2019 12:15:03 09/08/19 18 removal of orthopedic wire from sternum completed [facility] Maryjane, Ibis/Radha, Bryson Mary/[place] 12/10/2019 11:29:55 03/10/19 17 CABG completed Lillian Walters [facility] Maryjane, Ibis/Radha, Bryson Mary/[place] 12/10/2019 11:29:38 09/08/19 16 cholecystectomy completed Lillian Walters [place] Giovany Maryjane, Ibis/Radha, Bryson Mary/[place] 12/10/2019 11:29:13 09/08/19 16 Cholecystectomy completed Thalia Blount MD [address], [place], [address], [facility] - Maryjane, Ibis/Radha, Bryson Mary/[place] 12/10/2019 14:48:25 07/09/19 13 repair of urethra completed Lillian Walters SD Giovany Mckinley n, Ibis/Radha, Bryson Mary/[place] 12/10/2019 11:28:53 08/07/18 98 hypospadias repair completed Lillian Lange on, Ibis/Radha, Bryson Mary/[place] 12/10/2019 11:28:29 removal of orthopedic wire from sternum completed Lillian Mckinleyn, Ibis/Radha, Bryson Mary/[place] 12/10/2019 11:31:17 Imaging Results None recorded. Procedure Notes None recorded. Medical Equipment None Reported. Allergies Allergen ID Allergen Name Allergen Category Reaction Reaction Severity Criticality Documentation Date Start Date Code Code System Note Provider Name and Address Organization Details Recorded Time 6406 Product containin g penicilli n (product) medicatio n rash mild Not available 12/10/2019 29495 8001 SNOMED Lillian barker, ASAF - Maryjane, Ibis/Radha, Bryson Mary/[place] 0 11:26:31 6407 diltiazem medicatio n decreased blood pressure Not available Not available 12/10/2019 3443 RxNorm ASAF Lock[place] - Maryjane, Ibis/Radha, Bryson Mary/[place] 0 11:27:23 6408 mirtazapi ne medicatio n tachycard ia Not available Not available 12/10/2019 44642 RxNorm Lillian barker, ASAF - Maryjane, Ibis/Radha, Bryson Mary/[place] 0 11:27:36 6409 bee pollen environme nt,medica tion anaphylax is Not available Not available 12/10/2019 62021 7 RxNorm Lillian barker, ASAF - Maryjane, Ibis/Radha, Bryson Mary/[place] 0 11:27:52 6411 diltiazem Not available decreased blood pressure severe Not available 12/10/20192018 3443 RxNorm Thalia Blount MD [address] [place] [address]. [address], [place], [address], ASAF - Maryjane, Ibis/Radha, Bryson Mary/Al[place] 0 14:47:58 Medications Name Sig Start Date Stop Date Status Note LastModified by Organization Details LastModified Time losartan 50 mg tablet Take 1 tablet every day by oral route. active Not Available Not Available No t Available dextroamph etamine-am phetamine 7.5 mg tablet TK 1 T PO D AROUND 3 PM 2019 active Not Available Not Available Not Avai lable lamotrigin e 150 mg tablet 1 tablet every day by oral route. active Not Available Not Available No t Available Advair Diskus 100 mcg-50 mcg/dose powder for inhalation 1 inhalatio n twice a day by inhalatio n route. active Not Available Not Available No t Available pantoprazo le 20 mg tablet,del ayed release 1 tablet every day by oral route. active Not Available Not Available No t Available Ventolin HFA 90 mcg/actuat ion aerosol inhaler 2 puffs as needed by inhalatio n route. active Not Available Not Available No t Available Adderall XR 25 mg capsule,ex tended release 1 capsule every day by oral route. active Not Available Not Available No t Available Epi E-Z Pen 1:1000 injection syringe Take by injection route. active Not Available Not Available No t Available rosuvastat in 10 mg tablet Take 1 tablet every day by oral route. active Not Available Not Available No t Available pregabalin 75 mg capsule 1 capsule twice a day by oral route. active Not Available Not Available No t Available Vitamin D3 5000 IU active Not Available Not A vailable Not Available Ventolin HFA active Not Available Not Available Not Available Eliquis 5 mg tablet Take 1 tablet twice a day by oral route. active Not Available Not Available No t Available Corlanor 5 mg tablet Take 1 tablet twice a day by oral route. active for tachycard ia Not Available Not Available Not Available Vraylar 1.5 mg capsule 1 capsule every day by oral route. active Not Available Not Available No t Available Vitals Date Recorded Body weight Provider Name an d Address Organization Details Last Updated DateTime 12/10/2019 968793.94 g Lillian Walters SD Giovany Wesley, Be /Radha, Bryson Hernandez/Glendy 12/10/2019 12:15:16 Date Recorded Body mass index (BMI) Body height Provider Name and Address Organization Details Last Updated DateTime 12/10/2019 40.5 kg/m2 173.99 cm Thalia Blount MD [address], [place], [address], [facility] Maryjane, Ibis/Radha, Bryson Hernandez/Alpgabriela 12/10/2019 14:46:16 Social History Question Answer Notes LastModified by Organizat ion Details LastModified Time Tobacco Smoking Status Never Smoker Lillian barker, ASAF Wesley, Ibis/Radha, Bryson Hernandez/Glendy 12/10/2019 12:16:28 Do You Have An Advance Directive? No Information not available 12/10/2019 What Is Your Level Of Alcohol Consumption? Occasional Information not available 12/10/2019 Do You Wear A Helmet When Biking? Yes Information not available 12/10/2019 Are You Blind Or Do You Have Difficulty Seeing? No Information not available 12/10/2019 What Is Your Level Of Caffeine Consumption? Occasional Information not available 12/10/2019 Are You A Caregiver? No Information not available 12/10/2019 How Much Tobacco Do You Chew? None Information not available 12/10/2019 Concerns About Meeting Basic Needs (food, Housing, Heat, Etc)? No Information not available 12/10/2019 Are You Currently Employed? No Information not available 12/10/2019 Are You Deaf Or Do You Have Serious Difficulty Hearing? No Information not available 12/10/2019 What Type Of Diet Are You Following? REGULAR Information not available 12/10/2019 Which Illicit Or Recreational Drugs Have You Used? No Information not available 12/10/2019 Do You Or Have You Ever Used E-cigarettes Or Vape? 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 Yes Recently Moved To [place] Information not available 12/10/2019 How Many Days In The Past Year Have You Had A Heavy Drinking Consumption (4+ Female, 5+ Male)? 0 Information not available 12/10/2019 Are There Any Guns Present In Your Home? No Information not available 12/10/2019 Live Alone Or With Others? With Others Information not available 12/10/2019 Marital Status Single Informatio n not available 12/10/2019 What Was The Date Of Your Most Recent Tobacco Screening? 12/10/2019 Information not available 12/10/2019 Have You Ever Been Counseled For Unhealthy Alcohol Use? No Information not available 12/10/2019 Do You Use Protection During Sex? Usually Information not available 12/10/2019 Seat Belts Used Routinely Yes Information not available 12/10/2019 Are You Sexually Active? No Information not available 12/10/2019 Smoke Alarm In Home Yes Information not available 12/10/2019 Do You Have Smoke And Carbon Monoxide Detectors In Your Home? Yes Information not available 12/10/2019 Are You Passively Exposed To Smoke? No Information not available 12/10/2019 Do You Or Have You Ever Used Smokeless Tobacco? Never Used Smokeless Tobacco Information not available 12/10/2019 How Much Tobacco Do You Smoke? No Information not available 12/10/2019 General Stress Level Medium Information not available 12/10/2019 Do You Use Sunscreen Routinely? Yes Information not available 12/10/2019 Supplements Yes Information n ot available 12/10/2019 Sex: Unknown Functional Status Question Answer Note LastModified by Organizat ion Details LastModified Time Do you have difficulty walking or climbing stairs? No Information not available 12/10/2019 Do you have transportation difficulties? No Information not available 12/10/2019 Urinary incontinence assessment performed? No Information not available 12/10/2019 Are you able to walk? YESWOREST Information not available 12/10/2019 Do you have difficulty doing errands alone? No Information not available 12/10/2019 Are you able to care for yourself? Yes Information n ot available 12/10/2019 Do you have difficulty dressing or bathing? No Information not available 12/10/2019 What is your exercise level? Occasional Information not available 12/10/2019 Mental Status Question Answer Note LastModified by Organization D etails LastModified Time Do you have difficulty concentrating, remembering or making decisions? Yes Information no t available 12/10/2019 Family History Relationship Description Onset Age of this Age Resolved Age Notes LastModified by Organization Details LastModified Time Mother Obesity Not available 1 02/08/2019 14:48:03 Mother Type 2 diabetes mellitus Not available 2019 14:48:03 Mother Depressive disorder Not available 2019 14:48:03 Mother Attention deficit hyperactivit y disorder Not available 12/09 14:48:03 Mother Irritable bowel syndrome Not available 2019 14:48:03 Mother Ulcerative colitis Not available 2019 14:48:03 Mother Diabetes mellitus 55 Not available 2019 14:48:03 Maternal Grandmother Arthritis 70 Not available 03/2019 14:48:03 Maternal Grandmother Malignant neoplasm of colon and/or rectum Not available 2019 14:48:03 Maternal Grandmother Malignant tumor of breast 70 Not available 2019 14:48:03 Maternal Grandfather Cerebrovascu lar accident 76 Not available 03/2019 14:48:03 Maternal Grandfather Malignant neoplasm of colon and/or rectum Not available 2019 14:48:03 Paternal Grandmother Dementia 91 Not available 12/09 14:48:03 Paternal Grandfather Cerebrovascu lar accident 80 Not available 03/2019 14:48:03 Paternal Grandfather Coronary arterioscler osis 80 Not available 2019 14:48:03 Paternal Grandfather Blood coagulation disorder suspec claudia Not available 12/10/2019 14:48:03 Notes:only child Medical History Condition Response Anxiety Disorder Y ADD/ADHD Y Heart Problems Y Depression Y Immunizations Vaccine Type Date Status Note Provider Nam e and Address Organization Details Recorded Time MMR 4 completed Thalia Blount MD [address], [place], [address], [facility] - Ibis Wesley/Bryson Garcia/Glendy 12/10/2019 14:48:32 tetanus toxoid, unspecified formulation 0 completed Thalia Blount MD [address], [place], [address], [facility] Leonidas Anthony, Bryson Hernandez/[place] 12/10/2019 14:48:33 Pneumococcal conjugate PCV 13 6 completed Thalia Blount MD [address], [place], [address], [facility] Leonidas Wesley Yong Hui/[facility] 12/10/2019 14:48:33 Past Encounters Encounter ID Performer Location Encounter Start Date Encounter Closed Date Diagnosis/Indication Diagnosis SNOMED-CT Code Diagnosis ICD10 Code Diagnosis Note [id number] Thalia Blount MD [facility] [address] [place] [address] 12/10/2019 12:12:38 12/10/2019 17:10:36 Tachycardia 3753864 R00.0 We discussed that you have had a full cardiac evaluation and been told that you are free to exercise as able. I encourage you to continue the Corlanor and follow up with cardiology . We also discussed working on [facility] to the tachycardi a- when you have it happen, observe it with kindness rather than fear and anger. We practiced belly breathing also known as diaphragma tic breathing. I encourage you to practice this for 5 minutes morning and night. Feel free to increase how often you are practicing this breath and for how long. A terminal gauger goal would be to get to 20-30 minutes daily. Please have your new cardiologi st send me their office note. Sleep apnea 39184300 G47 .30 We discussed the importance of using C-PAP but since you report that your is mild and you cannot tolerate the C-PAP it is important for you to work on sleeping on your side and losing weight. You may also want to learn how to play the digeridoo- an Turkmen instrument that has actually been found effective in treating sleep apnea! Body mass index 40+ - severely obese 799150935 Z68.41 You are going to start the Whole List a program through a doctor in [place]. Once you have completed the 12 weeks I'd like to follow back up with you and see how you are feeling. I encourage you to stop drinking soda- you've done a great job cutting back to 2 /wk, now just give them up! Blood coag ulation disorder 13025420 D68.59 Continue the Eliquis lifetime. Testostero ne level below reference range 146564660 R79.89 We will address this at a later visit. FOr now, please work on stress reduction, increase exercise, and weight loss. It could be that as you lose weight your testostero ne level will improve. Depressive disorder 1318 9007 F32.9 Continue your current medication s, increase excercise to a goal of 60 minutes EVERY DAY. Consider seeing a therapist. I recommend that you go on the website psychology today[employer] to search for a therapist. I especially recommend Tena Mcdermott, [facility] and Carli Sanchez, PhD. We discussed that you have had significan t health issues that have been traumatic and it will be good to process them. Gastroesop hageal reflux disease 015082630 K21.9 Please avoid known triggers for heartburn including: caffeine, alcohol, acidic and spicy foods. Remain upright for at least 2 hours after meals, elevate the head of your bed by placing blocks under the front of the bed. You can begin to try reducing the pantoprazo le - alternatin g with Famitodine and then we will continue to address this and work on getting you off the PPI entirely. Essential hypertension 28166614 I10 Work on weight loss, exercise, food changes, meditation /breathing exercises. History of congenital hypospadias 4720924354 99629 Z87.710 Follow up with neurology if needed. Hyperlipidemia 25509431 E78.5 Plan to recheck and work on improving your food choices. Insomnia 266168078 G47.0 1 Please continue non-medica tion efforts to help improve your sleep. This includes avoiding liquids after 6 PM, avoiding screens (TV, phone, computer, etc) for at least 1 hour before bed, consider taking a warm bath or shower before bed and practice relaxation exercises when you are in bed, such as guided imagery, meditation , or progressiv e muscle relaxation . Attention deficit hyperactivity disorder 830625429 F90.9 You are taking a stimulant medication . It is possible that there would be better medication s to be on but we will address this in the future. Fatigue 77340112 R53.83 This is likely multifacto rial. Will work on improving your nutrition, exercise, losing weight, improving sleep and relaxation skills and then check back in. Health Concerns Section Related Observation LastModified by Organization Detai ls LastModified Time None Recorded Concern Status LastModified by Organization Details LastModified Time None Recorded Advance Directives Directive N: Payers Encounter Date Sequence Insurance Name Policy Number Policy Delaney Covered Member ID Delaney Member ID Guarantor Name 12/10/2019 1 [employer] Cedric Parra [id number] Cedric Parra Notes Date Note Type Note Provider Name and Address Organization Details Recorded Time 12/10/2019 text/html Pt encounter completed using telehealth video platform of [email or web address] due to current COVID-19 pandemic. Pt has verbally consented to the use of [employer] in order for me to provide necessary medical care during the pandemic. For first functional medicine appointment. Moved from [place] and will be going to nursing school in February. Is motivated to improve health w/o having to rely on so many medications. Feels frustrated w/ approach of just adding meds.Primary symptoms that are particularly troublesome: asthma related to the cold, tachycardia, GI upset issues, SOB w/ increased HR. Has not had a stress test. Did have recent echo.Maternal health during - healthy, was age late 39. At he had a collapsed lung and hypospadias.: Had CPR for 2 minutes @ and was in NICU for 3 days. Hypospadias repair @ 6 months.2013- second reconstructive surgery for hypospadias- and began having some recurrent UTI- had steroid injections pre-surgery (unclear if whole body or not). Breast fed.Was born and raised in [place] in [place].Age 6-10- no physical health issues. Delta like grew up early - enjoyed adults more than kids. Didn't have much social - Was bullied a little. Academics, did well until middle school. Socially didn't have friends. 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 Had untreated depression in that time. Weight gain significant beginning in 7th grade.Age [age]- Began to struggle in high school. Kept up decent grades, but wasn't doing well mentally.Age 18- Dx w/ low testosterone- was on supplementation d/t cardiac issues and hasn't gone back on. Was tried on Effexor, celexa, other SSRIs, then started to see a primary mill roller and was dx w/ ADHD and spectrum btwn bipolar depression and anxiety/depression. Lamitrogine, adderall, lyrica for anxiety. Tried therapy for 6 months, then felt irritable and felt like wasn't working. GI issues began- thinks that related to anxiety. Ulcers. Abdominal pain often, diarrhea/GI upset- would get sent home from school since felt so bad. Had ER/hospital admits for bleeding ulcers. Was on PPI- and has been on since age [age]- second hypospadias repair. Nightmare- was really hard to deal w/ had an indwelling catheter after the repair b/c had to let a graft heal- for 2 months.2017- age 20. Had an SD. 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 This was at [facility] in [place]. Feels like never got back to where he was since that surgery. Never got back to the same stamina.2017- dx w/ sleep apnea. Weight was around 260-270 (5'8.5 )Chronic pain related to the sternotomy- had wires removed and pain feels like improving- although last PM went to ER d/t tachycardia and some chest discomfort. Has no baseline pain any longer.2019- pulmonary embolism x 2. Which is when they figured out that related to blood clots. Started on Eliquis and dx w/ genetic mutation as factor. Still had some chronic chest pain in 2019.Father is out of touch w/ emotions. Mother was supportive.Difficulty in parent's marriage began in 2017. Seems to be improving- talking a little more.2019- moved from [place], [place] to [place] to re-set and figure out what he wanted to do. Had L shoulder surgery and sternal wires removed.Support- some friends. Not a lot of support. They live back in [place]. Is in touch daily on the phone.Antibiotics- mainly related to UTIs in 2012 and 2014- 5-6 courses of antibiotics.Exercise- does like to kayak; since moved to [place] is able to take walks QOD-QD it's flat so that doesn't limit him in terms of tachycardia. Two mile walk.Relaxation- likes to go on a drive and clear his head- for 20-30 minutes.Nutrition- two meals/day, skips lunch. Eggs and toast in AM; does a lot of take-out - no motivation to cook; usually will be a sandwich- [employer] grabs a sandwich.Soda- used to be a couple/day is now to couple/week. Regular soda. Drinks coffee w/ milk and sweet and lo- 2/day.Snack foods- doesn't snack much. If feels hungry, will eat a meal rather than a snack.fruit & veg- not much. struggles b/c doesn't know how to cook or eat.Hasn't noticed feeling that differentIn [place]- lots of bored eating b/c nothing happens in [place] . Doesn't crave soda anymore since has cut back.Goes to bed early- so usually eats not long before goes to bed. Eats dinner at 8 PM and in bed at 9 PM.Has difficulty w/ staying asleep- got up at 4 AM. Can have some awakenings in the night, but usually is able to sleep from 5-11 hours. If sleeps 5 hours then Throws C-PAP off in the middle of the night- often throws it off in the first hour and feels that doesn't work for him and was told that he had mild sleep apnea.Average has 8 hours/night. Is pretty consistent w/ going to bed at 8 or 9 PM. Spends day looking for work. Has unemployment coming in and some savings.Stress- mainly w/ driving.ADHD- struggles w/ this a lot. Has trouble focusing on a lot of things. NO other therapy b/c was so discouraging.Has signed up for the [employer]- run by Helena Cortez MD- group coaching on mindset on how you look at food. Based in [place]. Starts this on December 16. He lived in [place] and was in school there and then moved to [place]. 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 Thalia Blount MD [address] [place] [address]. [address], [place], [address], [facility] - Maryjane, Ibis/Radha, Bryson Hernandez/Glendy 12/10/2019 18:19:23
--- OUTSIDE RECORDS SUMMARY | 2024-04-19 21:43 | XMS_ITS | Encounter Summary ---
Author Organization [facility] Address [address] [place] [address] Phone Care Team Providers Care Behavioral Modification Assistant Name Role Phone No Pcp Per Patient Primary Care Provider Unavail able Reason for Visit * Reason Onset Date Comments Appointment Question 03/28/2018 Encounter Details Date Type Department Care Team (Late st Contact Info) Description 03/28/2018 Telephone Cardiology at [facility], [facility] [address] [facility] [address] , [place] [address] Neto Stevenson MD [address] [place] [address] Appointment Question Social History Tobacco Use Types Packs/Day Years [...] encounter Miscellaneous Notes * Telephone Encounter - Mackenzie Watson - 03/28/2018 8:34 AM PST PATIENT QUESTION/CONCERN Person calling: Patient [phone] What is the question/concern: Patient states he was in-patient last week and needs an urgent appointment with Dr Stevenson as he needs to get back to [place]. (IB Message sent to Aleida.) ~~~ ROUTE TO APPROPRIATE CAR NURSE POOL ~~~ ~~~ IF NURSE PAGED, ROUTE HIGH PRIORITY ~~~ ~~~For patients who were only seen in the hospital and do not yet have an appointment in our clinic, route to the aluminum pool installer of the discharging trauma therapist. See discharge summary for information~~~ documented in this encounter Plan of Treatment Not on file documented as of this encounter Visit Diagnoses Not on filedocumented in this encounter Care Teams Behavioral Modification Assistant Relationship Specialty Start Date End Date No Pcp Per Patient NO PCP PER PATIENT PCP - General 04/14/19 documented as of this encounter
--- OUTSIDE RECORDS SUMMARY | 2024-04-19 21:43 | XMS_ITS | Encounter Summary ---
Author Organization [facility] Address [address] [place] [address] Phone Care Team Providers Care Dulite Machine Bluer Name Role Phone No Pcp Per Patient Primary Care Provider Unavail able Encounter Details Date Type Department Care Team (Late st Contact Info) Description 12/11/2013 Pharmacy Visit [facility] [address] [facility] [place] [phone] Social History Tobacco Use Types Packs/Day Years [...] on filedocumented in this encounter Care Teams Dulite Machine Bluer Relationship Specialty Start Date End Date No Pcp Per Patient NO PCP PER PATIENT PCP - General 04/14/19 documented as of this encounter
--- OUTSIDE RECORDS SUMMARY | 2024-04-19 21:43 | XMS_ITS | Encounter Summary ---
Author Organization [facility] Address [address] [place] [address] Phone Care Team Providers Care Postage Machine Operator Name Role Phone No Pcp Per Patient Primary Care Provider Unavail able Encounter Details Date Type Department Care Team (Late st Contact Info) Description 03/24/2018 Pharmacy [facility] [address] [place] [phone] Social History Tobacco Use Types Packs/Day Years [...] on filedocumented in this encounter Care Teams Postage Machine Operator Relationship Specialty Start Date End Date No Pcp Per Patient NO PCP PER PATIENT PCP - General 04/14/19 documented as of this encounter
--- OUTSIDE RECORDS SUMMARY | 2024-04-19 21:44 | XMS_ITS | Encounter Summary ---
Author Organization [facility] Address [address] [place] [address] Phone Care Team Providers Care Rn Labor And Delivery Name Role Phone No Pcp Per Patient Primary Care Provider Unavail able Encounter Details Date Type Department Care Team (Late st Contact Info) Description 03/26/2016 Procedure Pass 6A Intra [facility] Admitting Desk Located on the 9th Floor [address] [place] [address] Social History Tobacco Use Types Packs/Day Years [...] on filedocumented in this encounter Care Teams Rn Labor And Delivery Relationship Specialty Start Date End Date No Pcp Per Patient NO PCP PER PATIENT PCP - General 04/14/19 documented as of this encounter
--- OUTSIDE RECORDS SUMMARY | 2024-04-19 21:44 | XMS_ITS | Encounter Summary ---
Author Organization [facility] Address [address] [place] [address] Phone Care Team Providers Care Fisherman Helper Name Role Phone No Pcp Per Patient Primary Care Provider Unavail able Encounter Details Date Type Department Care Team (Late st Contact Info) Description 02/22/2014 Document-Scanned UNKNOWN DEPARTMENT [address] [place] [address] Other, Faculty Social History Tobacco Use Types [...] Priority Date/Time Associated Diagnosis Comments LAB REPORTS 02/22/2014 12:00 AM PST documented in this encounter Results * LAB REPORTS (02/22/2014 12:00 AM PST) Narrative 02/22/2014 12:00 AM PST Procedure Note Faculty Other - 04/09/2014 3:22 PM PST us Faculty Other LAB RESULTS ONLY EC Final Result documented in this encounter Visit Diagnoses Not on filedocumented in this encounter Care Teams Fisherman Helper Relationship Specialty Start Date End Date No Pcp Per Patient NO PCP PER PATIENT PCP - General 04/14/19 documented as of this encounter
--- OUTSIDE RECORDS SUMMARY | 2024-04-19 21:44 | XMS_ITS | Encounter Summary ---
Author Organization [facility] Address [address] [place] [address] Phone Care Team Providers Care Transfusion Nurse Name Role Phone No Pcp Per Patient Primary Care Provider Unavail able Encounter Details Date Type Department Care Team (Late st Contact Info) Description 03/30/2016 Pharmacy [facility] [address] [phone] Social History Tobacco Use Types Packs/Day Years [...] on filedocumented in this encounter Care Teams Transfusion Nurse Relationship Specialty Start Date End Date No Pcp Per Patient NO PCP PER PATIENT PCP - General 04/14/19 documented as of this encounter
--- OUTSIDE RECORDS SUMMARY | 2024-04-19 21:44 | XMS_ITS ---
Author Name Interface, [id number] Address [address] [place] [address] Organization [facility] Address [address] [place] [address] Care Team Providers Care Property Management Accountant Name Role Phone Kelechi Cabrales Unavailable Unavailable Allergies and Adverse Reactions Medication/Group Name Reaction Severity Date Bee sting Anaphylaxis Severe 03/31/2023 Calcium Channel Blocking Agents-Dihydropyridines Mild 03/31/2023 Plan Date Type Value 06/27/2023 APPOINTMENT Apixaban Oral 03/31/2023 APPOINTMENT D-Dimer panel 03/31/2023 APPOINTMENT DISCUSS HOLDING ANTI COAG 03/31/2023 APPOINTMENT [facility]dimer - add [facility] Reason for Visit Apixaban Oral Encounters Date Name 03/31/2023 Hypercoagulability s aviles (finding) 03/31/2023 Long-term current us e of anticoagulant (situation) 03/31/2023 Male hypogonadism (d isorder) 03/31/2023 Obstructive sleep ap abida 03/31/2023 Penile hypospadias 03/31/2023 Personal history of pulmonary embolism 03/31/2023 Urethral stricture Immunizations Date Name Route Dose Instructions Refusal Reason Stat us Covid-19 vaccine (Pfizer) Completed Flu vaccine - Adult Comp leted Diagnostic Results Date Type Test Units Lower Limit Upper Limit Result Flag Comments Status Ordered By Specimen Source Lab Address 03/31 D-Dim er panel D-dim er, ug/mL FEU mcg/mL FEU <0.19 The D-Dimer test is used frequentl y to excludean acute PE or DVT. In patients with a low tomoderat e clinical risk assessmen t and a D-Dimerre sult <0.50 mcg/mL FEU, the likelihoo d of a PEor DVT is very low. However, a thromboem boliceven t should not be excluded solely on the basisof the D-Dimer level. Increased levels of D-Dimerar e associate d with a PE, DVT, DIC, malignanc ies,infla mmation, sepsis, surgery, trauma, ,and advancing patient age.(Justin 2006 11:295(2) :[phone]) For vivian alcala informati on, please refer to:http:/ /educatio AIRSIS/faq/ [id number](Th is link is being provided for informati onal/educ ational purposes only) FINAL Kelechi Cabrales [facility], [address] [phone] Medications Date Name Route Dose Frequency Instructions Start Date End Date Status Pantoprazole (Sodium) Oral Delayed Release PO 1.0 tablet,d elayed release (DR/EC) QPM active Epinephrine IM Pen Injector 0.3 mg/0.3 mL (1:1,000) (Adult) injection 1.0 auto-inj cherry as needed For bee stings active Anastrozole Oral PO Q Week active Lisdexamfetamine Oral PO 1.0 capsule QAM active Rosuvastatin Calcium Oral 1 q hs active Lamotrigine Oral PO 1.0 tablet BID active Glycopyrrolate Oral PO 1.0 tablet BID active Valsartan Oral PO 1.0 tablet QD active Testosterone Cypionate IM 100 mg IM QWK act irais Pregabalin Oral PO 1.0 capsule BID active 06/26 apixaban 5 MG Oral Tablet orally 1.0 tablet 2 times per day 2023 active 10/02 150 ML sodium chloride 9 MG/ML Injection intravenously 500.0 mL once 2021 active 02/09 apixaban 5 MG Oral Tablet orally 1.0 tablet 2 times per day 2019 active Problems Diagnosis Status Date of Diagnosi s Anxiety disorder Active Coronary artery disease Active Essential hypertension Active Male hypogonadism (disorder) Active Bipolar illness Active HISTORY OF MYOCARDIAL INFARCTION (HEART ATTACK) Active BMI 40+ morbidly obese Active Personal history of pulmonary embolism Active Long-term current use of anticoagulant (situatio n) Active Obstructive sleep apnea Active Dyslipidemia Active Hypercoagulability state (finding) Active Urethral stricture Active Penile hypospadias Active Erythrocytosis Active Vital Signs Date Type Value 03/31/2023 Body Temperature 97.50 03/31/2023 Heart Beat 78.00 03/31/2023 Respiratory Rate 16.00 03/31/2023 Oxygen Saturation 99.00 03/31/2023 BSA 2.26 03/31/2023 Pain Scale 0.00 03/31/2023 Weight 247.60 03/31/2023 Height 69.00 03/31/2023 BMI 36.56 03/31/2023 Intravascular Systolic 121 03/31/2023 Intravascular Diastolic 72 Notes Section * Med Onc Follow Up Note (Short Version) Patient Name: COLLEEN PARRA : 1995 Date of Visit: 03/31/2023 Referring Provider:??Vonnie Monreal M.D. Attending:??Kelechi Cabrales M.D., F.A.C.P.?? Chief Complaint DIAGNOSIS:? * Hypercoagulable state??with (A) thrombosis on a non-calcified plaque in the proximal left anterior descending coronary artery, diagnosed on March 20, 2016;??(B) unprovoked pulmonary embolism, diagnosed on March 19, 2018; (C) new pulmonary emboli, diagnosed on March 23, 2018. 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 * (A) IRBY CABG on March 26, 2016, followed by occlusion of IRBY graft and spontaneous resolution of LAD occlusion; (B) intravenous heparin, followed by apixaban 10 mg twice-daily; (C) full-dose enoxaparin (with discontinuation of apixaban) for ~3 months, followed by apixaban 5 mg twice-daily. * Reduction in testosterone dosage Mr. Parra returned for follow-up.?? 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 ??He returns??for recommendations regarding??perioperative anticoagulant??therapy for??urethroplasty??to be performed by Dr. Vonnie Monreal??at [facility] on April 06, 2023. ??He had previously undergone??urethroplasty??with??buccal mucosal graft??at [facility] in 2012??for treatment of??hypospadias. ??Since then,??he has developed??partial obstruction??due to??tortuosity of the??bladder outlet??channel to the??buccal mucosal graft. ??He now has to strain??in order to??empty his bladder. Since I last saw the patient,??he has had several ED??admissions for??atypical chest pain. ??Coronary angiography,??performed??on February 04, 2023, by ??Maxine??at [facility]??revealed??patent coronary arteries??without evidence of spasm??or microvascular dysfunction. ??Accordingly,??his atypical chest pain??is presumed to be non-cardiac in origin. ??The patienthas had no??additional episodes of??venous or arterial??thromboembolism??on??apixaban??5 mg twice-daily??since March 2018. He denied fever, chills, cough, shortness of breath,??drenching night sweats, enlarged lymph nodes,skin rash, weakness, numbness, vision changes, or other new neurological symptoms. He has experienced several minor nosebleeds on apixaban, but denied other symptoms of abnormal bleeding.?? He is currently pain-free. ??He continues on nocturnal CPAP??for??treatment of obstructive sleep apnea. ??HisPFS was reviewed and is otherwise unchanged from his last office visit with me on September 30, 2021. Review of Systems A complete 10-point review of systems is negative except as noted??in the above history of present illness Medications * Valsartan Oral 320 mg tablet 1 tablet PO QD * Apixaban Oral 5 mg tablet 1 tablet orally 2 times per day. * Epinephrine IM Pen Injector 0.3 mg/0.3 mL (1:1,000) (Adult) 0.3 mg/0.3 mL auto-injector 1 auto-injector injection as needed For bee stings * Lamotrigine Oral 100 mg tablet 1 tablet PO BID * Pregabalin Oral 100 mg capsule 1 capsule PO BID * Vyvanse (Lisdexamfetamine Oral) 70 mg capsule 1 capsule PO QAM * Testosterone Cypionate IM 200 mg/mL kit 100 mg IM QWK * Anastrozole Oral 1 mg tablet PO Q Week * Rosuvastatin Calcium Oral 5 mg tablet 1 q hs * Glycopyrrolate Oral 2 mg tablet 1 tablet PO BID * Pantoprazole (Sodium) Oral Delayed Release 20 mg tablet,delayed release (DR/EC) 1 tablet,delayed release (DR/EC) PO QPM Allergies * Bee sting * Calcium Channel Blocking Agents-Dihydropyridines Vital Signs Blood pressure: 121/72, Sitting, R arm, Regular, Pulse: 78, Temperature: 97.5 F, Respirations: 16, O2 sat: 99%, At Rest, Room Air, Pain Scale: 0, Height: 69 in, Weight: 247.6 lb, BSA: 2.26, BMI: 36.56 kg/m2 Performance status: 90% Physical Exam General: The patient is an overweight young man in no apparent distress. HEENT: No scleral icterus. PERRLA. No pharyngeal injection or exudate. No mucositis. No suspicious oral lesions. Neck: Supple. Thyroid not enlarged. Lymph nodes: No palpable cervical, supraclavicular, axillary, epitrochlear, inguinal-femoral, or popliteal lymphadenopathy. Lungs: Clear to auscultation. Cardiovascular: No JVD, gallops, or murmurs.?? Regular rate and rhythm. Abdomen: Liver and spleen not palpable. No masses or tenderness. Active bowel sounds. Extremities: No edema, cyanosis, or clubbing.?No varicose veins, palpable venous cords, or tenderness of either lower extremity. Musculoskeletal: No vertebral or chest wall tenderness. Skin: No livedo reticularis. No rash or suspicious lesions. : Not examined today. Neurological: The patient was fully alert, oriented, and appropriate. Laboratory Data CBC Lab Results 03/31/2023 09/30/2021 04/23/2020 04/17/2020 04/17/19 20 02/12/2019 CBC WBC x 10^3/uL 6.5 8.1 9.7 6.5 RBC x 10^6/uL 6.34 5.58 5.10 4.95 NRBC, absolute, x 10^3/uL 0 NRBC, % 0.0 HGB g/dL 18.9 (HH) 15.4 14.7 14.2 HCT % 56.0 (H) 47.1 43.3 42.7 MCV fL 88.3 84.4 84.9 86.3 MCH pg 29.8 27.6 28.8 28.7 MCHC g/dL 33.8 32.7 33.9 33.3 RDW % 13.2 13.4 14.0 13.6 PLT x 10^3/uL 268 364 346 343 MPV fL 9.3 9.7 9.2 9.6 Khalida % 56.1 67.2 56.3 61.9 LY % 35.0 26.6 36.8 29.1 MO % 6.6 3.7 5.7 6.4 EO % 0.9 1.4 0.7 (L) 2.0 BA % 0.8 0.6 0.5 0.6 IG % 0.60 0.50 Khalida # (ANC) x 10^3/uL 3.7 5.4 5.5 4.0 LY # x 10^3/uL 2.3 2.2 3.6 1.9 MO # x 10^3/uL 0.4 0.3 0.6 0.4 EO # x 10^3/uL 0.1 0.1 0.1 0.1 BA # x 10^3/uL 0.1 0.1 0.1 0.0 IG # x 10^3/uL 0.04 0.04 Auto CBC comments Slide Review consistent with automated results. CMP Lab Results 03/31/2023 09/30/2021 04/23/2020 04/17/2020 04/17/1902/12/2019 Chemistries Glucose mg/dL 95 136 (H) 118 (H) BUN mg/dL 9 10 16 Creatinine mg/dL 1.0 1.0 1.0 Sodium mmol/L 141 139 142 Potassium mmol/L 4.0 4.1 3.4 (L) Chloride mmol/L 100 104 103 CO2 mmol/L 29 23 24 Calcium mg/dL 10.2 9.7 9.3 Albumin g/dL 4.7 4.7 4.3 Total protein g/dL 7.4 7.4 7.2 Globulin g/dL 2.7 2.7 2.9 Bilirubin, total mg/dL 0.7 0.3 0.3 Alkaline phosphatase U/L 90 111 103 AST/SGOT U/L 33 26 23 ALT/SGPT U/L 38 44 (H) 44 (H) GFR estimate mL/min/1.73m2 >60 >60 >60 On??March 26, 2023, a hemogram revealed a white blood cell count of 9500 with normal differential count;??hemoglobin 17.3, hematocrit 49.1, MCV??85.9; platelet count 256,000.?? A comprehensive metabolic panel??was normal??except for an elevated AST of 73, ALT 54, and total bilirubin 1.3;??the total protein??was 7.4, albumin 5.0, alkaline phosphatase 92, calcium 9.7, and creatinine 1.03. Coagulation Lab Results 03/31/2023 09/30/2021 04/23/2020 04/17/2020 04/17/1902/12/2019 Coags D-dimer, ug/mL FEU <0.19 <0.19 0.19 <0.19 <0.19 Assessment & Plan The patient has had no??additional episodes of venous or arterial thromboembolic disease??since??he??experienced??unprovoked pulmonary??embolism in March 2018. 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 His hemoglobin concentration has??declined??with reduction in the??testosterone cypionate dose. ?? The patient is now??scheduled for??urethroplasty??and??placement of a suprapubic??bladder drainage catheter??on April 06, 2023, by Dr. Monreal. ??Obviously,??he is at high risk for??venous??thromboembolic disease??when his??anticoagulant therapy is??interrupted??during the perioperative period. I??recommend??that apixaban be held??on??April 05, 2023, and then??restarted on??April 08, 2023, assuming that??postoperative hemostasis is adequate.?? On??April 07, 2023,??I recommend that he receive??enoxaparin??40 mg subcutaneously. PLAN: * My recommendations regarding??perioperative anticoagulant therapy??are summarized above. * I plan to??round on the patient at [facility] on??April 07, 2023. Plan for Pain (x) No pain reported Kelechi Cabrales M.D., F.A.C.P.?? cc: Enoc Goodman MD (PMG) Erick Law MD ([facility]) Vonnie Monreal MD (Referring) Neto Stevenson MD ([facility]) MD Cameron Barrera MD ([facility]) Electronically signed by Kelechi Cabrales M.D., F.A.C.P. 04/03/2023 17:27 PST
[2024-04-19 21:53] LABS: Add Urine Microscopic? YES; Appearance Urine Clear (Clear); Bilirubin Urine Negative (Negative); Blood Urine 3+ (Negative); Color Urine Light Yellow (Yellow); Glucose Urine UA Negative (Negative); Ketones Urine Negative (Negative); Leukocyte Esterase Ur Negative LEU/UL (Negative); Nitrate Urine Negative (Negative); Protein Urine Negative (Negative); Urobilinogen Urine 0.2 mg/dL (0.2-1.0); pH Urine 5.5 (5.0-8.0)
[2024-04-19 21:58] LABS: Bacteria Urine None seen /hpf; RBC Urine >75 /hpf (0-2); Squamous Epithelial Cell Urine None seen /hpf (Few); WBC Urine 0-3 /hpf (0-3)
[2024-04-19] MEDS: HYDROmorphone HCL INJ (*CRX) 2 MG/ML VIAL 1 MG IV PUSH (22:15)
[2024-04-19] MEDS: METOCLOPRAMIDE HCL INJ 10 MG/2 ML VIAL IV PUSH (22:15)
--- NOTE | 2024-04-19 22:34 | ED_ITS ---
HPI - Male Genitourinary General Chief complaint: Urogenital-Male Stated complaint: Flank Pain Time Seen by Provider: 04/19/24 21:01 Source: patient Mode of arrival: ambulatory Limitations: no limitations History of Present Illness HPI Narrative: this is a 28-year-old male with a history of kidney stones presents with right flank pain radiating to his right groin with no hematuria no fever chills no chest pain or shortness of breath does have nausea with no vomiting. Onset (ago): hour(s) Duration: intermittent Severity: moderate Severity scale (1-10): 8 Quality: aching Relieving factors: medication Related Data Home Medications ?Medication ?Instructions ?Recorded ?Confirmed ?Last Taken ?Type apixaban 5 mg tablet (Eliquis) 5 mg PO BID 04/19/24 04/19/24 Unknown History lisdexamfetamine 60 mg capsule 60 mg PO DAILY 04/19/24 04/19/24 Unknown History (Vyvanse) rosuvastatin 5 mg tablet (Crestor) 5 mg PO DAILY 04/19/24 04/19/24 Unknown History valsartan 160 mg tablet (Diovan) 160 mg PO ONCE 04/19/24 04/19/24 Unknown History Allergies Allergy/AdvReac Type Severity Reaction Status Date / Time No Known Allergies Allergy Verified 04/19/24 21:05 Review of Systems 2 Review of Systems: All systems reviewed & are unremarkable except as noted in HPI and below PMFSH Past Medical History Medical History Kidney stones Exam 2 Const: General: cooperative, healthy appearing, comfortable, no acute distress and well developed HENMT: Head: normal to inspection Chest: Chest palpation & inspection: normal inspection of the chest and normal palpation of entire chest wall Resp: Effort & Inspection: normal respiratory effort and able to speak in complete sentences Cardio: Palpation: normal PMI Rate: regular rate Rhythm: regular rhythm Heart sounds: S1 normal heart sound present and S2 normal heart sound present GI: Inspection: normal to inspection : General: Yes CVA tenderness Skin: General skin exam: normal color and no rashes or lesions noted Neuro: General: oriented to person, oriented to place, oriented to time and patient oriented x3 Course Course Emergency Course: patient with right flank pain CT scan does not show any kidney stones or any urolithiasis, white cell count within normal range UA shows red blood cells, patient received IV fluids, 4mg of Zofran IV, 4mg IV morphine which did not control his pain, and subsequently 1mg of IV Dilaudid and after reassessment pain patient's pain level has improved. Vital Signs Vital signs: Vital Signs Temperature 36.8 C 04/19/24 20:59 Pulse Rate 98 04/19/24 20:59 Respiratory Rate 20 04/19/24 20:59 Blood Pressure 130/87 04/19/24 20:59 Pulse Oximetry 98 04/19/24 20:59 Oxygen Delivery Room Air 04/19/24 20:59 Temperature 36.8 C 04/19/24 20:59 Pulse Rate 98 04/19/24 20:59 Respiratory Rate 20 04/19/24 20:59 Blood Pressure 130/87 04/19/24 20:59 Pulse Oximetry 98 04/19/24 20:59 Oxygen Delivery Room Air 04/19/24 20:59 MDM - Male Genitourinary Lab Data 04/19/24 21:47 04/19/24 21:47 Labs: Lab Results 04/19/24 Range/Units 21:47 WBC 6.9 (4.8-10.8) K/mm3 RBC 5.12 (4.70-6.10) M/mm3 Hgb 14.6 (14.0-18.0) g/dL Hct 43.7 (40.0-54.0) % MCV 85.4 (78.0-102.0) fL MCH 28.5 (27.0-31.0) pg MCHC 33.4 (32-36) g/dL RDW 13.9 (11.6-14.4) % Plt Count 268 (150-420) K/mm3 MPV 9.6 (8.7-11.0) fl Immature Gran % (Auto) 0.4 H (0.0-0.0) % Neut % (Auto) 56.5 (50.0-70.0) % Lymph % (Auto) 33.4 (18.0-42.0) % [place] % (Auto) 7.4 (2.0-11.0) % Eos % (Auto) 1.7 (1.0-6.0) % Baso % (Auto) 0.6 (0.0-1.0) % Lymph # (Auto) 2.30 (1.10-4.50) K/mm3 [place] # (Auto) 0.51 (0.10-0.90) K/mm3 Eos # (Auto) 0.12 (0.02-0.50) K/mm3 Baso # (Auto) 0.04 (0.00-0.10) K/mm3 Abs Immat Gran (auto) 0.03 H (0.00-0.00) K/mm3 Absolute Neuts (auto) 3.88 (1.70-7.20) K/mm3 Absolute Nucleated RBC 0.00 (0.00-0.00) K/mm3 Nucleated RBC % 0.0 (0-0.0) % Sodium 143 (136-145) mmol/L Potassium 4.1 (3.5-5.1) mmol/L Chloride 105 (98-108) mmol/L Carbon Dioxide 25 (21-32) mmol/L Anion Gap 13 H (4-12) mmol/L BUN 12 (7-18) mg/dL Creatinine 1.18 (0.70-1.30) mg/dL Estim Creat Clear Calc 103 ml/min Estimated GFR > 60 (59 - ) Glucose 107 H (70-99) mg/dL Calculated Osmolality 295 (285-295) mOsm/kg Lactic Acid 2.0 (0.4-2.0) mmol/L Calcium 9.3 (8.5-10.1) mg/dL Total Bilirubin 0.4 (0.00-1.00) mg/dL AST 24 (15-37) U/L ALT 44 (16-63) U/L Alkaline Phosphatase 99 (46-116) U/L Total Protein 7.3 (6.4-8.2) g/dL Albumin 4.1 (3.4-5.0) g/dL Lipase 20 (16-77) U/L Urine Color Light yellow (Yellow) Urine Appearance Clear (Clear) Urine pH 5.5 (5.0-8.0) Ur Specific [place] 1.010 (1.010-1.020) Urine Protein Negative (Negative) Urine Glucose (UA) Negative (Negative) Urine Ketones Negative (Negative) Ur Blood (Man) 3+ H (Negative) Urine Nitrate Negative (Negative) Urine Bilirubin Negative (Negative) Urine Urobilinogen 0.2 (0.2-1.0) mg/dL Leukocyte Esterase Rfl Negative (Negative) LEONARD/UL Urine RBC >75 H (0-2) /hpf Urine WBC 0-3 (0-3) /hpf Ur Squamous Epith Cells None seen (Few) /hpf Urine Bacteria None seen (None) /hpf Critical Care Time Critical Care Time Critical Care Time: No Discharge Plan Discharge Clinical Impression: Urolithiasis Qualifiers: Urinary calculus location: other lower urinary tract location Qualified Code(s): N21.8 - Other lower urinary tract calculus Patient Disposition: Home, Self-Care Condition: Stable Instructions: Antibiotic Form, Ureteral Stones (ED) Additional Instructions: advised patient to take medication as prescribed and to follow with primary care physician if symptoms persist or worsen. Patient Language: Pashto Prescriptions: New oxycodone-acetaminophen [Percocet] 5-325 mg tablet 1 tablet PO Q6H PRN (Reason: pain) Qty: 20 0RF ondansetron 4 mg tablet,disintegrating 4 mg PO Q6H PRN (Reason: nausea and vomiting) Qty: 14 0RF No Action Eliquis 5 mg tablet 5 mg PO BID valsartan [Diovan] 160 mg tablet 160 mg PO ONCE rosuvastatin [Crestor] 5 mg tablet 5 mg PO DAILY lisdexamfetamine [Vyvanse] 60 mg capsule 60 mg PO DAILY Follow-up/Referrals: UNKNOWN,DOCTOR [Primary Care Provider] - Time of Disposition: 22:39
[2024-04-19 22:50] VITALS: BP 132/74; PULSE 72; RESP 18; O2SAT 96
== END 2024-04-19 22:50 | disposition home or self-care (01) ==
PROVIDERS: Emergency Provider Emergency Medicine
DX: N21.8 Other lower urinary tract calculus (principal); Z79.899 Other long term (current) drug therapy; Z79.01 Long term (current) use of anticoagulants
CPT/HCPCS: 36415; 74176; 80053; 81001; 83605; 83690; 85025; 96361; 96374; 96375; 99284; J1171; J2270; J2405; J2765; J7030